=== PATIENT | female | born 1975 | race Caucasian/White ===

== ENCOUNTER 2022-01-20 11:05 | Emergency (ER) | payer BC ==
[2022-01-20] MEDS ORDERED: ONDANSETRON 4 MG (ODT) TAB ONE (11:48)
--- NOTE | 2022-01-20 12:30 | RAD REPORT ---
EXAM DESCRIPTION: CT - Head Brain Wo Cont - 01/20/2022 12:01 pm CLINICAL HISTORY: Headache, chronic, new features or increased frequency, MULTIPLE DRILL OPERATOR shunt placement approxi mately 1 year earlier COMPARISON: None TECHNIQUE: Axial 5 mm thick images of the head were obtained without IV contrast. All CT scans are performed using dose optimization technique as appropriate and may include automated exposure control or mA/KV adjustment according to patient size. FINDINGS: No intracranial hemorrhage, mass, edema or shift of mid-line structures. No acute infarcti on changes seen. No cortical edema or sulcal effacement seen. Ventricles are normal size. MULTIPLE DRILL OPERATOR shunt is in place. Tubing enters through a right frontal bone access site. Tip of the shunt tube is in the mi dline frontal horn of the lateral ventricles. Mastoid air cells and visualized portions of the paranasal sinuses are clear. No acute bony findings. IMPRESSION: Negative non-contrast CT head examination for acute finding. MULTIPLE DRILL OPERATOR shunt appears well positioned with the ventricles normal in size. No comparison is available.
--- NOTE | 2022-01-20 12:33 | RAD REPORT ---
EXAM DESCRIPTION: RAD - Shuntogram - 01/20/2022 12:19 pm CLINICAL HISTORY: Headache, history of APRICOT WASHER shunt placement 1 year earlier COMPARISON: No comparisons FINDINGS: Shunt tube is in place entering 3 right frontal bone access site. Tip of the shunt tube is in the midline, well-positioned. No abnormal bend, kink or disruption of the shunt tube seen. Distal tip is in the left-side pelvis. IUD is in place. Abdominal and pelvic bowel gas pattern is unremarkable. No acute chest finding. Cerv ical spine degenerative changes are present. C5-7 fusion changes are present. IMPRESSION: Negative shunt series
[2022-01-20] MEDS ORDERED: HYDROCODONE/APAP 5/325 MG TAB ONE (12:42)
--- NOTE | 2022-01-20 13:47 | ER ---
Nurse's Notes [facility] Name: Shelby Arias Age: 46 yrs Sex: Female : 1975 Arrival Date: 01/20/2022 Time: 11:08 Bed 9 Private MD: Diagnosis: Headache;Other visual disturbances Presentation: 01/20 11:17 Chief complaint: Patient states: "I had brain surgery last year in February for jd3 hydrocephalies and other stuff and had a shunt placed. well I am now starting to have migraines, and dizziness, nausea, visile disturbances. my doctor in [place] told me to come in and get my shunt adjusted.". Coronavirus screen: At this time, the client does not indicate any symptoms associated with coronavirus-19. Ebola Screen: No symptoms or risks identified at this time. Initial Sepsis Screen: Does the patient meet any 2 criteria? No. Patient's initial sepsis screen is negative. Does the patient have a suspected source of infection? No. Patient's initial sepsis screen is negative. Risk Assessment: Do you want to hurt yourself or someone else? Patient reports no desire to harm self or others. Onset of symptoms was January 20, 2022. 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 - Social history:: Smoking status: Reported history of juuling and/or vaping. Vital Signs: 11:23 BP 142 / 80; Pulse 53; Resp 16 S; Temp 98.1(TE); Pulse Ox 100% on R/A; Weight 77.11 kg jd3 (R); Height 5 ft. 3 in. (160.02 cm) (R); Pain 7/10; 11:23 Body Mass Index 30.11 (77.11 kg, 160.02 cm) jd3 ED Course: 11:08 Patient arrived in ED. as 11:20 Triage completed. jd3 11:24 Arm band placed on. jd3 11:34 Dashawn Medina MD is Attending Physician. kdr 12:02 CT Head Brain wo Cont In Process Unspecified. EDMS 12:21 Shuntogram XRAY In Process Unspecified. EDMS 12:55 Angela Maki, RN is Primary Nurse. iw 13:23 called the [employer] answering service at [phone] to page out local rep to call eb Dr. Medina regarding patient's RN [facility] Shunt. 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 Medina. eb Administered Medications: 11:44 Drug: Ondansetron 4 mg Route: PO; iw 12:38 Follow up: Response: No adverse reaction jd3 12:38 Drug: HYDROcodone-acetaminophen 5 mg-325 mg 1 tabs Route: PO; jd3 13:00 Follow up: Response: No adverse reaction iw 14:16 Drug: Diamox Sequels (acetaZOLAMIDE) Extended Release Capsule 500 mg Route: PO; iw 14:30 Follow up: Response: No adverse reaction iw Outcome: 13:47 Discharge ordered by . kdr 14:17 Patient left the ED. iw Signatures: Dispatcher [employer] Dashawn Kaminski MD MD kdr Martinez, Amelia as Williams, Irene, RN MAJOR iw Riley Smith RN RN jd3 Botello, Elizabeth eb
--- NOTE | 2022-01-20 13:48 | EDPHYS ---
Physician Documentation [facility] Name: Shelby Arias Age: 46 yrs Sex: Female : 1975 Arrival Date: 01/20/2022 Time: 11:08 Bed 9 Private MD: ED Physician Dashawn Medina HPI: 01/20 16:12 This 46 yrs old Female presents to ER via Ambulatory with complaints of shunt problems. kdr 16:12 Patient presents with generalized headache that has been ongoing and progressively kdr worsening over period of about a month. Patient had a RENTAL COORDINATOR shunt placed February of last year. It was a [employer] programmable RENTAL COORDINATOR shunt. The procedure was performed in [place]. She has no localized neurological care. Patient does not appear toxic or acutely ill in any way at this time. She does relate that she has had intermittent transient visual changes and a Aden of rushing sound in her ears when she has changes in her vision. She otherwise has been in her usual health and has been without evidence of upper respiratory tract infection or other acute illness.. Onset: The symptoms/episode began/occurred gradually, 1 month(s) ago. Severity of symptoms: At their worst the symptoms were very mild in the emergency department the symptoms are unchanged. The patient has experienced similar episodes in the past, Patient had multiple episodes of these presentations prior to her [employer] RENTAL COORDINATOR shunt placement.. The patient has not recently seen a physician. 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 - Social history:: Smoking status: Reported history of juuling and/or vaping. ROS: 16:12 Constitutional: Negative for fever, chills, and weight loss, Eyes: Negative for injury, kdr pain, redness, and discharge, ENT: Negative for injury, pain, and discharge, Neck: Negative for injury, pain, and swelling, Cardiovascular: Negative for chest pain, palpitations, and edema, Respiratory: Negative for shortness of breath, cough, wheezing, and pleuritic chest pain, Abdomen/GI: Negative for abdominal pain, nausea, vomiting, diarrhea, and constipation, Back: Negative for injury and pain, : Negative for injury, bleeding, discharge, and swelling, MS/Extremity: Negative for injury and deformity, Skin: Negative for injury, rash, and discoloration, Neuro: Negative for headache, weakness, numbness, tingling, and seizure activity. Psych: Negative for depression, anxiety, suicide ideation, homicidal ideation, and hallucinations, Allergy/Immunology: Negative for hives, rash, and allergies, Endocrine: Negative for neck swelling, polydipsia, polyuria, polyphagia, and marked weight changes. Exam: 16:12 Constitutional: This is a well developed, well nourished patient who is awake, alert, kdr and in no acute distress. Head/Face: Normocephalic, atraumatic. Eyes: Pupils equal round and reactive to light, extra-ocular motions intact. Lids and lashes normal. Conjunctiva and sclera are non-icteric and not injected. Cornea within normal limits. Periorbital areas with no swelling, redness, or edema. ENT: Nares patent. No nasal discharge, no septal abnormalities noted. Tympanic membranes are normal and external auditory canals are clear. Oropharynx with no redness, swelling, or masses, exudates, or evidence of obstruction, uvula midline. Mucous membranes moist. Neck: Trachea midline, no thyromegaly or masses palpated, and no cervical lymphadenopathy. Supple, full range of motion without nuchal rigidity, or vertebral point tenderness. No Meningismus. Chest/axilla: Normal chest wall appearance and motion. Nontender with no deformity. No lesions are appreciated. Cardiovascular: Regular rate and rhythm with a normal S1 and S2. No gallops, murmurs, or rubs. Normal PMI, no JVD. No pulse deficits. Respiratory: Lungs have equal breath sounds bilaterally, clear to auscultation and percussion. No rales, rhonchi or wheezes noted. No increased work of breathing, no retractions or nasal flaring. Abdomen/GI: Soft, non-tender, with normal bowel sounds. No distension or tympany. No guarding or rebound. No evidence of tenderness throughout. Back: No spinal tenderness. No costovertebral tenderness. Full range of motion. Skin: Warm, dry with normal turgor. Normal color with no rashes, no lesions, and no evidence of cellulitis. MS/ Extremity: Pulses equal, no cyanosis. Neurovascular intact. Full, normal range of motion. Psych: Awake, alert, with orientation to person, place and time. Behavior, mood, and affect are within normal limits. 16:12 Neuro: Orientation: is normal, Mentation: is normal, Memory: appropriate for stated age, Cranial nerves: grossly normal, no acute changes, Motor: Sensation: Vital Signs: 11:23 BP 142 / 80; Pulse 53; Resp 16 S; Temp 98.1(TE); Pulse Ox 100% on R/A; Weight 77.11 kg jd3 (R); Height 5 ft. 3 in. (160.02 cm) (R); Pain 7/10; 11:23 Body Mass Index 30.11 (77.11 kg, 160.02 cm) jd3 MDM: 13:47 Patient medically screened. kdr 16:12 Data reviewed: vital signs, nurses notes, lab test result(s), radiologic studies. kdr Counseling: I had a detailed discussion with the patient and/or guardian regarding: the historical points, exam findings, and any diagnostic results supporting the discharge/admit diagnosis, lab results, radiology results, the need for outpatient follow up. 01/20 11:36 Order name: CT Head Brain wo Cont; Complete Time: 13:01 kdr 01/20 11:36 Order name: Shuntogram XRAY; Complete Time: 13:01 kdr Administered Medications: 11:44 Drug: Ondansetron 4 mg Route: PO; iw 12:38 Follow up: Response: No adverse reaction jd3 12:38 Drug: HYDROcodone-acetaminophen 5 mg-325 mg 1 tabs Route: PO; jd3 13:00 Follow up: Response: No adverse reaction iw 14:16 Drug: Diamox Sequels (acetaZOLAMIDE) Extended Release Capsule 500 mg Route: PO; iw 14:30 Follow up: Response: No adverse reaction iw Disposition Summary: 01/20/22 13:47 Discharge Ordered Location: Home kdr Problem: an ongoing problem kdr Symptoms: have improved kdr Condition: Stable kdr Diagnosis - Headache kdr - Other visual disturbances kdr Followup: kdr - With: Private Physician - When: 2 - 3 days - Reason: If symptoms return, Further diagnostic work-up, Recheck today's complaints, Continuance of care, Re-evaluation by your physician Discharge Instructions: - Discharge Summary Sheet kdr - General Headache Without Cause kdr - Visual Disturbances kdr - Brain Shunt Home Guide kdr - Peritoneovenous Shunt Placement, Care After kdr Forms: - Medication Reconciliation Form kdr - Thank You Letter kdr Prescriptions: - acetazolamide 500 mg Oral capsule, extended release - take 1 capsule by ORAL route 2 times per day; 20 capsule; Refills: 0, Product kdr Selection Permitted - Zofran 4 mg Oral Tablet - take 1 tablet by ORAL route every 12 hours As needed; 6 tablet; Refills: 0, kdr Product Selection Permitted - Tramadol 50 mg Oral Tablet - take 1 tablet by ORAL route every 8 hours as needed; 12 tablet; Refills: 0, kdr Product Selection Permitted Signatures: Dispatcher [employer] Dashawn Kaminski MD MD kdr Angela Maki RN RN Riley James RN RN jd3
[2022-01-20] MEDS ORDERED: acetaZOLAMIDE 250 MG TAB ONE (14:15)
[2022-01-20 14:21] VITALS: BP 142/80; TEMP 98.1; O2SAT 100
[2022-01-20] MEDS ORDERED: acetaZOLAMIDE 250 MG TAB PO ONE ×2 (15:00)
== END 2022-01-20 14:17 | disposition home or self-care (01) ==
LOC: ER 11:05
DX: R51.9 Headache, unspecified (principal); H53.8 Other visual disturbances; Z98.2 Presence of cerebrospinal fluid drainage device; E11.9 Type 2 diabetes mellitus without complications; Z88.8 Allergy status to other drugs, medicaments and biological substances; Z91.013 Allergy to seafood
CPT/HCPCS: 49427; 70450; 75809; 99283

== ENCOUNTER 2024-06-16 07:53 | Emergency (ER) | payer BC, SELFPAY ==
--- OUTSIDE RECORDS SUMMARY | 2024-06-16 07:57 | XMS REPORT | Continuity of Care Document ---
Author Name Unknown Address [address] [facility] [address] [place] [address] [facility] Address [address] [facility] 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 Name Role Phone ASCENCION VICENTE Primary Care Physician FELI Norris Attending Clinician UnavailFELI Solitario Attending Clinician UnavailFeli Solitario DO Attending Clinician [phone] TAINA SHORT Attending Clinician UnavailTAINA Carvajal Attending Clinician Feli Carrasquillo DO Attending Clinician [phone] YVETTE BORJA.HReggie Attending Clinician UnavailROBI Spangler Attending Clinician Unavail ROBI Dubon Attending Clinician Unavail benjamín Borja MD, Sendmoriah K.HReggie Attending Clinician [phone] Doctor Unassigned, Kendrick Attending Clinician U Robi Ambrosio MD Attending Clinician [phone] Therapist, Adc Respiratory Attending Clinician U Vicente Obregon Attending Clinician [phone] Fortunato Fischer MD Attending Clinician [phone] Yu Longoria RN Attending Clinician [phone] Aryan Fay MD Attending Clinician [phone] FORTUNATO FISCHER Attending Clinician Unavailable YVETTE BORJA K.HReggie Admitting Clinician Fortunato Houser MD Admitting Clinician FORTUNATO FISCHER Admitting Clinician Unavailable Payers Payer Name Policy Type Policy Number Effective Date Expirati on Date Source [employer] [place] - OUT [employer] [id number] 2018 00:00:00 2023 00:00:00 Problems Condition Name Condition Details Condition Category Status Onset Date Resolution Date Last Treatment Date Treating Clinician Comments Source Bacterial vaginosis Bacterial Vaginosis Problem Active 2023-08 0 00:00: 00 [facility] Type 2 diabetes mellitus Type 2 Diabetes Mellitus Problem Active 2023-08 0 00:00: 00 [facility] Bipolar disorder Bipolar Disorder Problem Active 2023-08 0 00:00: 00 [facility] Alcohol dependence Alcohol Dependence Problem Active 2023-08 0 00:00: 00 [facility] Nicotine dependence Nicotine Dependence Problem Active 2023-08 0 00:00: 00 [facility] Abnormal heart beat Abnormal Heart Beat Problem Active 2023-08 0 00:00: 00 [facility] Chronic obstructiv e pulmonary disease Chronic Obstructiv e Pulmonary Disease Problem Active 2023-08 0 00:00: 00 [facility] Gastroesop hageal reflux disease Gastroesop hageal Reflux Disease Problem Active 2023-08 0 00:00: 00 [facility] Gastropare sis syndrome Gastropare sis Syndrome Problem Active 2023-08 0 00:00: 00 [facility] Acute vaginitis Acute Vaginitis Problem Active 2023-08 0-24 00:00: 00 [facility] Postcoital bleeding Postcoital Bleeding Problem Active 2023-08 024 00:00: 00 [facility] Abnormal uterine bleeding Abnormal Uterine Bleeding Problem Active 2023-08 0-24 00:00: 00 [facility] Menopausal symptom Menopausal Symptom Problem Active 2023-08 0-24 00:00: 00 [facility] Fibromyalg ia Fibromyalg ia Problem Active 2023-08 0-24 00:00: 00 [facility] Fatigue Fatigue Problem Active 2023-08 0-24 00:00: 00 [facility] Heartburn Heartburn Problem Active 2023-08 0-24 00:00: 00 [facility] Atypical squamous cells of undetermin ed significan ce on cervical Papanicola ou smear Atypical Squamous Cells of Undetermin ed Significan ce on Cervical Papanicola ou Smear Problem Active 2023-08 0-24 00:00: 00 [facility] Pelvic and perineal pain Pelvic and Perineal Pain Problem Active 2023-08 0-24 00:00: 00 [facility] Candidal intertrigo Candidal Intertrigo Problem Active 2023-08 0- 00:00: [address] 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 Disease Active 01-27 00:00: 00 [facility] Allergies, Adverse Reactions, Alerts Allergy Name Allergy Type Status Severity Reaction(s) Onset Date Inactive Date Treating Clinician Comments Source Cefazoli n Propensi ty to adverse reaction s Active Anaphylaxis 01-27 00:00: 00 [facility] Venlafax ine Propensi ty to adverse reaction s Active Other - See comments 01-27 00:00: 00 Panic attack [facility] Shrimp Propensi ty to adverse reaction s Active Anaphylaxis 01-27 00:00: 00 [facility] Hydroxyz ine Hcl Propensi ty to adverse reaction s Active Other - See comments 01-27 00:00: 00 migraine [facility] CEFAZOLI N DRUG INGREDI Active Anaphylaxis 01-27 00:00: 00 [facility] VENLAFAX INE DRUG INGREDI Active Other-Cmnt 01-27 00:00: 00 [facility] SHRIMP DRUG INGREDI Active Anaphylaxis 01-27 00:00: 00 [facility] HYDROXYZ INE HCL DRUG INGREDI Active Other-Cmnt 01-27 00:00: 00 [facility] NO KNOWN ALLERGIE S Drug Class Active [facility] ANCEF Allergy to substanc e Active [facility] EFFEXOR Allergy to substanc e Active [facility] Vistaril Allergy to substanc e Active [facility] Social History Social Habit Start Date Stop Date Quantity Comments Source Gender identity [facility] History of tobacco use Passive smoker [facility] Tobacco use and exposure 2023-03-25 00:00:00 2023-03-25 00:00:00 Smokeless tobacco non-user [facility] History of Social function 2023-03-25 00:00:00 2023-03-25 00:00:00 [facility] Exposure to SARS-CoV-2 (event) 2022-01-17 00:00:00 2022-01-27 09:37:00 Not sure [facility] Sex assigned at 1975 00:00:00 1975 00:00:00 [facility] Smoking Status Start Date Stop Date Source Tobacco smoking consumption unknown [facility] Current Every Day Smoker [facility] Ex-smoker 2023-03-25 00:00:00 2023-03-25 00:00:00 [facility] Medications Ordered Medication Name Filled Medication Name Start Date Stop Date Current Medication? Ordering Clinician Indication Dosage Frequency Signature (SIG) Comments Components Source nitroglycer in (NITROSTAT) sublingual tablet 0.8 mg 10-09 19:15: 00 10-09 19:05 :00 No [id number] .8mg 0.8 mg, Sublingual , ONCE, 1 dose, On Sat10/09/23 at 1315, Routine [facility] metoprolol tartrate (LOPRESSOR) tablet 50 mg 10-09 19:15: 00 10-09 18:46 :00 No [id number] 50mg 50 mg, Oral, ONCE, 1 dose, On Sat10/09/23 at 1315, Routine [facility] metoprolol tartrate (LOPRESSOR) tablet 100 mg 10-09 19:15: 00 10-09 18:24 :00 No [id number] 100mg 100 mg, Oral, ONCE, 1 dose, On Sat10/09/23 at 1315, Routine [facility] iopamidol (ISOVUE 370-500 mL) injection 70 mL 10-09 18:30: 00 10-09 18:20 :00 No [id number] 70mL 70 mL, Intravenou s, ONCE, 1 dose, On Sat10/09/23 at 1230, Routine [facility] propranoloL 10 mg tablet 2022-08 13:33: 56 Yes 10mg Take 1 tablet by mouth in the morning and 1 tablet in the evening. [facility] rosuvastati n 10 mg tablet 2022-08 13:33: 47 Yes 10mg Take 1 tablet by mouth at bedtime. [facility] QUEtiapine 100 mg tablet 2022-08 13:14: 41 Yes 200mg Take 2 tablets by mouth at bedtime. [facility] TRULICITY 1.5 mg/0.5 mL PnIj 2022-08 00:00: 00 Yes 1{appli cation} inject 1 Applicatio n under the skin. [facility] traMADoL 50 mg tablet 04-18 14:05: 24 04-18 00:00 :00 No 50mg Take 1 tablet by mouth every 6 (six) hours as needed. [facility] QUEtiapine 100 mg tablet 04-18 14:05: 15 Yes 200mg Take 2 tablets by mouth at bedtime. [facility] Omeprazole 20 mg tablet 04-18 14:04: 58 Yes 40mg Take 2 tablets by mouth at bedtime. [facility] lamoTRIgine 200 mg tablet 04-18 14:04: 56 Yes 200mg Take 1 tablet by mouth in the morning and 1 tablet in the evening. [facility] Cetirizine 10 mg capsule 04-18 14:04: 54 Yes 10mg Take 1 capsule by mouth in the morning. [facility] metFORMIN 500 mg tablet 04-18 13:48: 01 Yes 500mg Take 1 tablet by mouth in the morning and 1 tablet in the evening. Take with meals. [facility] insulin degludec (TRESIBA U-100 INSULIN SC) 04-18 13:48: 01 Yes 20U inject 20 Units under the skin at bedtime. [facility] propranoloL 10 mg tablet 04-18 13:48: 01 Yes 10mg Take 1 tablet by mouth in the morning and 1 tablet in the evening. [facility] rosuvastati n 10 mg tablet 04-18 13:48: 01 Yes 10mg Take 1 tablet by mouth at bedtime. [facility] propranoloL 10 mg tablet 03-25 11:33: 19 Yes 10mg Take 1 tablet by mouth in the morning and 1 tablet in the evening. [facility] metFORMIN 500 mg tablet 03-25 11:33: 19 Yes 500mg Take 1 tablet by mouth in the morning and 1 tablet in the evening. Take with meals. [facility] insulin degludec (TRESIBA U-100 INSULIN SC) 03-25 11:33: 19 Yes 20U inject 20 Units under the skin at bedtime. [facility] rosuvastati n 10 mg tablet 03-25 11:33: 19 Yes 10mg Take 1 tablet by mouth at bedtime. [facility] vilazodone (VIIBRYD) 40 mg tablet 03-25 11:30: 59 03-25 00:00 :00 No 40mg Take 40 mg by mouth daily. [facility] traMADoL 50 mg tablet 03-25 11:30: 58 Yes 50mg Take 1 tablet by mouth every 6 (six) hours as needed. [facility] QUEtiapine 100 mg tablet 03-25 11:30: 58 Yes 200mg Take 2 tablets by mouth at bedtime. [facility] Omeprazole 20 mg tablet 03-25 11:30: 58 Yes 40mg Take 2 tablets by mouth at bedtime. [facility] lamoTRIgine 200 mg tablet 03-25 11:30: 58 Yes 200mg Take 1 tablet by mouth in the morning and 1 tablet in the evening. [facility] Cetirizine 10 mg capsule 03-25 11:30: 58 Yes 10mg Take 1 capsule by mouth in the morning. [facility] gabapentin 400 mg capsule 03-25 11:30: 34 03-25 00:00 :00 No 800mg Take 800 mg by mouth at bedtime. [facility] atenoloL 50 mg tablet 03-25 11:30: 28 03-25 00:00 :00 No 50mg Take 50 mg by mouth at bedtime. [facility] ALPRAZolam 0.5 mg tablet 03-25 11:30: 21 03-25 00:00 :00 No .5mg Take 0.5 mg by mouth 3 (three) times daily as needed. [facility] acetaZOLAMI DE 250 mg tablet 03-25 11:30: 12 03-25 00:00 :00 No 500mg Take 500 mg by mouth 2 (two) times daily. [facility] acetaZOLAMI DE 250 mg tablet 02-01 19:29: 26 Yes 500mg Take 500 mg by mouth 2 (two) times daily. [facility] QUEtiapine 100 mg tablet 02-01 19:29: 26 Yes 200mg Take 200 mg by mouth at bedtime. [facility] atenoloL 50 mg tablet 02-01 19:29: 26 Yes 50mg Take 50 mg by mouth at bedtime. [facility] Omeprazole 20 mg tablet 02-01 19:29: 26 Yes 40mg Take 40 mg by mouth at bedtime. [facility] gabapentin 400 mg capsule 02-01 19:29: 26 Yes 800mg Take 800 mg by mouth at bedtime. [facility] vilazodone (VIIBRYD) 40 mg tablet 02-01 19:29: 26 Yes 40mg Take 40 mg by mouth daily. [facility] ALPRAZolam 0.5 mg tablet 02-01 19:29: 26 Yes .5mg Take 0.5 mg by mouth 3 (three) times daily as needed. [facility] lamoTRIgine 200 mg tablet 02-01 19:29: 26 Yes 200mg Take 200 mg by mouth 2 (two) times daily. [facility] Cetirizine 10 mg capsule 02-01 19:29: 26 Yes 10mg Take 10 mg by mouth daily. [facility] traMADoL 50 mg tablet 02-01 19:29: 26 Yes 50mg Take 50 mg by mouth every 6 (six) hours as needed. [facility] dicyclomine (BENTYL) 10 mg/5 mL oral solution 5 mg 02-01 13:00: 00 Yes 5mg 5 mg, Oral, TID, First dose on Sat02/01/22 at 0800, Until Discontinu ed, Routine [facility] dicyclomine 10 mg/5 mL oral solution 02-01 00:00: 00 03-04 04:59 :00 No [id number] 5mg Take 2.5 mL by mouth 3 (three) times daily for 30 days. [facility] HYDROcodone -acetaminop hen (NORCO) 5-325 mg tablet 02-01 00:00: 00 02-09 04:59 :00 No [id number] 1{tbl} Take 1 tablet by mouth every 6 (six) hours as needed for Pain (scale 7-10) for up to 7 days. Indication s: acute pain [facility] traMADoL 50 mg tablet 01-30 15:24: 49 Yes 50mg Take 50 mg by mouth every 6 (six) hours as needed. [facility] acetaZOLAMI DE 250 mg tablet 01-30 15:24: 49 Yes 500mg Take 500 mg by mouth 2 (two) times daily. [facility] QUEtiapine 100 mg tablet 01-30 15:24: 49 Yes 200mg Take 200 mg by mouth at bedtime. [facility] atenoloL 50 mg tablet 01-30 15:24: 49 Yes 50mg Take 50 mg by mouth at bedtime. [facility] Omeprazole 20 mg tablet 01-30 15:24: 49 Yes 40mg Take 40 mg by mouth at bedtime. [facility] gabapentin 400 mg capsule 01-30 15:24: 49 Yes 800mg Take 800 mg by mouth at bedtime. [facility] vilazodone (VIIBRYD) 40 mg tablet 01-30 15:24: 49 Yes 40mg Take 40 mg by mouth daily. [facility] ALPRAZolam 0.5 mg tablet 01-30 15:24: 49 Yes .5mg Take 0.5 mg by mouth 3 (three) times daily as needed. [facility] lamoTRIgine 200 mg tablet 01-30 15:24: 49 Yes 200mg Take 200 mg by mouth 2 (two) times daily. [facility] Cetirizine 10 mg capsule 01-30 15:24: 49 Yes 10mg Take 10 mg by mouth daily. [facility] enoxaparin (LOVENOX) injection 40 mg 01-30 13:00: 00 Yes 40mg 40 mg, Subcutaneo us, Q24H, First dose (after last reorder) on Sat01/30/22 at 0800, Until Discontinu ed, Routine [facility] morpHINE (2 mg/mL) injection 2 mg 01-28 22:47: 49 02-01 17:47 :43 No 2mg 2 mg, Slow IV Push, Q4HPRN, Starting on 01/28/22 at 1747, Until [place] 02/01/22 at 1247, Routine, Pain (scale 7-10) [facility] enoxaparin (LOVENOX) injection 40 mg 01-28 22:45: 00 01-28 23:01 :00 No 40mg 40 mg, Subcutaneo us, ONCE, 1 dose, On 01/28/22 at 1745, Routine [facility] methocarbam oL (ROBAXIN) tablet 500 mg 01-28 17:29: 53 Yes 500mg 500 mg, Oral, Q6HPRN, Starting on 01/28/22 at 1229, Until Discontinu ed, Routine, back pain [facility] iopamidol (ISOVUE 370-500 mL) injection 70 mL 01-28 05:45: 00 01-28 05:45 :00 No [id number] 70mL 70 mL, Intravenou s, ONCE, 1 dose, On [place] 01/28/22 at 0100, [facility] Sliding Scale Insulin-Reg ular + Fsbg Testing 01-28 02:00: 00 Yes Subcutaneo us, AC+HS, First dose on 01/27/22 at 2100, Until Discontinu ed, [facility] QUEtiapine (SEROQUEL) tablet 200 mg 01-28 02:00: 00 Yes 200mg 200 mg, Oral, QHS, First dose on 01/27/22 at 2100, Until Discontinu ed, Routine [facility] gabapentin (NEURONTIN) capsule 800 mg 01-28 02:00: 00 Yes 800mg 800 mg, Oral, QHS, First dose on 01/27/22 at 2100, Until Discontinu ed, Routine [facility] atenoloL (TENORMIN) tablet 50 mg 01-28 02:00: 00 Yes 50mg 50 mg, Oral, QHS, First dose on 01/27/22 at 2100, Until Discontinu ed, Routine [facility] famotidine (PEPCID AC) tablet 20 mg 01-28 01:00: 00 Yes 20mg 20 mg, Oral, BID, First dose on 01/27/22 at 1999, Until Discontinu ed, Routine [facility] docusate (COLACE) capsule 100 mg 01-28 01:00: 00 Yes 100mg 100 mg, Oral, BID, First dose on 01/27/22 at 1999, Until Discontinu ed, Routine [facility] lamoTRIgine (LAMICTAL) tablet 200 mg 01-28 01:00: 00 Yes 200mg 200 mg, Oral, BID, First dose on 01/27/22 at 1999, Until Discontinu ed, Routine [facility] acetaZOLAMI DE (DIAMOX) tablet 500 mg 01-28 01:00: 00 Yes 500mg 500 mg, Oral, BID, First dose on 01/27/22 at 1999, Until Discontinu ed, Routine [facility] morpHINE (4 mg/mL) injection 4 mg 01-27 23:15: 00 01-27 22:11 :00 No 4mg 4 mg, Slow IV Push, ONCE, 1 dose, On 01/27/22 at 1815, Routine [facility] lidocaine 1% (XYLOCAINE) 10 mg/mL (1 %) injection 20 mL 01-27 22:45: 00 01-27 22:45 :00 No 20mL 20 mL, Infiltrati on, ONCE, 1 dose, On 01/27/22 at 1745, Routine [facility] ondansetron (ZOFRAN (PF)) injection 4 mg 01-27 21:42: 36 Yes 4mg 4 mg, Slow IV Push, Q6HPRN, Nausea and Vomiting (N/V), Starting on 01/27/22 at 1642
Do ses of ondansetro n 16 mg and above need to be administer ed via IV piggyback. For Dose >=24mg ECG monitoring is advisable.
[facility] glucagon (GLUCAGEN DIAGNOSTIC KIT) injection 1 mg 01-27 21:41: 46 Yes 1mg 1 mg, Intramuscu lar, PRN, Starting on 01/27/22 at 1641, Until Discontinu ed, BIANCA, Blood Glucose < or = 70 mg/dL and patient is unable to swallow or has mental changes. [facility] dextrose 10% (D10W) bolus infusion 250 mL 01-27 21:41: 46 Yes 250mL 250 mL, IV Infusion, PRN - SEE INSTRUCTIO NS, Administer over 60 Minutes, hypoglycem ia glucose < 40, Starting on 01/27/22 at 1641
De xtrose 10% 250 mL bag contains:& nbsp;10 gm = 100 mL 20 gm = 200 mL 25 gm = 250 mL (whole bag) The maximum rate at which dextrose can be infused without producing glycosuria is 0.5 g/kg/hour. &nbs p;BUD: If wrapper is open bag is good for 30 days at room temperatur e. <b r> [facility] HYDROcodone -acetaminop hen (NORCO 5) 5-325 mg tablet 1 tablet 01-27 21:41: 31 Yes 1{tbl} 1 tablet, Oral, Q6HPRN, Starting on 01/27/22 at 1641, Until Discontinu ed, Routine, Pain (scale 7-10) [facility] acetaminoph en (TYLENOL) tablet 325 mg 01-27 21:41: 29 Yes 325mg 325 mg, Oral, Q4HPRN, Starting on 01/27/22 at 1641, Until Discontinu ed, Routine, Pain (scale 4-6) [facility] acetaminoph en (TYLENOL) tablet 325 mg 01-27 21:41: 28 Yes 325mg 325 mg, Oral, Q6HPRN, Starting on 01/27/22 at 1641, Until Discontinu ed, Routine, Pain (scale 1-3) [facility] bisacodyL (DULCOLAX) suppository 10 mg 01-27 21:40: 20 Yes 10mg 10 mg, Rectal, QHSPRN, Starting on 01/27/22 at 1640, Until Discontinu ed, Routine, Constipati on [facility] NaCl 0.9% (NS) injection 5 mL 01-27 21:40: 20 Yes 5mL 5 mL, Slow IV Push, PRN - SEE INSTRUCTIO NS, Starting on 01/27/22 at 1640, Until Discontinu ed, 10 mL [facility] traMADoL (ULTRAM) tablet 50 mg 01-27 21:40: 04 Yes 50mg 50 mg, Oral, Q6HPRN, Starting on 01/27/22 at 1640, Until Discontinu ed, Routine, Pain (scale 4-6) [facility] ALPRAZolam (XANAX) tablet 0.5 mg 01-27 21:39: 34 Yes .5mg 0.5 mg, Oral, TIDPRN, Starting on 01/27/22 at 1639, Until Discontinu ed, Routine, anxiety [facility] morpHINE (4 mg/mL) injection 4 mg 01-27 20:00: 00 01-27 19:03 :00 No 4mg 4 mg, Slow IV Push, ONCE, 1 dose, On 01/27/22 at 1500, STAT [facility] methocarbam oL (ROBAXIN) tablet 1,000 mg 01-27 16:45: 00 01-27 17:00 :00 No 1000mg 1,000 mg, Oral, ONCE, 1 dose, On 01/27/22 at 1145, BIANCA [facility] NaCl 0.9% (NS) bolus infusion 500 mL 01-27 16:45: 00 01-27 17:57 :00 No 500mL at 999 mL/hr, 500 mL, IV Infusion, ONCE, 1 dose, On 01/27/22 at 1145, STAT [facility] ondansetron (ZOFRAN (PF)) injection 4 mg 01-27 16:45: 00 01-27 16:59 :00 No 4mg 4 mg, Slow IV Push, ONCE, 1 dose, On 01/27/22 at 1145, BIANCA [facility] ketorolac (TORADOL) injection 15 mg 01-27 16:45: 00 01-27 17:00 :00 No 15mg 15 mg, Slow IV Push, ONCE, 1 dose, On 01/27/22 at 1145, BIANCA [facility] albuterol sulfate HFA 90 mcg/actuati on aerosol inhaler albuterol sulfate HFA 90 mcg/actuati on aerosol inhaler No albuterol sulfate HFA 90 mcg/actuat ion aerosol inhaler [facility] BD Ultra-Fine Micro Pen Needle 32 gauge x 1/4" USE DIRECTED WITH TRESIBA PEN AT BEDTIME BD Ultra-Fine Micro Pen Needle 32 gauge x 1/4" USE DIRECTED WITH TRESIBA PEN AT BEDTIME No BD Ultra-Fine Micro Pen Needle 32 gauge x 1/4" USE DIRECTED WITH TRESIBA PEN AT BEDTIME [facility] clonazepam 1 mg tablet clonazepam 1 mg tablet No clonazepam 1 mg tablet [facility] doxycycline hyclate 100 mg capsule Take 1 capsule twice a day by oral route for 14 days. doxycycline hyclate 100 mg capsule Take 1 capsule twice a day by oral route for 14 days. No 1capsul e(s) BID doxycyclin e hyclate 100 mg capsule Take 1 capsule twice a day by oral route for [address] [facility] duloxetine 30 mg capsule,del ayed release duloxetine 30 mg capsule,del ayed release No duloxetine 30 mg capsule,de layed release [facility] duloxetine 60 mg capsule,del ayed release TAKE 1 CAPSULE BY MOUTH EVERY DAY duloxetine 60 mg capsule,del ayed release TAKE 1 CAPSULE BY MOUTH EVERY DAY No duloxetine 60 mg capsule,de layed release TAKE 1 CAPSULE BY MOUTH EVERY DAY [facility] ergocalcife rol (vitamin D2) 1,250 mcg (50,000 unit) capsule TAKE 1 CAPSULE BY MOUTH 1 TIME EVERY WEEK ergocalcife rol (vitamin D2) 1,250 mcg (50,000 unit) capsule TAKE 1 CAPSULE BY MOUTH 1 TIME EVERY WEEK No ergocalcif anastasia (vitamin D2) 1,250 mcg (50,000 unit) capsule TAKE 1 CAPSULE BY MOUTH 1 TIME EVERY WEEK [facility] eszopiclone 3 mg tablet eszopiclone 3 mg tablet No eszopiclon e 3 mg tablet [facility] ezetimibe 10 mg tablet ezetimibe 10 mg tablet No ezetimibe 10 mg tablet [facility] fenofibrate nanocrystal lized 48 mg tablet fenofibrate nanocrystal lized 48 mg tablet No fenofibrat e nanocrysta llized 48 mg tablet [facility] fluticasone 250 mcg-salmete rol 50 mcg/dose blistr powdr for inhalation fluticasone 250 mcg-salmete rol 50 mcg/dose blistr powdr for inhalation No fluticason e 250 mcg-salmet anastasia 50 mcg/dose blistr powdr for inhalation [facility] ibuprofen 600 mg tablet TAKE 1 TABLET BY MOUTH EVERY 6 HOURS NEEDED FOR PAIN ibuprofen 600 mg tablet TAKE 1 TABLET BY MOUTH EVERY 6 HOURS NEEDED FOR PAIN No ibuprofen 600 mg tablet TAKE 1 TABLET BY MOUTH EVERY 6 HOURS NEEDED FOR PAIN [facility] lamotrigine ER 100 mg tablet,exte nded release 24 hr TAKE 1 TABLET BY MOUTH DAILY lamotrigine ER 100 mg tablet,exte nded release 24 hr TAKE 1 TABLET BY MOUTH DAILY No lamotrigin e ER 100 mg tablet,ext ended release 24 hr TAKE 1 TABLET BY MOUTH DAILY [facility] lamotrigine ER 300 mg tablet,exte nded release 24 hr TAKE 1 TABLET BY MOUTH DAILY lamotrigine ER 300 mg tablet,exte nded release 24 hr TAKE 1 TABLET BY MOUTH DAILY No lamotrigin e ER 300 mg tablet,ext ended release 24 hr TAKE 1 TABLET BY MOUTH DAILY [facility] Latuda Latuda No Latuda [facility] lurasidone 40 mg tablet TAKE ONE-HALF BY MOUTH NIGHTLY WITH MEALS FOR 7 DAYS THEN INCREASE TO 1 TABLET DAILY lurasidone 40 mg tablet TAKE ONE-HALF BY MOUTH NIGHTLY WITH MEALS FOR 7 DAYS THEN INCREASE TO 1 TABLET DAILY No lurasidone 40 mg tablet TAKE ONE-HALF BY MOUTH NIGHTLY WITH MEALS FOR 7 DAYS THEN INCREASE TO 1 TABLET DAILY [facility] metformin 1,000 mg tablet metformin 1,000 mg tablet No metformin 1,000 mg tablet [facility] methylpredn isolone 4 mg tablets in a dose pack FOLLOW PACKAGE DIRECTIONS methylpredn isolone 4 mg tablets in a dose pack FOLLOW PACKAGE DIRECTIONS No methylpred nisolone 4 mg tablets in a dose pack FOLLOW PACKAGE DIRECTIONS [facility] metronidazo le 500 mg tablet Take 1 tablet every 12 hours by oral route for 7 days. metronidazo le 500 mg tablet Take 1 tablet every 12 hours by oral route for 7 days. No 1 Q12H metronidaz ole 500 mg tablet Take 1 tablet every 12 hours by oral route for [address] [facility] Mirena 21 mcg/24 hr (up to 8 years) 52 mg intrauterin e device Take by intrauterin e route. Mirena 21 mcg/24 hr (up to 8 years) 52 mg intrauterin e device Take by intrauterin e route. No Mirena 21 mcg/24 hr (up to 8 years) 52 mg intrauteri ne device Take by intrauteri ne route. [facility] mirtazapine 15 mg tablet TAKE 1 TABLET BY MOUTH DAILY AT BEDTIME mirtazapine 15 mg tablet TAKE 1 TABLET BY MOUTH DAILY AT BEDTIME No mirtazapin e 15 mg tablet TAKE 1 TABLET BY MOUTH DAILY AT BEDTIME [facility] nystatin 100,000 unit/gram topical powder APPLY TO THE AFFECTED AREA(S) BY TOPICAL ROUTE 2 TIMES PER DAY nystatin 100,000 unit/gram topical powder APPLY TO THE AFFECTED AREA(S) BY TOPICAL ROUTE 2 TIMES PER DAY No nystatin 100,000 unit/gram topical powder APPLY TO THE AFFECTED AREA(S) BY TOPICAL ROUTE 2 TIMES PER DAY [facility] olanzapine 2.5 mg tablet olanzapine 2.5 mg tablet No olanzapine 2.5 mg tablet [facility] olanzapine 5 mg tablet olanzapine 5 mg tablet No olanzapine 5 mg tablet [facility] omeprazole 20 mg capsule,del ayed release TAKE 1 CAPSULE BY MOUTH EVERY DAY omeprazole 20 mg capsule,del ayed release TAKE 1 CAPSULE BY MOUTH EVERY DAY No omeprazole 20 mg capsule,de layed release TAKE 1 CAPSULE BY MOUTH EVERY DAY [facility] omeprazole 40 mg capsule,del ayed release TAKE 1 CAPSULE BY MOUTH DAILY omeprazole 40 mg capsule,del ayed release TAKE 1 CAPSULE BY MOUTH DAILY No omeprazole 40 mg capsule,de layed release TAKE 1 CAPSULE BY MOUTH DAILY [facility] ondansetron HCl 8 mg tablet TAKE 1 TABLET BY MOUTH DAILY NEEDED FOR NAUSEA ondansetron HCl 8 mg tablet TAKE 1 TABLET BY MOUTH DAILY NEEDED FOR NAUSEA No ondansetro n HCl 8 mg tablet TAKE 1 TABLET BY MOUTH DAILY NEEDED FOR NAUSEA [facility] Ozempic 0.25 mg or 0.5 mg (2 mg/3 mL) subcutaneou s pen injector INJECT 0.25 MG SUBCUTANEOU S ONCE EVERY WEEK Ozempic 0.25 mg or 0.5 mg (2 mg/3 mL) subcutaneou s pen injector INJECT 0.25 MG SUBCUTANEOU S ONCE EVERY WEEK No Ozempic 0.25 mg or 0.5 mg (2 mg/3 mL) subcutaneo us pen injector INJECT 0.25 MG SUBCUTANEO US ONCE EVERY WEEK [facility] phenazopyri dine 200 mg tablet phenazopyri dine 200 mg tablet No phenazopyr idine 200 mg tablet [facility] propranolol 20 mg tablet propranolol 20 mg tablet No propranolo l 20 mg tablet [facility] Tresiba FlexTouch U-200 insulin 200 unit/mL (3 mL) subcutaneou s pen ADMINISTER 20 UNITS UNDER THE SKIN EVERY NIGHT Tresiba FlexTouch U-200 insulin 200 unit/mL (3 mL) subcutaneou s pen ADMINISTER 20 UNITS UNDER THE SKIN EVERY NIGHT No Tresiba FlexTouch U-200 insulin 200 unit/mL (3 mL) subcutaneo us pen ADMINISTER 20 UNITS UNDER THE SKIN EVERY NIGHT [facility] Immunizations Ordered Immunization Name Filled Immunization Name Date Status Comments Source Influenza Virus Vaccine Quad IM, Preserv and ABX Free 6 MO-64 YRS (FLUCELVAX) 2023-08-13 00:00:00 Completed [facility] Influenza Virus Vaccine Quad IM, Preserv and ABX Free 6 MO-64 YRS (FLUCELVAX) Unknown Completed [facility] Influenza Virus Vaccine Quad IM, Preserv and ABX Free 6 MO-64 YRS (FLUCELVAX) Unknown Completed [facility] Influenza Virus Vaccine Quad IM, Preserv and ABX Free 6 MO-64 YRS (FLUCELVAX) Unknown Completed [facility] Influenza Virus Vaccine Quad IM, Preserv and ABX Free 6 MO-64 YRS (FLUCELVAX) Unknown Completed [facility] Vital Signs Vital Name Observation Time Observation Value Comments S ource Height 2024-06-04 00:00:00 63 [in_i] [facility] BP Diastolic 2024-06-04 00:00:00 62 mm[Hg] [facility] BMI (Body Mass Index) 2024-06-04 00:00:00 14.7 kg/m2 [facility] BP Systolic 2024-06-04 00:00:00 130 mm[Hg] [facility] Body Weight 2024-06-04 00:00:00 83 [lb_av] [facility] Systolic blood pressure 2023-08-13 15:03:00 160 mm[Hg] [facility] Diastolic blood pressure 2023-08-13 15:03:00 90 mm[Hg] [facility] Heart rate 2023-08-13 15:03:00 75 /min Un[facility] Respiratory rate 2023-08-13 15:03:00 18 /min [facility] Oxygen saturation in Arterial blood by Pulse oximetry 2023-08-13 15:03:00 98 /min [facility] Body temperature 2023-08-13 15:01:00 36.5 Melisa [facility] Body height 2023-08-13 15:01:00 160 cm Univ [facility] Body weight 2023-08-13 15:01:00 83.235 kg [facility] BMI 2023-08-13 15:01:00 32.51 kg/m2 Univ [facility] Systolic blood pressure 2023-08-01 19:21:00 143 mm[Hg] [facility] Diastolic blood pressure 2023-08-01 19:21:00 91 mm[Hg] [facility] Heart rate 2023-08-01 19:21:00 92 /min Unive [facility] Body height 2023-08-01 19:21:[address] [facility] 2023-08-01 19:21:00 80.74 kg Univ [facility] BMI 2023-08-01 19:21:00 31.53 kg/m2 [facility] Oxygen saturation in Arterial blood by Pulse oximetry 2023-08-01 19:21:00 98 /min [facility] Systolic blood pressure 2023-05-28 17:03:00 136 mm[Hg] [facility] Diastolic blood pressure 2023-05-28 17:03:00 84 mm[Hg] [facility] Heart rate 2023-05-28 16:59:00 91 /min Unive [facility] Respiratory rate 2023-05-28 16:59:00 18 /min [facility] Body height 2023-05-28 16:59:00 160 cm [facility] Body weight 2023-05-28 16:59:00 81.647 kg Univ [facility] BMI 2023-05-28 16:59:00 31.89 kg/m2 [facility] Oxygen saturation in Arterial blood by Pulse oximetry 2023-05-28 16:59:00 98 /min [facility] Systolic blood pressure 2023-04-18 18:42:00 138 mm[Hg] [facility] Diastolic blood pressure 2023-04-18 18:42:00 78 mm[Hg] [facility] Heart rate 2023-04-18 18:42:00 84 /min Un[facility] Body height 2023-04-18 18:42:00 160 cm Univ [facility] Body weight 2023-04-18 18:42:00 80.06 kg Univ [facility] BMI 2023-04-18 18:42:00 31.27 kg/m2 Univ [facility] Oxygen saturation in Arterial blood by Pulse oximetry 2023-04-18 18:42:00 98 /min [facility] Systolic blood pressure 2023-03-25 16:03:00 138 mm[Hg] [facility] Diastolic blood pressure 2023-03-25 16:03:00 89 mm[Hg] [facility] Heart rate 2023-03-25 16:03:00 66 /min [facility] Respiratory rate 2023-03-25 16:03:00 22 /min [facility] Body height 2023-03-25 16:03:00 160 cm Univ [facility] Body weight 2023-03-25 16:03:00 77.792 kg [facility] BMI 2023-03-25 16:03:00 30.38 kg/m2 [facility] Oxygen saturation in Arterial blood by Pulse oximetry 2023-03-25 16:03:00 96 /min [facility] Systolic blood pressure 2022-02-01 21:21:00 138 mm[Hg] [facility] Diastolic blood pressure 2022-02-01 21:21:00 88 mm[Hg] [facility] Heart rate 2022-02-01 21:21:00 66 /min Un[facility] Body temperature 2022-02-01 21:21:00 37.61 Melisa [facility] Respiratory rate 2022-02-01 21:21:00 18 /min [facility] Oxygen saturation in Arterial blood by Pulse oximetry 2022-02-01 21:21:00 99 /min [facility] Body height 2022-01-27 14:45:00 160 cm [facility] Body weight 2022-01-27 14:45:00 79.379 kg [facility] BMI 2022-01-27 14:45:00 31.00 kg/m2 [facility] Systolic blood pressure 2022-01-31 16:27:00 129 mm[Hg] [facility] Diastolic blood pressure 2022-01-31 16:27:00 78 mm[Hg] [facility] Heart rate 2022-01-31 16:27:00 77 /min [facility] Body temperature 2022-01-31 16:27:00 36.61 Melisa [facility] Oxygen saturation in Arterial blood by Pulse oximetry 2022-01-31 16:27:00 100 /min [facility] Respiratory rate 2022-01-31 07:59:00 16 /min [facility] Body height 2022-01-27 14:45:00 160 cm [facility] Body weight 2022-01-27 14:45:00 79.379 kg [facility] BMI 2022-01-27 14:45:00 31.00 kg/m2 [facility] Procedures Procedure Date / Time Performed Performing Clinician Source US TRANSVAGINAL 2024-06-04 00:00:00 [facility] FLU VACC ([id number]), 6 MO-64 YRS, .5ML, IM, QUAD (FLUCELVAX) 2023-08-13 15:05:59 Caitlin Hinojosa [facility] REFERRAL- REQUEST/RESPONSE 2023-07-31 06:01:00 Doctor Unassigned, Kendrick [facility] MEDICAL RELEASE/CLEARANCE FORMS 2023-07-24 06:01:00 Doctor Unassigned, Kendrick [facility] CT HEAD WO CONTRAST 2023-07-12 19:20:11 Casey Santoro [facility] CT LOW DOSE LUNG NODULE 2023-07-12 19:19:56 Deanna Chang [facility] PULMONARY FUNCTION TEST (RESULTS) 2023-07-10 14:02:02 Feli Chang [facility] MEDICAL RELEASE/CLEARANCE FORMS 2023-06-10 05:01:00 Doctor Unassigned, Kendrick [facility] TRANSTHORACIC ECHO (TTE) COMPLETE 2023-05-27 20:39:00 Yvette Borja [facility] REFERRAL- REQUEST/RESPONSE 2023-05-24 05:01:00 Doctor Unassigned, Kendrick [facility] HB ECG ROUTINE & RHYTHM STRIP 2023-04-18 18:44:42 Yvette Borja [facility] AUTHORIZATION TO RELEASE PHI TO [facility] 2023-04-18 05:01:00 Doctor Unassigned, Kendrick [facility] CONSENT/REFUSAL FOR DIAGNOSIS AND TREATMENT 2023-03-25 15:27:16 Doctor Unassigned, Kendrick [facility] AUTHORIZATION FOR RELEASE OF PHI 2023-03-21 05:01:00 Doctor Unassigned, Kendrick [facility] EXTERNAL PROVIDER - ADC REFERRAL 2023-03-19 05:01:00 Doctor Unassigned, Kendrick [facility] REFERRAL- REQUEST/RESPONSE 2023-01-21 05:01:00 Doctor Unassigned, Kendrick [facility] AUTHORIZATION FOR RELEASE OF PHI 2022-03-13 05:01:00 Doctor Unassigned, Kendrick [facility] POCT GLUCOSE (AUTOMATED) 2022-02-01 21:23:00 Fotrunato Fischer [facility] POCT GLUCOSE (AUTOMATED) 2022-02-01 16:36:00 Fortunato Fischer [facility] POCT GLUCOSE (AUTOMATED) 2022-02-01 12:38:00 [facility] 2022-02-01 11:33:00 Donato Desir [facility] IRON PANEL 2022-02-01 11:33:00 Donato Desir [facility] POCT GLUCOSE (AUTOMATED) 2022-02-01 02:55:00 [facility]) 2022-02-01 01:54:00 [facility] ([facility]OMATED) 2022-01-31 22:20:00 [facility] POCT GLUCOSE (AUTOMATED) 2022-01-31 17:41:00 [facility] POCT GLUCOSE (AUTOMATED) 2022-01-31 13:02:00 [facility] POCT GLUCOSE (AUTOMATED) 2022-01-31 13:02:00 [facility] POCT GLUCOSE (AUTOMATED) 2022-01-31 01:50:00 [facility] POCT GLUCOSE (AUTOMATED) 2022-01-31 01:50:00 [facility] POCT GLUCOSE (AUTOMATED) 2022-01-30 22:49:00 [facility] POCT GLUCOSE (AUTOMATED) 2022-01-30 22:49:00 [facility] POCT GLUCOSE (AUTOMATED) 2022-01-30 18:02:00 [facility] POCT GLUCOSE (AUTOMATED) 2022-01-30 18:02:00 [facility] POCT GLUCOSE (AUTOMATED) 2022-01-30 13:16:00 [facility] POCT GLUCOSE (AUTOMATED) 2022-01-30 13:16:00 [facility] POCT GLUCOSE (AUTOMATED) 2022-01-30 02:17:00 [facility] POCT GLUCOSE (AUTOMATED) 2022-01-30 02:17:00 Fortunato Fischer [facility] POCT GLUCOSE (AUTOMATED) 2022-01-29 21:10:00 [facility] 2022-01-29 21:10:00 [facility] SPINAL LUMBAR PUNCTURE DIAGNOSTIC 2022-01-29 20:13:10 Jose L [facility] IR SPINAL LUMBAR PUNCTURE DIAGNOSTIC 2022-01-29 20:13:10 Jose L [facility] POCT GLUCOSE (AUTOMATED) 2022-01-29 17:11:00 [facility]OMATED) 2022-01-29 17:11:00 [facility] ([facility]OMATED) 2022-01-29 12:27:00 [facility]OMATED) 2022-01-29 12:27:00 [facility] WITH DIFF 2022-01-29 11:05:00 Criss Ibarra [facility] CBC WITH DIFF 2022-01-29 11:05:00 Criss Ibarra Ericka [facility] BASIC METABOLIC PANEL (NA, K, CL, CO2, GLUCOSE, BUN, CREATININE, CA) 2022-01-29 11:04:00 Nafisa Ibarra [facility] PROTHROMBIN TIME / INR 2022-01-29 11:04:00 Teresowo rth, [facility] ACTIVATED PARTIAL THRMPLAS PITER 2022-01-29 11:04:00 Nafisa Ibarra [facility] BASIC METABOLIC PANEL (NA, K, CL, CO2, GLUCOSE, BUN, CREATININE, CA) 2022-01-29 11:04:00 Nafisa Ibarra [facility] PROTHROMBIN TIME / INR 2022-01-29 11:04:00 Teresowo rth, Nafisa [facility] ACTIVATED PARTIAL THRMPLAS PITER 2022-01-29 11:04:00 Nafisa Ibarra Ericka [facility] POCT GLUCOSE (AUTOMATED) 2022-01-29 02:37:00 Fortunato Fischer [facility] POCT GLUCOSE (AUTOMATED) 2022-01-29 02:37:00 [facility]) 2022-01-28 21:16:00 [facility] ([facility]OMATED) 2022-01-28 21:16:00 [facility] POCT GLUCOSE (AUTOMATED) 2022-01-28 17:41:00 [facility] POCT GLUCOSE (AUTOMATED) 2022-01-28 17:41:00 Jorge [facility] CT ABDOMEN PELVIS W CONTRAST 2022-01-28 05:47:13 Karlee [facility] CT ABDOMEN PELVIS W CONTRAST 2022-01-28 05:47:13 Karlee [facility] POCT GLUCOSE (AUTOMATED) 2022-01-28 01:56:00 [facility] POCT GLUCOSE (AUTOMATED) 2022-01-28 01:56:00 [facility] LIPASE 2022-01-27 16:47:00 Aryan Fay [facility] COMP. METABOLIC PANEL (76060) 2022-01-27 16:47:00 Aryan Fay [facility] CBC WITH DIFF 2022-01-27 16:47:00 Aryan Fay [facility] CBC WITH DIFF 2022-01-27 16:47:00 Aryan Fay [facility] COMP. METABOLIC PANEL ([id number]) 2022-01-27 16:47:00 Aryan Fay [facility] LIPASE 2022-01-27 16:47:00 Aryan Fay [facility] CT HEAD WO CONTRAST 2022-01-27 16:23:00 Aryan Fay [facility] CT HEAD WO CONTRAST 2022-01-27 16:23:00 Aryan Fay [facility] XR SHUNT SERIES 2022-01-27 16:22:00 Aryan Fay [facility] XR SHUNT SERIES 2022-01-27 16:22:00 Aryan Fay [facility] POCT TEST 2022-01-27 16:05:00 Aryan Fay [facility] POCT TEST 2022-01-27 16:05:00 Aryan Fay [facility] URINALYSIS 2022-01-27 16:02:00 Aryan Fay [facility] URINALYSIS 2022-01-27 16:02:00 Aryan Fay [facility] COVID-19 (ID NOW RAPID TESTING) 2022-01-27 16:01:00 Aryan Fay [facility] LAB ONLY COVID INTERPRETATION 2022-01-27 16:01:00 Aryan Fay [facility] COVID-19 (ID NOW RAPID TESTING) 2022-01-27 16:01:00 Aryan Fay [facility] LAB ONLY COVID INTERPRETATION 2022-01-27 16:01:00 Ayran Fay [facility] NOTICE OF PRIVACY PRACTICES 2022-01-27 14:33:26 Doctor Unassigned, Kendrick [facility] NOTICE OF PRIVACY PRACTICES 2022-01-27 14:33:26 Doctor Unassigned, Kendrick [facility] CONSENT/REFUSAL FOR DIAGNOSIS AND TREATMENT 2022-01-27 14:30:23 Doctor Unassigned, Kendrick [facility] CONSENT/REFUSAL FOR DIAGNOSIS AND TREATMENT 2022-01-27 14:30:23 Doctor Unassigned, Kendrick [facility] HOSPITAL ADMISSION 2022-01-27 05:01:00 Doctor Un assigned, Kendrick [facility] HOSPITAL ADMISSION 2022-01-27 05:01:00 Doctor Un assigned, Kendrick [facility] Laparoscopic Sleeve Gastrectomy [facility] Encounters Start Date/Time End Date/Time Encounter Type Admission Type Attending [facility] Care Facility Care Department Encounter ID Source 2024-06-04 00:00:00 2024-06-04 00:00:00 ZARIA Bae: Wilma Daily, [address], [place] [address] , Ph. Critical access hospital - [id number] lew Fish* [id number] [facility] 2024-06-01 00:00:00 2024-06-01 13:46:33 Telephone Feli Chang [facility] [id number] 350.1.13.10 4.2.7.2.686 [id number] [facility] 2024-01-24 09:00:00 2024-01-24 09:00:00 [facility] [id number] [facility] 2024-01-16 00:00:00 2024-01-20 09:27:58 [facility] [id number] 350.1.13.10 4.2.7.2.686 [id number] [facility] 2023-12-26 15:00:00 2023-12-26 15:00:00 Outpatient TAINA RIVERA STRACTWillie [facility] [id number] [facility] 2023-11-27 14:00:00 2023-11-27 14:00:00 Outpatient TAINA RIVERA STRACTWillie [facility] [id number] [facility] 2023-10-21 13:40:00 2023-10-21 13:40:00 Outpatient ROBI CABEZAS HOWARD [facility] [id number] [facility] 2023-10-14 13:30:00 2023-10-14 13:30:00 Outpatient YVETTE ISBELL [facility] [id number] [facility] 2023-10-14 00:00:00 2023-10-14 00:00:00 Telephone Yvette Borja [facility] [id number] 350.1.13.10 4.2.7.2.686 [id number] [facility] 2023-10-09 11:20:41 2023-10-09 23:59:00 Outpatient R YVETTE BORJA [facility] [id number] [facility] 2023-10-09 11:20:41 2023-10-09 23:59:00 Hospital Encounter Yvette BorjaReggie [facility] [id number] 350.1.13.10 4.2.7.2.686 [id number] [facility] 2023-10-08 13:00:00 2023-10-08 13:00:00 Outpatient ROBI CABEZAS HOWARD [facility] [id number] [facility] 2023-10-02 13:30:00 2023-10-02 13:30:00 Outpatient R YVETTE BORJA [facility] [id number] [facility] 2023-10-01 10:00:00 2023-10-01 10:00:00 Outpatient R TAINA SHORT STRAHIL [facility] [id number] [facility] 2023-08-28 00:00:00 2023-08-28 00:00:00 Outpatient YVETTE ISBELL [facility] [id number] [facility] 2023-08-14 15:00:00 2023-08-14 15:00:00 Outpatient R TAINA SHORT STRAHIL [facility] [id number] [facility] 2023-08-13 09:00:00 2023-08-13 09:36:32 Outpatient FELI VALENCIA SHIWAN [facility] [id number] [facility] 2023-08-13 09:00:00 2023-08-13 09:36:32 Office Visit Feli Chang [facility] [id number] 350.1.13.10 4.2.7.2.686 [id number] [facility] 2023-08-01 13:30:00 2023-08-01 13:53:06 Outpatient R [facility] [id number] [facility] 2023-08-01 13:30:00 2023-08-01 13:53:06 Office Visit Yvette Borja [facility] 1.2840.114 350.1.13.10 4.2.7.2.686 [id number] [facility] 2023-07-31 00:00:00 2023-07-31 00:00:00 Orders Only Doctor Unassigned, Kendrick [facility] 1.2840.114 350.1.13.10 4.2.7.2.686 [id number] [facility] 2023-07-29 15:30:00 2023-07-29 15:30:00 Outpatient R YVETTE BORJA [facility] [id number] [facility] 2023-07-24 00:00:00 2023-07-24 00:00:00 Orders Only Doctor Unassigned, Kendrick [facility] 1.2840.114 350.1.13.10 4.2.7.2.686 [id number] [facility] 2023-07-19 00:00:00 2023-07-19 00:00:00 Telephone Yvette Borja [facility] [id number] 350.1.13.10 4.2.7.2.686 [id number] [facility] 2023-07-12 12:56:49 2023-07-12 23:59:00 Hospital Encounter Robi Santoro [facility] 1.2840.114 350.1.13.10 4.2.7.2.686 [id number] [facility] 2023-07-12 12:56:10 2023-07-12 23:59:00 Outpatient R FELI CHANG SHINDAaron [facility] [id number] [facility] 2023-07-12 12:56:10 2023-07-12 23:59:00 Hospital Encounter Feli Chang [facility] 1.2840.114 350.1.13.10 4.2.7.2.686 [id number] [facility] 2023-07-10 08:00:00 2023-07-10 09:33:33 Outpatient R FELI CHANG SHINDAaron [facility] [id number] [facility] 2023-07-10 08:00:00 2023-07-10 09:33:33 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, 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 Respiratory Feli Chang [facility] 1.840.114 350.1.13.10 4.2.7.2.686 [id number] [facility] 2023-07-10 00:00:00 2023-07-10 00:00:00 Orders Only Feli Chang [facility] 1.2840.114 350.1.13.10 4.2.7.2.686 [id number] [facility] 2023-06-10 14:00:00 2023-06-10 14:00:00 Outpatient R YVETTE BORJA [facility] [id number] [facility] 2023-06-10 00:00:00 2023-06-10 00:00:00 Orders Only Doctor Unassigned, Kendrick [facility] 1.2840.114 350.1.13.10 4.2.7.2.686 [id number] [facility] 2023-06-05 00:00:00 2023-06-05 00:00:00 Telephone Yvette Borja [facility] [id number] 350.1.13.10 4.2.7.2.686 [id number] [facility] 2023-05-28 12:20:00 2023-05-28 12:59:05 Outpatient R ROBI SANTORO HOWARD [facility] [id number] [facility] 2023-05-28 12:20:00 2023-05-28 12:59:05 Office Visit Robi Santoro [facility] [id number] 350.1.13.10 4.2.7.2.686 [id number] [facility] 2023-05-28 00:00:00 2023-05-28 00:00:00 Telephone Yvette Borja [facility] [id number] 350.1.13.10 4.2.7.2.686 [id number] [facility] 2023-05-27 15:36:48 2023-05-27 23:59:00 Hospital Encounter Yvette Borja [facility] 1.2.840.114 350.1.13.10 4.2.7.2.686 [id number] [facility] 2023-05-27 14:44:45 2023-05-27 15:35:00 Outpatient R YVETTE BORJA [facility] [id number] [facility] 2023-05-27 14:44:45 2023-05-27 15:35:00 Hospital Encounter Yvette Borja [facility] 1.2.840.114 350.1.13.10 4.2.7.2.686 [id number] [facility] 2023-05-24 00:00:00 2023-05-24 00:00:00 Orders Only Doctor Unassigned, Kendrick [facility] 1.2.840.114 350.1.13.10 4.2.7.2.686 [id number] [id number] [facility] 2023-05-24 00:00:00 2023-05-24 00:00:00 Telephone Robi Santoro [facility] 1..840.114 350.1.13.10 4.2.7.2.686 [id number] [facility] 2023-05-20 09:30:00 2023-05-20 09:30:00 Outpatient R [facility] [id number] [facility] 2023-05-13 00:00:00 2023-05-13 00:00:00 Telephone Yvette Borja [facility] 1..840.114 350.1.13.10 4.2.7.2.686 [id number] [facility] 2023-05-09 15:30:00 2023-05-09 15:30:00 Outpatient R YVETTE BORJA [facility] [id number] [facility] 2023-04-19 00:00:00 2023-04-19 00:00:00 Telephone Yvette Borja [facility] 1..840.114 350.1.13.10 4.2.7.2.686 [id number] [facility] 2023-04-18 13:30:00 2023-04-18 15:53:05 Outpatient R YVETTE BORJA [facility] [id number] [facility] 2023-04-18 13:30:00 2023-04-18 15:53:05 Office Visit Yvette Borja [facility] 1.2840.114 350.1.13.10 4.2.7.2.686 [id number] [facility] 2023-04-18 00:00:00 2023-04-18 00:00:00 Orders Only Doctor Unassigned, Kendrick [facility] 1.0.114 350.1.13.10 4.2.7.2.686 [id number] [facility] 2023-04-09 00:00:00 2023-04-09 00:00:00 Outpatient FELI VALENCIA SHINDAaron [facility] [id number] [facility] 2023-04-08 00:00:00 2023-04-08 00:00:00 Letter (Out) Ascencion Andreahomero [facility] 1.0.114 350.1.13.10 4.2.7.2.686 [id number] [facility] 2023-03-25 10:30:00 2023-03-25 11:18:14 Outpatient R FELI CHANG SHIWAN [facility] [id number] [facility] 2023-03-25 10:30:00 2023-03-25 11:18:14 Office Visit Feli Chang [facility] 1.840.114 350.1.13.10 4.2.7.2.686 [id number] [facility] 2023-03-25 00:00:00 2023-03-25 00:00:00 Orders Only Doctor Unassigned, Kendrick [facility] 1.2840.114 350.1.13.10 4.2.7.2.686 [id number] [facility] 2023-03-21 00:00:00 2023-03-21 00:00:00 Orders Only Doctor Unassigned, Kendrick [facility] 1.2.840.114 350.1.13.10 4.2.7.2.686 [id number] [id number] [facility] 2023-03-19 00:00:00 2023-03-19 00:00:00 Orders Only Doctor Unassigned, Kendrick [facility] 1.2.840.114 350.1.13.10 4.2.7.2.686 [id number] [facility] 2023-01-21 00:00:00 2023-01-21 00:00:00 Orders Only Doctor Unassigned, Kendrick [facility] 1.2.840.114 350.1.13.10 4.2.7.2.686 [id number] [facility] 2022-04-26 00:00:00 2022-04-26 00:00:00 Telephone Fortunato Fischer [facility] 1.2.840.114 350.1.13.10 4.2.7.2.686 [id number] [facility] 2022-03-13 00:00:00 2022-03-13 00:00:00 Orders Only Doctor Unassigned, Kendrick [facility] 1.2.840.114 350.1.13.10 4.2.7.2.686 [id number] [facility] 2022-02-02 00:00:00 2022-02-02 00:00:00 Transition of Care Yu Longoria 1.2.840.114 350.1.13.10 4.2.7.2.686 [id number] [facility] 2022-01-27 09:47:00 2022-02-01 19:29:00 Hospital Encounter Aryan Fay Joel [facility] 1.2.840.114 350.1.13.10 4.2.7.2.686 [id number] [facility] 2022-01-27 09:47:00 2022-02-01 19:29:00 Inpatient X [facility] [id number] [facility] 2022-01-27 00:00:00 2022-01-27 00:00:00 Travel 1.2.840.1 70473.1.1 3.104.2.7 [id number] .8 1.2.840.114 350.1.13.10 4.2.7.3.698 [id number] [facility] Results Test Description Test Time Test Comments Results Result Co mments Source [facility] MedicalPULMONARY FUNCTION TEST (RESULTS)2023-07-10 14:02:02* Test Item Value Reference Range Interpretation Comme nts FVC Actual (test code = 3994) 3.47 L FEV1 Actual (test code = 3993) 2.63 L FEV1/FVC Actual (test code = 3995) 76 % [facility] 01:18:38* Test Item Value Reference Range Interpretation Comme nts Height (test code = 0233976083) 63 in Weight (test code = 2729169880) 176 lbs Systolic BP (test code = 1697733390) 132 mmHg Diastolic BP (test code = 2694292674) 68 mmHg Heart Rate (test code = 3308781564) 79 bpm MR max PG (test code = 7905919670) 102.70 mm[Hg] MR max lalo (test code = 2016144031) 506.60 cm/s Ao root diam (test code = 9770789014) 3.20 cm Mr max lalo (test code = 9530289174) 506.6 m/s Aortic root (test code = 7551272547) 3.2 cm Ao root annulus (test code = 1041168192) 3.2 cm BSA (test code = 4891445753) 1.83 m2 LVOT diameter (test code = 5567434608) 1.90 cm LVOT area (test code = 5744791015) 2.80 cm2 LA size (test code = 1313096597) 3.5 cm ACS (test code = 6969778019) 1.87 cm PV PEAK VELOCITY (test code = 2481799973) 108.5 cm/s PV peak gradient (test code = 3865353745) 4.7 mmHg LVIDD (test code = 1545603015) 4.40 cm Left Ventricular End Diastolic Volume by Teichholz Method (test code = 1643810) 87.8 mL IVS (test code = 2877774872) 1.12 cm Interventricular Septum Diastolic Thickness by 2D (test code = 4826123) 1.12 cm LVPWD (test code = 9589348816) 1.11 cm PW (test code = 9168996889) 1.11 cm 0.6-1.1 EF(Teich) (test code = 6963327854) 55.80 % LVIDS (test code = 4470907339) 3.10 cm Left Ventricular End Systolic Volume by Teichholz Method (test code = 7939774) 38.8 mL FS (test code = 8666518374) 29 % EF - 2D (test code = 31739368) 55.80 % LAV(MOD-sp4) (test code = 8456241288) 36.80 mL MV E-F slope (test code = 0204318871) 36.90 cm/s MV Peak E Lalo (test code = 3607683956) 110.0 cm/s MV valve area p 1/2 method (test code = 8227357286) 2.41 cm2 MV dec slope (test code = 5521438270) 348.60 cm/s2 MV P1/2t max lalo (test code = 5553164924) 108.50 cm/s MV Peak A Lalo (test code = 2367008196) 96.9 cm/s E/A ratio (test code = 4327227106) 1.14 ratio LVOT stroke volume (test code = 0529623618) 98.50 cm3 LVOT peak laol (test code = 1832908034) 160.4 cm/s LVOT mn grad (test code = 4661237939) 4.9 mmHg AV LVOT peak gradient (test code = 7610872766) 10.3 mmHg LVOT peak VTI (test code = 6413428192) 34.7 cm LV V1 mean (test code = 8257562752) 101.80 cm/s Aortic valve mean velocity (test code = 8205226828) 122.0 cm/s Ao peak lalo (test code = 4386999025) 200.5 cm/s Ao VTI (test code = 0443867538) 40.9 cm AV area by cont VTI (test code = 2204623184) 2.4 cm2 AV area peak lalo (test code = 8150681533) 2.3 cm2 Ao max PG (test code = 4066032734) 16.10 mm[Hg] AV peak gradient (test code = 8237139926) 16.1 mmHg AV valve area (test code = 3762648794) 2.41 cm2 AV mean gradient (test code = 0617337839) 7.0 mmHg TR Peak Lalo (test code = 5670771952) 227.8 cm/s Triscuspid Valve Regurgitation Peak Gradient (test code = 8713504109) 20.8 mmHg LA Volume Index (BP) (test code = 2386967933) 23.2 mL/m2 LA volume (BP) (test code = 3897565329) 42.4 mL LAV(MOD-sp2) (test code = 1623912128) 42.40 mL Radiology Study observation (narrative) (test code = 33168-7) KEE (test code = KEE) ?Left?Ventricle: Left ventricle size is normal. Normal wall thickness. Normal wall motion. Normal systolic function with a visually estimated EF of 60 - 65%. ?Tricuspid?Valve: Trace transvalvular regurgitation. Insufficient tricuspid regurgitation jet to estimate RVSP . ?RA pressure is 0-5 mmHg. Left VentricleLeft ventricle size is normal. Normal wall thickness. Normal wall motion. Normal systolic function with a visually estimated EF of 60 - 65%.Right VentricleRight ventricle size is normal. Normal systolic function.Left AtriumLeft atrium size is normal.Right AtriumRight atrium size is normal.IVC/SVCRA pressure is 0-5 mmHg.Mitral ValveMildly thickened leaflets. Trace transvalvular regurgitation.Tricusp id ValveTricuspid valve structure is normal. Trace transvalvular regurgitation. Insufficient tricuspid regurgitation jet to estimate RVSP . RA pressure is 0-5 mmHg.Aortic ValveAortic valve opens well.Pulmonic ValvePulmonic valve is grossly normal in structure and function. Trace transvalvular regurgitation.Ascendi ng AortaNormal sized aortic root.PericardiumNo pericardial effusion.Study DetailsStudy quality experienced technical difficulty. A complete echocardiogram was performed using 2D, color flow Doppler and spectral Doppler. [facility] GLUCOSE (AUTOMATED)2022-02-01 21:24:06* Test Item Value Reference Range Interpretation Comme nts POCT GLU (test code = 5362958809) 172 mg/dL 70-110 H Lab Interpretation (test cod e = 27518-0) Abnormal [facility] GLUCOSE (AUTOMATED)2022-02-01 16:37:31* Test Item Value Reference Range Interpretation Comme nts POCT GLU (test code = 9727847116) 289 mg/dL 70-110 H Lab Interpretation (test cod e = 99977-0) [facility] [id number] 14:09:40* Test Item Value Reference Range Interpretation Comme nts FERRITIN (test code = 5017584798) 11.3 ng/mL 6.0-137.0 KEE (test code = KEE) Biotin has been reported to cause a negative bias, interpret results relative to patient's use of biotin. Lab Interpretation (test code = 13184-8) Normal [facility] [id number] 13:42:20* Test Item Value Reference Range Interpretation Comme nts IRON (test code = 7183546970) 39 ug/dL 50-160 L TIBC (test code = 9992352925) 515 ug/dL 250-410 H % FE SAT (test code = 5325048128) 8 % 20-50 L Lab Interpretation (test cod e = 87925-7) Abnormal [facility] GLUCOSE (AUTOMATED)2022-02-01 12:38:56* Test Item Value Reference Range Interpretation Comme nts POCT GLU (test code = 7350229737) 187 mg/dL 70-110 H Lab Interpretation (test cod e = 98149-5) Abnormal [facility] GLUCOSE (AUTOMATED)2022-02-01 02:56:29* Test Item Value Reference Range Interpretation Comme nts POCT GLU (test code = 4775885711) 230 mg/dL 70-110 H Lab Interpretation (test cod e = 19264-0) [facility] 02:11:37* Test Item Value Reference Range Interpretation Comme nts POCT GLU (test code = 0584133518) 235 mg/dL 70-110 H Lab Interpretation (test cod e = 32395-8) [facility]22-01-31 22:22:00* Test Item Value Reference Range Interpretation Comme nts POCT GLU (test code = 6328528557) 159 mg/dL 70-110 H Notified Provide r Lab Interpretation (test code = 57723-1) [facility] 17:42:16* Test Item Value Reference Range Interpretation Comme nts POCT GLU (test code = 3475141019) 249 mg/dL 70-110 H Notified Provide r Lab Interpretation (test code = 37034-2) Abnormal [facility] GLUCOSE (AUTOMATED)2022-01-31 13:03:21* Test Item Value Reference Range Interpretation Comme nts POCT GLU (test code = 2794687377) 142 mg/dL 70-110 H Notified Provide r Lab Interpretation (test code = 54237-0) [facility]2022-[facility]-31 13:03:21* Test Item Value Reference Range Interpretation Comme nts POCT GLU (test code = 3552279328) 142 mg/dL 70-110 H Notified Provide r Lab Interpretation (test code = 95451-3) [facility]2022-[facility]-31 01:51:49* Test Item Value Reference Range Interpretation Comme nts POCT GLU (test code = 0399239697) 183 mg/dL 70-110 H Lab Interpretation (test cod e = 64402-0) [facility]2022-01-30 22:53:01* Test Item Value Reference Range Interpretation Comme nts POCT GLU (test code = 9565044891) 251 mg/dL 70-110 H Lab Interpretation (test cod e = 40809-1) [facility]22-[facility]-30 18:02:53* Test Item Value Reference Range Interpretation Comme nts POCT GLU (test code = 0222483054) 269 mg/dL 70-110 H Lab Interpretation (test cod e = 72457-6) Abnormal [facility] GLUCOSE (AUTOMATED)2022-01-30 13:17:23* Test Item Value Reference Range Interpretation Comme nts POCT GLU (test code = 2416418442) 267 mg/dL 70-110 H Lab Interpretation (test cod e = 54866-8) Abnormal [facility] GLUCOSE (AUTOMATED)2022-01-30 02:19:06* Test Item Value Reference Range Interpretation Comme nts POCT GLU (test code = 1203588956) 176 mg/dL 70-110 H Lab Interpretation (test cod e = 79385-6) Abnormal [facility] GLUCOSE (AUTOMATED)2022-01-29 21:11:48* Test Item Value Reference Range Interpretation Comme nts POCT GLU (test code = 4491333518) 140 mg/dL 70-110 H Lab Interpretation (test cod e = 34611-6) Abnormal [facility] GLUCOSE (AUTOMATED)2022-01-29 17:12:44* Test Item Value Reference Range Interpretation Comme nts POCT GLU (test code = 0493300247) 146 mg/dL 70-110 H Lab Interpretation (test cod e = 40391-2) Abnormal [facility] GLUCOSE (AUTOMATED)2022-01-29 12:29:40* Test Item Value Reference Range Interpretation Comme nts POCT GLU (test code = 8187437780) 209 mg/dL 70-110 H Lab Interpretation (test cod e = 97941-0) [facility]normal [facility] / [id number] 11:48:25* Test Item Value Reference Range Interpretation Comme nts PROTIME PATIENT (test code = 5964-2) See_Comment H [Automated messa ge] The system which generated this result transmitted reference range: 10.1 - 12.6 Seconds. The reference range was not used to interpret this result as normal/abnormal. INR (test code = 6301-6) Normal INR <1.1; Warfarin Therapeutic range 2.0 to 3.0 or 2.5 to 3.5, depending upon the indications. Lab Interpretation (test code = 14770-1) [facility]normal [facility] [id number] 11:48:25* Test Item Value Reference Range Interpretation Comme nts APTT Patient (test code = 3173-2) See_Comment [Automated messa ge] The system which generated this result transmitted reference range: 26 - 36 Seconds. The reference range was not used to interpret this result as normal/abnormal. Lab Interpretation (test code = 50439-8) Normal [facility] / [id number] 11:48:25* Test Item Value Reference Range Interpretation Comme [facility] PROTIME PATIENT (test code = 5964-2) See_Comment H [Automated messa ge] The system which generated this result transmitted reference range: 10.1 - 12.6 Seconds. The reference range was not used to interpret this result as normal/abnormal. INR (test code = 6301-6) Normal INR <1.1; Warfarin Therapeutic range 2.0 to 3.0 or 2.5 to 3.5, depending upon the indications. Lab Interpretation (test code = 28349-7) [facility]normal [facility] [id number] 11:48:25* Test Item Value Reference Range Interpretation Comme [facility] APTT Patient (test code = 3173-2) See_Comment [Automated messa ge] The system which generated this result transmitted reference range: 26 - 36 Seconds. The reference range was not used to interpret this result as normal/abnormal. Lab Interpretation (test code = 41689-1) Normal [facility] PAN[facility] (NA, K, CL, CO2, GLUCOSE, BUN, CREATININE, CA)2022-01-29 11:34:06* Test Item Value Reference Range Interpretation Comme nts NA (test code = 7420108987) 139 mmol/L 135-145 K (test code = 7747210882) 3.8 mmol/L 3.5-5.0 CL (test code = 3890165656) 113 mmol/L 98-108 H CO2 TOTAL (test code = 2365451459) 20 mmol/L 23-31 L AGAP (test code = 7349125405) 2-16 BUN (test code = 0448191591) 10 mg/dL 7-23 GLUCOSE (test code = 3586750235) 159 mg/dL 70-110 H CREATININE (test code = 9792279806) 0.84 mg/dL 0.50-1.04 CALCIUM (test code = 8681193772) 8.7 mg/dL 8.6-10.6 eGFR (test code = 2190229639) mL/min/1.73m2 KEE (test code = KEE) Association of Glomerular Filtration Rate (GFR) and Staging of Kidney Disease* + --+ --+ ------+| GFR (mL/min/1.73 m2) ?| With Kidney Damage ?| ?Without Kidney Damage+ --------+ --------+ +| ?>90 ?| ?Stage one ?| ? Normal ?+ ---+ ---+ -------+| ?60-89 ?| ?Stage two ?| ? Decreased GFR ? + --+ --+ ------+| ?30-59 ?| ?Stage three ?| ? Stage three ? + --+ --+ ------+| ?15-29 ?| ?Stage four ? | ? Stage four ?+ ---+ ---+ -------+| ?<15 (or dialysis) ? ?| ?Stage five ? | ? Stage five ?+ ---+ ---+ -------+ *Each stage assumes the associated GFR level has been in effect for at least three months. ?Stages 1 to 5, with or without kidney disease, indicate chronic kidney disease. Notes: Determination of stages one and two (with eGFR >59mL/min/1.73 m2) requires estimation of kidney damage for at least three months as defined by structural or functional abnormalities of the kidney, manifested by either:Pathological abnormalities or Markers of kidney damage (including abnormalities in the composition of the blood or urine or abnormalities in imaging tests). Lab Interpretation (test code = 72803-4) Abnormal [facility] METABOLIC PANEL (NA, K, CL, CO2, GLUCOSE, BUN, CREATININE, CA)2022-01-29 11:34:06* Test Item Value Reference Range Interpretation Comme nts NA (test code = 7688132676) 139 mmol/L 135-145 K (test code = 5212448415) 3.8 mmol/L 3.5-5.0 CL (test code = 2643370817) 113 mmol/L 98-108 H CO2 TOTAL (test code = 8105851074) 20 mmol/L 23-31 L AGAP (test code = 3067332219) 2-16 BUN (test code = 8078535351) 10 mg/dL 7-23 GLUCOSE (test code = 2733594683) 159 mg/dL 70-110 H CREATININE (test code = 6132802372) 0.84 mg/dL 0.50-1.04 CALCIUM (test code = 8886603211) 8.7 mg/dL 8.6-10.6 eGFR (test code = 4378539385) mL/min/1.73m2 KEE (test code = KEE) Association of Glomerular Filtration Rate (GFR) and Staging of Kidney Disease* + --+ --+ ------+| GFR (mL/min/1.73 m2) ?| With Kidney Damage ?| ?Without Kidney Damage+ --------+ --------+ +| ?>90 ?| ?Stage one ?| ? Normal ?+ ---+ ---+ -------+| ?60-89 ?| ?Stage two ?| ? Decreased GFR ? + --+ --+ ------+| ?30-59 ?| ?Stage three ?| ? Stage three ? + --+ --+ ------+| ?15-29 ?| ?Stage four ? | ? Stage four ?+ ---+ ---+ -------+| ?<15 (or dialysis) ? ?| ?Stage five ? | ? Stage five ?+ ---+ ---+ -------+ *Each stage assumes the associated GFR level has been in effect for at least three months. ?Stages 1 to 5, with or without kidney disease, indicate chronic kidney disease. Notes: Determination of stages one and two (with eGFR >59mL/min/1.73 m2) requires estimation of kidney damage for at least three months as defined by structural or functional abnormalities of the kidney, manifested by either:Pathological abnormalities or Markers of kidney damage (including abnormalities in the composition of the blood or urine or abnormalities in imaging tests). Lab Interpretation (test code = 03825-5) Abnormal [facility] WITH [id number] 11:27:43* Test Item Value Reference Range Interpretation Comme nts WBC (test code = 6690-2) See_Comment [Automated messa ge] The system which generated this result transmitted reference range: 4.30 - 11.10 10*3/?L. The reference range was not used to interpret this result as normal/abnormal. RBC (test code = 789-8) See_Comment [Automated messa ge] The system which generated this result transmitted reference range: 3.93 - 5.25 10*6/?L. The reference range was not used to interpret this result as normal/abnormal. HGB (test code = 718-7) 10.8 g/dL 11.6-15.0 L HCT (test code = 4544-3) 33.7 % 35.7-45.2 L MCV (test code = 787-2) 79.3 fL 80.6-95.5 L MCH (test code = 785-6) 25.4 pg 25.9-32.8 L MCHC (test code = 786-4) 32.0 g/dL 31.6-35.1 RDW-SD (test code = 21007-8) 39.8 fL 39.0-49.9 RDW-CV (test code = 788-0) 14.0 % 12.0-15.5 PLT (test code = 777-3) See_Comment [Automated AudioBoo[employer] ge] The system which generated this result transmitted reference range: 166 - 358 10*3/?L. The reference range was not used to interpret this result as normal/abnormal. MPV (test code = 06315-9) 9.6 fL 9.5-12.9 NRBC/100 WBC (test code = 9013994044) See_Comment [Automated [employer] ssage] The system which generated this result transmitted reference range: 0.0 - 10.0 /100 WBCs. The reference range was not used to interpret this result as normal/abnormal. NRBC x10^3 (test code = 7430708811) <0.01 See_Comment [Automated AudioBooa ge] The system which generated this result transmitted reference range: 10*3/?L. The reference range was not used to interpret this result as normal/abnormal. GRAN MAT (NEUT) % (test code = 770-8) 43.9 % IMM GRAN % (test code = 1241027583) 0.30 % LYMPH % (test code = 736-9) 43.5 % MONO % (test code = 5905-5) 7.3 % EOS % (test code = 713-8) 4.3 % BASO % (test code = 706-2) 0.7 % GRAN MAT x10^3(ANC) (test code = 6942194676) 2.65 10*3/uL 1.88-7.09 IMM GRAN x10^3 (test code = 0075070019) <0.03 0.00-0.06 LYMPH x10^3 (test code = 731-0) 2.63 10*3/uL 1.32-3.29 MONO x10^3 (test code = 742-7) 0.44 10*3/uL 0.33-0.92 EOS x10^3 (test code = 711-2) 0.26 10*3/uL 0.03-0.39 BASO x10^3 (test code = 704-7) 0.04 10*3/uL 0.01-0.07 Lab Interpretation (test code = 73073-7) Abnormal [facility] WITH [id number] 11:27:43* Test Item Value Reference Range Interpretation Comme nts WBC (test code = 6690-2) See_Comment [Automated [employer]™] The system which generated this result transmitted reference range: 4.30 - 11.10 10*3/?L. The reference range was not used to interpret this result as normal/abnormal. RBC (test code = 789-8) See_Comment [Automated [employer]] The system which generated this result transmitted reference range: 3.93 - 5.25 10*6/?L. The reference range was not used to interpret this result as normal/abnormal. HGB (test code = 718-7) 10.8 g/dL 11.6-15.0 L HCT (test code = 4544-3) 33.7 % 35.7-45.2 L MCV (test code = 787-2) 79.3 fL 80.6-95.5 L MCH (test code = 785-6) 25.4 pg 25.9-32.8 L MCHC (test code = 786-4) 32.0 g/dL 31.6-35.1 RDW-SD (test code = 33371-6) 39.8 fL 39.0-49.9 RDW-CV (test code = 788-0) 14.0 % 12.0-15.5 PLT (test code = 777-3) See_Comment [Automated messa ge] The system which generated this result transmitted reference range: 166 - 358 10*3/?L. The reference range was not used to interpret this result as normal/abnormal. MPV (test code = 84287-3) 9.6 fL 9.5-12.9 NRBC/100 WBC (test code = 7528385463) See_Comment [Automated [employer] ssage] The system which generated this result transmitted reference range: 0.0 - 10.0 /100 WBCs. The reference range was not used to interpret this result as normal/abnormal. NRBC x10^3 (test code = 6353021860) <0.01 See_Comment [Automated messa ge] The system which generated this result transmitted reference range: 10*3/?L. The reference range was not used to interpret this result as normal/abnormal. GRAN MAT (NEUT) % (test code = 770-8) 43.9 % IMM GRAN % (test code = 9557558447) 0.30 % LYMPH % (test code = 736-9) 43.5 % MONO % (test code = 5905-5) 7.3 % EOS % (test code = 713-8) 4.3 % BASO % (test code = 706-2) 0.7 % GRAN MAT x10^3(ANC) (test code = 5705725323) 2.65 10*3/uL 1.88-7.09 IMM GRAN x10^3 (test code = 0291538356) <0.03 0.00-0.06 LYMPH x10^3 (test code = 731-0) 2.63 10*3/uL 1.32-3.29 MONO x10^3 (test code = 742-7) 0.44 10*3/uL 0.33-0.92 EOS x10^3 (test code = 711-2) 0.26 10*3/uL 0.03-0.39 BASO x10^3 (test code = 704-7) 0.04 10*3/uL 0.01-0.07 Lab Interpretation (test code = 36687-9) Abnormal [facility] GLUCOSE (AUTOMATED)2022-01-29 02:38:57* Test Item Value Reference Range Interpretation Comme nts POCT GLU (test code = 7516780192) 148 mg/dL 70-110 H Lab Interpretation (test cod e = 26400-3) Abnormal [facility] GLUCOSE (AUTOMATED)2022-01-28 21:17:35* Test Item Value Reference Range Interpretation Comme nts POCT GLU (test code = 4880157149) 220 mg/dL 70-110 H Lab Interpretation (test cod e = 99864-3) Abnormal [facility] GLUCOSE (AUTOMATED)2022-01-28 17:43:14* Test Item Value Reference Range Interpretation Comme nts POCT GLU (test code = 4055088306) 274 mg/dL 70-110 H Lab Interpretation (test cod e = 75615-2) Abnormal [facility] GLUCOSE (AUTOMATED)2022-01-28 01:58:00* Test Item Value Reference Range Interpretation Comme nts POCT GLU (test code = 2710744615) 300 mg/dL 70-110 H Lab Interpretation (test cod e = 71834-3) Abnormal [facility]. METABOLIC PANEL (25360)2022-01-27 17:25:59* Test Item Value Reference Range Interpretation Comme nts NA (test code = 0534910329) 139 mmol/L 135-145 K (test code = 0004794265) 4.4 mmol/L 3.5-5.0 CL (test code = 7607392099) 109 mmol/L 98-108 H CO2 TOTAL (test code = 6789872952) 17 mmol/L 23-31 L AGAP (test code = 1699542954) 2-16 BUN (test code = 5650718543) 11 mg/dL 7-23 GLUCOSE (test code = 9384706246) 189 mg/dL 70-110 H CREATININE (test code = 2630962293) 0.68 mg/dL 0.50-1.04 TOTAL BILI (test code = 0342484385) 0.6 mg/dL 0.1-1.1 CALCIUM (test code = 6127951291) 8.9 mg/dL 8.6-10.6 T PROTEIN (test code = 2848939485) 7.1 g/dL 6.3-8.2 ALBUMIN (test code = 9744107031) 4.3 g/dL 3.5-5.0 ALK PHOS (test code = 3888785463) 75 U/L 34-122 ALTv (test code = 1742-6) 19 U/L 5-35 AST(SGOT) (test code = 6633787710) 19 U/L 13-40 eGFR (test code = 0970890086) mL/min/1.73m2 KEE (test code = KEE) Association of Glomerular Filtration Rate (GFR) and Staging of Kidney Disease* + --+ --+ ------+| GFR (mL/min/1.73 m2) ?| With Kidney Damage ?| ?Without Kidney Damage+ --------+ --------+ +| ?>90 ?| ?Stage one ?| ? Normal ?+ ---+ ---+ -------+| ?60-89 ?| ?Stage two ?| ? Decreased GFR ? + --+ --+ ------+| ?30-59 ?| ?Stage three ?| ? Stage three ? + --+ --+ ------+| ?15-29 ?| ?Stage four ? | ? Stage four ?+ ---+ ---+ -------+| ?<15 (or dialysis) ? ?| ?Stage five ? | ? Stage five ?+ ---+ ---+ -------+ *Each stage assumes the associated GFR level has been in effect for at least three months. ?Stages 1 to 5, with or without kidney disease, indicate chronic kidney disease. Notes: Determination of stages one and two (with eGFR >59mL/min/1.73 m2) requires estimation of kidney damage for at least three months as defined by structural or functional abnormalities of the kidney, manifested by either:Pathological abnormalities or Markers of kidney damage (including abnormalities in the composition of the blood or urine or abnormalities in imaging tests). Lab Interpretation (test code = 41751-0) Abnormal [facility]. METABOLIC PANEL (56175)2022-01-27 17:25:59* Test Item Value Reference Range Interpretation Comme nts NA (test code = 7935420921) 139 mmol/L 135-145 K (test code = 8161032298) 4.4 mmol/L 3.5-5.0 CL (test code = 2943590866) 109 mmol/L 98-108 H CO2 TOTAL (test code = 6190568990) 17 mmol/L 23-31 L AGAP (test code = 7439098088) 2-16 BUN (test code = 0505219519) 11 mg/dL 7-23 GLUCOSE (test code = 3103663956) 189 mg/dL 70-110 H CREATININE (test code = 1003260364) 0.68 mg/dL 0.50-1.04 TOTAL BILI (test code = 0542895050) 0.6 mg/dL 0.1-1.1 CALCIUM (test code = 4823084527) 8.9 mg/dL 8.6-10.6 T PROTEIN (test code = 1450369032) 7.1 g/dL 6.3-8.2 ALBUMIN (test code = 2096830546) 4.3 g/dL 3.5-5.0 ALK PHOS (test code = 2281919830) 75 U/L 34-122 ALTv (test code = 1742-6) 19 U/L 5-35 AST(SGOT) (test code = 8920334899) 19 U/L 13-40 eGFR (test code = 8347121785) mL/min/1.73m2 KEE (test code = KEE) Association of Glomerular Filtration Rate (GFR) and Staging of Kidney Disease* + --+ --+ ------+| GFR (mL/min/1.73 m2) ?| With Kidney Damage ?| ?Without Kidney Damage+ --------+ --------+ +| ?>90 ?| ?Stage one ?| ? Normal ?+ ---+ ---+ -------+| ?60-89 ?| ?Stage two ?| ? Decreased GFR ? + --+ --+ ------+| ?30-59 ?| ?Stage three ?| ? Stage three ? + --+ --+ ------+| ?15-29 ?| ?Stage four ? | ? Stage four ?+ ---+ ---+ -------+| ?<15 (or dialysis) ? ?| ?Stage five ? | ? Stage five ?+ ---+ ---+ -------+ *Each stage assumes the associated GFR level has been in effect for at least three months. ?Stages 1 to 5, with or without kidney disease, indicate chronic kidney disease. Notes: Determination of stages one and two (with eGFR >59mL/min/1.73 m2) requires estimation of kidney damage for at least three months as defined by structural or functional abnormalities of the kidney, manifested by either:Pathological abnormalities or Markers of kidney damage (including abnormalities in the composition of the blood or urine or abnormalities in imaging tests). Lab Interpretation (test code = 39589-7) [facility] Test Item Value Reference Range Interpretation Comme nts LIPASE (test code = 8569738678) 233 U/L 0-220 H Lab Interpretation (test cod e = 95836-0) [facility] 17[facility]25:44* Test Item Value Reference Range Interpretation Comme nts LIPASE (test code = 1424651610) 233 U/L 0-220 H Lab Interpretation (test cod e = 04588-7) [facility] [id number] 17:07:00* Test Item Value Reference Range Interpretation Comme nts WBC (test code = 6690-2) See_Comment [Automated [employer]] The system which generated this result transmitted reference range: 4.30 - 11.10 10*3/?L. The reference range was not used to interpret this result as normal/abnormal. RBC (test code = 789-8) See_Comment [Automated [employer]] The system which generated this result transmitted reference range: 3.93 - 5.25 10*6/?L. The reference range was not used to interpret this result as normal/abnormal. HGB (test code = 718-7) 12.6 g/dL 11.6-15.0 HCT (test code = 4544-3) 38.8 % 35.7-45.2 MCV (test code = 787-2) 79.5 fL 80.6-95.5 L MCH (test code = 785-6) 25.8 pg 25.9-32.8 L MCHC (test code = 786-4) 32.5 g/dL 31.6-35.1 RDW-SD (test code = 80107-9) 39.9 fL 39.0-49.9 RDW-CV (test code = 788-0) 13.8 % 12.0-15.5 PLT (test code = 777-3) See_Comment [Automated messa ge] The system which generated this result transmitted reference range: 166 - 358 10*3/?L. The reference range was not used to interpret this result as normal/abnormal. MPV (test code = 32536-6) 9.7 fL 9.5-12.9 NRBC/100 WBC (test code = 5333121981) See_Comment [Automated [employer] ssage] The system which generated this result transmitted reference range: 0.0 - 10.0 /100 WBCs. The reference range was not used to interpret this result as normal/abnormal. NRBC x10^3 (test code = 3457583237) <0.01 See_Comment [Automated messa ge] The system which generated this result transmitted reference range: 10*3/?L. The reference range was not used to interpret this result as normal/abnormal. GRAN MAT (NEUT) % (test code = 770-8) 58.1 % IMM GRAN % (test code = 8031922613) 0.40 % LYMPH % (test code = 736-9) 32.3 % MONO % (test code = 5905-5) 6.4 % EOS % (test code = 713-8) 1.9 % BASO % (test code = 706-2) 0.9 % GRAN MAT x10^3(ANC) (test code = 3879725730) 4.62 10*3/uL 1.88-7.09 IMM GRAN x10^3 (test code = 9662989219) 0.03 10*3/uL 0.00-0.06 LYMPH x10^3 (test code = 731-0) 2.57 10*3/uL 1.32-3.29 MONO x10^3 (test code = 742-7) 0.51 10*3/uL 0.33-0.92 EOS x10^3 (test code = 711-2) 0.15 10*3/uL 0.03-0.39 BASO x10^3 (test code = 704-7) 0.07 10*3/uL 0.01-0.07 Lab Interpretation (test code = 86368-4) [id number] 16:05:00* Test Item Value Reference Range Interpretation Comme nts POCT PREG (test code = 1605) negative On board controls acceptable with C Line (test code = 3574) present POCT PREG LOT # (test code = 3575) [id number] POCT PREG TEST DATE ( test code = 3576) 05/11/2023 Lab Interpretation (test cod e = 44893-4) Normal [facility] [id number] 16:05:00* Test Item Value Reference Range Interpretation Comme nts POCT PREG (test code = 1605) negative On board controls acceptable with C Line (test code = 3574) present POCT PREG LOT # (test code = 3575) [id number] POCT PREG TEST DATE ( test code = 3576) 05/11/2023 Lab Interpretation (test cod e = 40083-5) Normal [facility] Notes Date/Time Note Provider Source 2024-06-01 13:46:13 Patient notified. She will schedule prior to f/u with Dr. Chang [facility] 2024-06-01 13:00:[address] Order for CT scan placed. Thanks. [facility] 2024-06-01 10:36:03 Patient calling because she wanted to see if Dr. Chang would place orders for the repeat CT scan to f/u on lung nodule prior to her appointment. She last saw Dr. Chang in Aug 2023, planning to f/u in July 2024. She states that she prefers to have the scan completed prior to the office visit so that she can go over results in person at the appointment. She also reports that she still has dyspnea with exertion. She states even taking a shower and getting dressed can make her feel out of breath. The shortness of breath is associated with chest tightness but denies pain or wheezing. She has been off of Advair/albuterol due to not having any refills. Will send to pharmacy and advised patient to restart, previously the inhalers had been helping to control her symptoms. Patient also reports that recently she had an episode of chest pain for which she had to call 911. She reports that work up in the ER did not reveal any concerning findings. She also reports that previous cardiac work up was negative. Patient was offered sooner appointment but prefers to keep in July due to financial reasons. ER precautions discussed. Patient verbalized understanding. [facility] 2024-01-20 09:27:[address] Chang's recommendations. She verbalized understanding. [facility] Arina Shook RN [facility] 2024-01-17 13:59:07 I apologize there may have been some miscommunication on my part, she had a CT scan on 07/12/2023, everything looked okay, very tiny lung nodule, would recommend consider a repeat CT scan in one year (07/2024). We can discuss further at clinic. Thanks [facility] 2024-01-16 12:43:19 Copied from [facility] #[id number]. Topic: Appointment - Appointment Request >> Jan 16, 2024 12:42 PM Patient Cover Operator wrote: Shelby Arias is a 48 year old female Pt is saying Dr Chang wanted her to get another ct done before her upcoming appt with him on 01/23. Do not see any orders for ct. Please advise Melina Osorio [facility] 2023-10-17 08:59:18 Attempted to contact patient with results/recommendations. She has already viewed her normal results on My Chart. LVM for patient to return call to [phone] if she has any questions. Cardiac CTA shows calcium score 0.2 Left main normal LAD normal Ramus branch no significant disease noted Circumflex shows no atherosclerotic disease RCA shows no atherosclerotic disease. Cardiac CTA within normal limits. Recommend to discuss with PCP for noncardiac evaluation for chest pain. 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 Patient had viewed the results on [facility] called to see if she had further questions LVM with office number and will also try back at a later time Yvette Borja MD P Cardiology Nurse Cardiac CTA shows calcium score 0.2 Left main normal LAD normal Ramus branch no significant disease noted Circumflex shows no atherosclerotic disease RCA shows no atherosclerotic disease. Cardiac CTA within normal limits. Recommend to discuss with PCP for noncardiac evaluation for chest pain. Y INTERVENTION SCHOOL PSYCHOLOGIST Nafisa Márquez MA [facility] 2023-10-09 13:00:00 Nursing Documentation for Cardiac Coronary CT A Patient Shelby Arias is here on 10/09/[address] Diagnosis is chest pain. Patient states no caffeine in 24 hours Initial VS taken at 1218 B/P 142/85, HR 71, Respirations 22, Sats 99. A 20 gauge IV was placed in right forearm. Per outpatient cardiac coronary CT protocol, Metoprolol 100 mg po was given at 1220, HR 72. At 1250, B/P is 138/72, HR 77. Metoprolol 50 mg po given. At 1300, patient was taken to CT and placed on applications programmer showing cardiac rhythm SR. HR is At 1304, B/P is 136/72, and Nitroglycerin 0.8 mg SL was given. After CT, patient was monitored, and at discharge VS were: Time 1315 B/P 116/87, HR 63, Resp 20 Sats 99. IV was D/C'd and a clean, dry, dressing was placed. Pt denies dizziness, chest pain, or shortness of breath and was discharged in stable condition [facility] 2023-08-01 13:30:00 Addended by: YVETTE BORJA on: 08/01/2023 02:03 PM Modules accepted: Orders [facility] 2023-04-19 08:54:09 Formatting of this n ote might be different from the original. Incoming medical records from [facility]. Placed in provider's box. Ananya Stafford [facility] 2023-03-25 10:30:00 Addended by: BRAYAN BECKER on: 03/25/2023 11:33 AM Modules accepted: Orders [facility]
[2024-06-16] MEDS ORDERED: NA CHLORIDE 0.9% 1,000 ML ONE (09:01)
[2024-06-16] MEDS ORDERED: MORPHINE 4 MG/ML SYR ONE ×2 (09:01→12:05)
[2024-06-16] MEDS ORDERED: FAMOTIDINE 20 MG/2 ML VIAL IV ONE (09:01)
[2024-06-16] MEDS ORDERED: ONDANSETRON 4 MG/2 ML VIAL ONE (09:01)
[2024-06-16 09:40] LABS: Absolute Basophils 0.1 K/uL (0-0.5); Absolute Eosinophils 0.3 K/uL (0-0.5); Absolute Lymphocytes (CBC) 2.6 K/uL (0.7-4.9); Absolute Monocytes 0.5 K/uL (0.1-1.3); Absolute Neutrophil 4.9 K/uL (1.8-8.0); Basophils % 0.6 % (0-1.3); Hematocrit 40.1 % (36.0-45.0); Hemoglobin 13.3 g/dL (12.0-15.0); Lymphocytes % 31.3 % (15.3-44.8); MCH 26.8 pg (27.0-35.0); MCHC 33.1 g/dL (32.0-36.0); MPV 7.3 fL (7.6-11.3); Monocytes % 5.8 % (3.3-12.3); Neutrophils % 58.3 % (41.7-73.7); Nucleated Red Blood Cells % 0.2 % (0-0); Platelets 328 thou/uL (152-406); RBC Red Blood Cell Count 4.95 M/uL (3.86-4.86); Red Cell Distribution Width 15.6 % (12.1-15.2)
[2024-06-16 10:33] LABS: Albumin 3.3 g/dL (3.4-5.0); Albumin/Globulin Ratio 1.2 (1.1-1.8); Anion Gap 9.3 mEq/L (5.0-15.0); Bilirubin Total 0.3 mg/dL (0.2-1.0); Globulin 2.8 g/dL (2.3-3.5); Potassium 4.3 mEq/L (3.5-5.1); Protein, Total 6.1 g/dL (6.4-8.2)
--- NOTE | 2024-06-16 10:38 | RAD REPORT ---
EXAM: CT brain without contrast HISTORY: Headache COMPARISON: 2021 TECHNIQUE: Multiple contiguous axial images were obtained and a CT of the brain without contrast.. Sagittal and coronal reconstruction performed. Automated exposure control, adjustment of the mA and/or kV according to patient size, and/or iterative reconstruction. Unless otherwise specified, incidental f indings do not require dedicated imaging follow-up FINDINGS: Ventricular shunt courses into the right lateral ventricle. Ventricles are normal caliber. An intracranial bleed is not seen No extra-axial fluid collection noted No significant hypodensity within the brain No fluid within the visualized sinuses or mastoids noted. IMPRESSION: No acute intracranial abnormality noted. If the patient's symptoms persist MRI of the brain would be recommended.
--- NOTE | 2024-06-16 10:43 | RAD REPORT ---
EXAMINATION: CT ABDOMEN AND PELVIS WITH CONTRAST CLINICAL INDICATION: Abdominal pain TECHNIQUE: CT abdomen and pelvis was performed, after the administration of 100 cc Isovue-300.. Sagit milena and coronal reconstructions were obtained. One or more of the following dose reduction techniques were used: Automated exposure control, adjustment of the mA and kV according to patient si ze, and iterative reconstruction. Unless otherwise specified, incidental findings do not require dedicated imaging follow-up. [id number]. Oral contrast was not given which limits evaluation of bowel and appendix. COMPARISON: none FINDINGS: Mild fatty liver. Spleen, pancreas, adrenals and kidneys unremarkable. Post surgical changes involving the stomach. FIREWORKS INSPECTOR shunt with its tip in the left lower pelvis. Trace amount of ascites. No adnexal mass. 1.8 cm left ovarian follicle. : IMPRESSION: No acute abnormality displayed
--- NOTE | 2024-06-16 12:16 | EDPHYS ---
Physician Documentation [facility] Name: Shelby Arias Age: 48 yrs Sex: Female : 1975 Arrival Date: 06/16/2024 Time: 07:53 Bed 13 Private MD: ED Physician Karsten Biggs HPI: 06/16 16:30 This 48 yrs old Female presents to ER via Wheelchair with complaints of Pain All Over. rt 16:30 Patient with history of fibromyalgia presents to the ED with about 2 weeks of worsening rt pain to the bilateral hips as well as nausea and vomiting. Denies injury, acute complaints, symptoms are moderate in severity, no other aggravating or alleviating factors.. 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 - Infectious Disease History:: Denies. - Social history:: Smoking status: Reported history of juuling and/or vaping. - Family history:: not pertinent. ROS: 16:30 Constitutional: Negative for fever, chills, and weight loss, Cardiovascular: Negative rt for chest pain, palpitations, and edema, Respiratory: Negative for shortness of breath, cough, wheezing, and pleuritic chest pain, Neuro: Negative for headache, weakness, numbness, tingling, and seizure, 16:30 Abdomen/GI: Positive for abdominal pain, nausea and vomiting, 16:30 MS/extremity: Positive for pain, Negative for injury or acute deformity, Exam: 16:30 Constitutional: This is a well developed, well nourished patient who is awake, alert, rt and in no acute distress. Head/Face: Normocephalic, atraumatic. Chest/axilla: Normal chest wall appearance and motion. Nontender with no deformity. No lesions are appreciated. Cardiovascular: Regular rate and rhythm with a normal S1 and S2. No gallops, murmurs, or rubs. Normal PMI, no JVD. No pulse deficits. Respiratory: Lungs have equal breath sounds bilaterally, clear to auscultation and percussion. No rales, rhonchi or wheezes noted. No increased work of breathing, no retractions or nasal flaring. Skin: Warm, dry with normal turgor. Normal color with no rashes, no lesions, and no evidence of cellulitis. MS/ Extremity: Pulses equal, no cyanosis. Neurovascular intact. Full, normal range of motion. Neuro: Awake and alert, GCS 15, oriented to person, place, time, and situation. Cranial nerves II-XII grossly intact. Motor strength 5/5 in all extremities. Sensory grossly intact. Cerebellar exam normal. Normal gait. 16:30 Abdomen/GI: Mild tenderness diffusely without rebound, guarding, distention, Vital Signs: 08:17 BP 145 / 90; Pulse 81; Resp 14; Temp 97.7(O); Pulse Ox 100% on R/A; Weight 80.74 kg; ss Height 5 ft. 3 in. ; Pain 10/10; 10:19 BP 141 / 80; Pulse 73; Resp 16; Pulse Ox 99% ; bp 11:48 BP 137 / 86; Pulse 67; Resp 16; Pulse Ox 99% ; bp 12:37 BP 148 / 72; Pulse 68; Resp 16; Pulse Ox 99% ; bp 08:17 Body Mass Index 31.53 (80.74 kg, 160.02 cm) ss 08:17 Pain Scale: Adult ss MDM: 08:45 Medical Screening Exam initiated rt 16:30 Differential Diagnosis Fibromyalgia, electrolyte disturbance, bowel obstruction. Data rt reviewed: vital signs, nurses notes, lab test result(s), radiologic studies. I considered the following discharge prescriptions or medication management in the emergency department Medications were administered in the Emergency Department. See MAR. Independent interpretation of the following test(s) in the Emergency Department CT Scan: My interpretation is No bowel obstruction seen on interpretation of CT scan images. Care significantly affected by the following chronic conditions: Fibromyalgia. Counseling: I had a detailed discussion with the patient and/or guardian regarding the historical points, exam findings, and any diagnostic results supporting the discharge/admit diagnosis, lab results, radiology results, the need for outpatient follow up. Response to treatment: the patient's symptoms have markedly improved after treatment. 06/16 09:35 Order name: Comprehensive Metabolic Panel; Complete Time: 11:35 EDMS 06/16 09:35 Order name: Lipase; Complete Time: 11:35 EDMS 06/16 09:35 Order name: CBC with Automated Diff; Complete Time: 11:35 EDMS 06/16 08:57 Order name: CT Abd/Pelvis - IV Contrast Only rt 06/16 08:57 Order name: CT Head Brain wo Cont rt 06/16 09:41 Order name: Head Brain Wo Cont; Complete Time: 11:35 EDMS 06/16 09:41 Order name: Abdomen ; Complete Time: 11:35 EDMS 06/16 08:57 Order name: IV Saline Lock; Complete Time: 09:20 rt 06/16 08:57 Order name: Labs collected and sent; Complete Time: 09:20 rt 06/16 09:44 Order name: Labs - recollect needed: green; Complete Time: 10:14 bc6 Administered Medications: 09:20 Drug: Ondansetron IVP 4 mg IVP once; over 2 minutes Route: IVP; Site: left forearm; bp 09:47 Follow up: Response: No adverse reaction bp 09:20 Drug: morphine IVP or IV 4 mg IVP once over 4 mins Route: IVP; Infused Over: 4 mins; bp Site: left forearm; 09:47 Follow up: Response: No adverse reaction bp 09:20 Drug: NS 0.9% IV 1000 ml IV at 1 bolus Per protocol; to be given as a bolus over 60 bp minutes Route: IV; Rate: 1 bolus; Site: left forearm; 12:38 Follow up: IV Status: Completed infusion bp 09:20 Drug: Famotidine IVP 20 mg IVP once; dilute with 10 mL 0.9% NaCl; give over 2 minutes bp Route: IVP; Site: left forearm; 09:47 Follow up: Response: No adverse reaction bp 12:07 Drug: morphine IVP or IV 4 mg IVP once over 4 mins Route: IVP; Infused Over: 4 mins; bp Site: left forearm; 12:38 Follow up: Response: No adverse reaction bp Disposition Summary: 06/16/24 12:14 Discharge Ordered Notes: Location: Home rt Problem: new rt Symptoms: have improved rt Condition: Stable rt Diagnosis - Fibromyalgia rt Followup: rt - With: Private Physician - When: 2 - 3 days - Reason: Discharge Instructions: - Discharge Summary Sheet rt - Myofascial Pain Syndrome and Fibromyalgia rt Forms: - Medication Reconciliation Form rt - Antibiotic Education rt - Prescription Opioid Use rt - Patient Portal Instructions rt - Leadership Thank You Letter rt Prescriptions: - gabapentin 300 mg Oral capsule - take 1 capsule ORAL route 3 times per day; 21 capsule; Refills: 0, Product rt Selection Permitted - ondansetron 4 mg Oral Tablet,disintegrating - take 1 tablet ORAL route every 6 hours for 5 days as needed for nausea; 15 rt tablet; Refills: 0, Product Selection Permitted - Tramadol 50 mg Oral Tablet - take 1 tablet ORAL route every 8 hours as needed; 12 tablet; Refills: 0, rt Product Selection Permitted Signatures: Dispatcher [employer] EDVianey Ward RN RN ss Peltier, Brian, RN RN bp Tur[place]ton, Ryan, MD MD rt Nataly Elliott bc6 Corrections: (The following items were deleted from the chart) 08:21 08:20 Allergies: shrimp; ss ss 12:10 10:52 CBC+H.LAB.BRZ ordered. EDMS EDMS 12:10 10:52 COMPREHENSIVE METABOLIC PANEL+C.LAB.BRZ ordered. EDMS EDMS 12:10 10:52 LIPASE+C.LAB.BRZ ordered. EDMS EDMS
--- NOTE | 2024-06-16 12:16 | ER ---
Nurse's Notes [facility] Name: Shelby Arias Age: 48 yrs Sex: Female : 1975 Arrival Date: 06/16/2024 Time: 07:53 Bed 13 Private MD: Diagnosis: Fibromyalgia Presentation: 06/16 08:17 Chief complaint: Patient states: N/V x 2 week, worse the past 3 days. Pt reports a hx ss of fibromyalgia and c/o pain all over, especially in joints x 1 week, but has gotten worse in the past 3 days. Coronavirus screen: Client denies travel out of the [place] in the last 14 days. Ebola Screen: Patient denies exposure to infectious person. Patient denies travel to an Ebola-affected area in the 21 days before illness onset. Initial Sepsis Screen: Does the patient meet any 2 criteria? No. Patient's initial sepsis screen is negative. Does the patient have a suspected source of infection? No. Patient's initial sepsis screen is negative. Risk Assessment: Do you want to hurt yourself or someone else? Patient reports no desire to harm self or others. Onset of symptoms was June 02, 2024. 08:17 Method Of Arrival: Wheelchair ss 08:17 Acuity: YOVANY 3 ss Triage Assessment: 08:56 General: Appears in no apparent distress. Behavior is calm, cooperative, appropriate bp for age. Pain: Complains of pain in GENERALIZED. EENT: No deficits noted. Neuro: No deficits noted. Cardiovascular: No deficits noted. Respiratory: No deficits noted. GI: Reports nausea, vomiting. : No signs and/or symptoms were reported regarding the genitourinary system. Derm: No deficits noted. Musculoskeletal: No deficits noted. [employer]: 08:20 LMP N/A - Irregular menses, Not ss Historical: - Allergies: 08:20 Ancef; ss 08:20 Effexor; ss 08:20 Vistaril; ss - PMHx: 08:20 COPD; diabetes mellitus; GERD; IIH; SVT; Fibromyalgia; ss - PSHx: 08:20 Brain Shunt; carpal tunnel; neck; Left ankle; gastric sleeve; ss - Immunization history:: Client reports receiving the 2nd dose of the Covid vaccine. - Infectious Disease History:: Denies. - Social history:: Smoking status: Reported history of juuling and/or vaping. - Family history:: not pertinent. Screenin:21 [facility] ED Fall Risk Assessment (Adult) History of falling in the last 3 months, bp including since admission No falls in past 3 months (0 pts) Confusion or Disorientation No (0 pts) Intoxicated or Sedated No (0 pts) Impaired Gait No (0 pts) Mobility Assist Device Used No (0 pt) Altered Elimination No (0 pt) Score/Fall Risk Level 0 - 2 = Low Risk. Abuse screen: Denies threats or abuse. Denies injuries from another. Nutritional screening: No deficits noted. Tuberculosis screening: No symptoms or risk factors identified. Assessment: 09:21 General: Appears uncomfortable, Behavior is cooperative, appropriate for age, anxious. bp Pain: Complains of pain in abdomen. 10:19 Reassessment: Patient appears in no apparent distress at this time. Patient is alert, bp oriented x 3, equal unlabored respirations, skin warm/dry/pink. 11:49 Reassessment: Patient appears in no apparent distress at this time. Patient is alert, bp oriented x 3, equal unlabored respirations, skin warm/dry/pink. Vital Signs: 08:17 BP 145 / 90; Pulse 81; Resp 14; Temp 97.7(O); Pulse Ox 100% on R/A; Weight 80.74 kg; ss Height 5 ft. 3 in. ; Pain 10/10; 10:19 BP 141 / 80; Pulse 73; Resp 16; Pulse Ox 99% ; bp 11:48 BP 137 / 86; Pulse 67; Resp 16; Pulse Ox 99% ; bp 12:37 BP 148 / 72; Pulse 68; Resp 16; Pulse Ox 99% ; bp 08:17 Body Mass Index 31.53 (80.74 kg, 160.02 cm) ss 08:17 Pain Scale: Adult ss ED Course: 07:55 Patient arrived in ED. mg5 08:04 Karsten Biggs MD is Attending Physician. rt 08:20 Triage completed. ss 08:20 Arm band placed on right wrist. ss 08:53 Benjamin Perez, MAJOR is Primary Nurse. bp 09:20 Inserted saline lock: 22 gauge in left forearm, using aseptic technique. Blood bp collected. Flushed with 10 mL NS. 09:21 Patient has correct armband on for positive identification. bp 12:37 No provider procedures requiring assistance completed. IV discontinued, intact, bp bleeding controlled, No redness/swelling at site. Pressure dressing applied. Administered Medications: 09:20 Drug: Ondansetron IVP 4 mg IVP once; over 2 minutes Route: IVP; Site: left forearm; bp 09:47 Follow up: Response: No adverse reaction bp 09:20 Drug: morphine IVP or IV 4 mg IVP once over 4 mins Route: IVP; Infused Over: 4 mins; bp Site: left forearm; 09:47 Follow up: Response: No adverse reaction bp 09:20 Drug: NS 0.9% IV 1000 ml IV at 1 bolus Per protocol; to be given as a bolus over 60 bp minutes Route: IV; Rate: 1 bolus; Site: left forearm; 12:38 Follow up: IV Status: Completed infusion bp 09:20 Drug: Famotidine IVP 20 mg IVP once; dilute with 10 mL 0.9% NaCl; give over 2 minutes bp Route: IVP; Site: left forearm; 09:47 Follow up: Response: No adverse reaction bp 12:07 Drug: morphine IVP or IV 4 mg IVP once over 4 mins Route: IVP; Infused Over: 4 mins; bp Site: left forearm; 12:38 Follow up: Response: No adverse reaction bp Medication: 12:37 VIS not applicable for this client. bp Outcome: 12:14 Discharge ordered by . rt 12:37 Discharged to home ambulatory, with family, bp 12:37 Condition: stable 12:37 Discharge instructions given to patient, Instructed on discharge instructions, follow up and referral plans. medication usage, Demonstrated understanding of instructions, follow-up care, medications, Prescriptions given X 3, 12:38 Patient left the ED. bp Signatures: Vianey Dawson RN RN ss Benjamin Perez RN RN bp Karsten Biggs MD MD rt Leann Pulido mg5 Corrections: (The following items were deleted from the chart) 08:21 08:20 Allergies: shrimp; ss ss
[2024-06-16 13:08] VITALS: TEMP 97.7
[2024-06-16 13:09] VITALS: O2SAT 99
[2024-06-16 13:11] VITALS: BP 148/72
== END 2024-06-16 12:38 | disposition home or self-care (01) ==
LOC: ER 07:53
DX: M79.7 Fibromyalgia (principal)
CPT/HCPCS: 36415; 70450; 74177; 80053; 83690; 85025; 96361; 96374; 96375; 99284; J2405; J7030; Q9967

== ENCOUNTER 2024-10-05 08:29 | Day surgery (SDC) | payer OTHER ==
[2024-10-02 16:20] LABS: Absolute Basophils 0.1 K/uL (0-0.5); Absolute Eosinophils 0.4 K/uL (0-0.5); Absolute Lymphocytes (CBC) 2.9 K/uL (0.7-4.9); Absolute Monocytes 0.4 K/uL (0.1-1.3); Absolute Neutrophil 4.6 K/uL (1.8-8.0); Basophils % 0.7 % (0-1.3); Eosinophils % 5.1 % (0-4.4); Hematocrit 35.2 % (36.0-45.0); Hemoglobin 11.5 g/dL (12.0-15.0); Lymphocytes % 34.8 % (15.3-44.8); MCH 24.7 pg (27.0-35.0); MCHC 32.7 g/dL (32.0-36.0); MCV 75.6 fL (80-100); MPV 7.6 fL (7.6-11.3); Neutrophils % 54.4 % (41.7-73.7); Platelets 379 thou/uL (152-406); RBC Red Blood Cell Count 4.66 M/uL (3.86-4.86); Red Cell Distribution Width 14.1 % (12.1-15.2)
[2024-10-02 16:42] LABS: ALT/SGPT 40 U/L (13-56); AST/SGOT 31 U/L (15-37); Albumin/Globulin Ratio 1.1 (1.1-1.8); Alkaline Phosphatase 61 U/L (45-117); Anion Gap 19.6 mEq/L (5.0-15.0); BUN Blood Urea Nitrogen 7 mg/dL (7-18); Bicarbonate 19 mEq/L (21-32); Bilirubin Total 0.3 mg/dL (0.2-1.0); Globulin 3.7 g/dL (2.3-3.5); Glomerular Filtration Rate 97 ml/min (=/>90); Glucose Level 180 mg/dL (74-106); Lipase 119 U/L (13-75); Potassium 3.6 mEq/L (3.5-5.1); Protein, Total 7.7 g/dL (6.4-8.2); Sodium Level 137 mEq/L (136-145)
[2024-10-02 16:43] LABS: Bilirubin Direct < 0.2 mg/dL (0-0.2); Bilirubin Indirect, Calculated 0.1 mg/dL (0.2-0.8)
[2024-10-05] MEDS ORDERED: CEFOXITIN SODIUM 1 GM/VIAL ONE (08:56)
[2024-10-05] MEDS: NA CHLORIDE 0.9% 1,000 ML ONE (09:10)
[2024-10-05] MEDS ORDERED: ONDANSETRON 4 MG/2 ML VIAL ONE ×2 (10:39→13:11)
[2024-10-05] MEDS ORDERED: ROCURONIUM 50 MG/5 ML VIAL IV ONE (10:40)
[2024-10-05] MEDS ORDERED: FENTANYL CITR 100 MCG/2 ML ONE (10:40)
[2024-10-05] MEDS ORDERED: propofoL 200 MG/20 ML VIAL IV ONE (10:40)
[2024-10-05] MEDS ORDERED: LIDOCAINE 2% MPF 5 ML VIAL ONE (10:40)
[2024-10-05] MEDS ORDERED: MIDAZOLAM HCL 2 MG/2 ML INJ ONE (10:40)
[2024-10-05] MEDS: CIPROFLOXACIN 400mg IV 400 MG/200 ML BAG IV ONE (11:00)
[2024-10-05] MEDS ORDERED: EPHEDRINE SULF 50 MG/ML VIAL ONE (11:29)
[2024-10-05] MEDS ORDERED: dexAMETHasone 10 MG/ML VIAL ONE (11:29)
[2024-10-05] MEDS ORDERED: GLYCOPYRROLATE 0.2 MG/ML SYR ONE ×3 (11:30→12:06)
[2024-10-05] MEDS ORDERED: Mastisol Adhesive Liq ONE (11:57)
[2024-10-05] MEDS ORDERED: NEOSTIGMINE 1 MG/ML -10 ML VIAL ONE (12:07)
--- NOTE | 2024-10-05 12:22 | P.BOP ---
Preoperative diagnosis: acute cholecystitis, symptomatic cholelithasis, RUQ abd pain Postoperative diagnosis: same Primary procedure: Laparoscopic cholecystectomy Estimated blood loss: <10cc Specimen: gb Findings: as above Anesthesia: General Complications: None Transferred to: Recovery Room Condition: Good
[2024-10-05] MEDS: HYDROMORPHONE HCL 1 MG/ML INJ ONE (13:02)
[2024-10-05] MEDS: CODEINE 30MG/APAP 300MG TAB ONE (13:40)
[2024-10-05 14:53] VITALS: BP 140/76; TEMP 97.2; O2SAT 96
--- NOTE | 2024-10-05 23:19 | OP ---
Date of Procedure: 10/05/2024 Surgeon: Wang Arevalo MD Preoperative Diagnoses: Acute cholecystitis, symptomatic cholelithiasis, right upper quadrant abdomi nal pain. Postoperative Diagnoses: Acute cholecystitis, symptomatic cholelithiasis, right upper quadrant abdom inal pain. Procedure: Laparoscopic cholecystectomy. Estimated Blood Loss: Less than 10 cc. Specimen: Gallbladder. Findings: The patient has a distended and inflamed gallbladder, possibly will also have a stomach di stention even with the NG tube placed by the anesthesiologist. We will encourage this patient to be seen electively with a gardener to rule out the condition of gastroparesis. Complications: None. Indications: This is a case of a 49-year-old patient, comes to us with above diagnoses. Fully expla ined the benefits, alternatives, and risks of laparoscopic possible open cholecystectomy, which inclu de, but not limited to infection, bleeding, damage to adjacent structures, anesthesia complication, c holedocholithiasis, bile leak, pancreatitis, SD, and even . She also understands this may not r elieve any symptoms. She might need more than one surgical intervention. She has history of gastric stapling. Also have a history of APPRENTICE ELECTRICIAN shunt. She understands the possibility of that mesh. She has signed a consent. Description Of Procedure: The patient was brought to the operating room, placed in supine position. Anesthesia was induced without complication. Abdominal area was prepped and draped in usual sterile fashion. Marcaine 0.5% was injected for local anesthetic followed by sharp incision of the skin in the supraumbilical region. Incision was carried down to fascia, which was opened under direct vision . Peritoneum was encountered and opened under direct vision. Vicryl #1 placed inside the fascia. H asson trocar was carefully introduced. No bleeding was obtained. Immediately when we took that area , we were trying to localize it medially to the APPRENTICE ELECTRICIAN shunt. We made sure that the APPRENTICE ELECTRICIAN shunt was on the side and not in light of work and so it does not get injured. I put a grasper in the fundus of the g allbladder, another grasper in infundibulum retracting the gallbladder in the inferolateral fashion e xposing the triangle of Calot and obtaining critical view. Unfortunately, the stomach did not decomp ress, they tried different times. Anesthesia replaced the NG tube, so what I did, I put another 5 mm trocar that helped me keep the stomach to the side, so we can continue with surgery. Once the trian gle of Calot was identified, cystic duct and cystic artery were clearly isolated and freed circumfere ntially and a connection between those and the gallbladder were clearly visualized circumferentially. I proceeded to ligate this by at least using 3 clips proximal, 1 clip distal, ligation in middle. Cystic artery was also ligated in a similar form. No bile leak. No bleeding. The gallbladder was r emoved from liver using Bovie cauterizer and removed from abdominal cavity using EndoCatch through th e umbilical incision. The area was inspected once again. No bile leak. No bleeding. The stomach w as still distended. I wonder if this patient may have some gastroparesis. I removed the trocars und er direct vision. The APPRENTICE ELECTRICIAN shunt seemed to be in place, away from our working area, then irrigated sub cutaneous tissue, closed that with 3-0 chromic. I closed the fascia first with #1 Vicryl and then ir rigated subcutaneous tissue, closed that with 3-0 chromic, and the incisions were closed with armando . Sponge count and instrument counts correct. The patient tolerated the procedure well. The patien t was sent to recovery in stable condition. SABRINA/NAIMA Voice ID: [id number] Report ID: [id number]
--- NOTE | 2024-10-05 23:19 | DS ---
Date of Discharge: 10/05/2024 Diagnoses: Acute cholecystitis, symptomatic cholelithiasis, right upper quadrant abdominal pain. Procedure: Laparoscopic cholecystectomy. Condition: Stable. Disposition: Home. Activity: As tolerated. No heavy lifting. Discharge Instructions: Follow up in my office in 1 week. Call for appointment at [phone]. Keep a stephan dry for 48 hours, then may shower, then may put some Neosporin over the armando and Band-Aid. SABRINA/NAIMA Voice ID: [id number] Report ID: [id number]
== END 2024-10-05 14:04 | disposition home or self-care (01) ==
LOC: OR 08:29
PROVIDERS: ATTEND Surgery
PROC: 0FT44ZZ Resection of Gallbladder, Percutaneous Endoscopic Approach (ICD-10-PCS; principal; 2024-10-05 11:15)
DX: K81.1 Chronic cholecystitis (principal); R10.11 Right upper quadrant pain
CPT/HCPCS: 85025; 80048; 36415; 82947 ×2; 80076; 83690; 47562; J2704; J2710; J2003; J2250; J3010; J1100; J1171; J2405 ×2; J0744; J7030; J0694

== ENCOUNTER 2024-11-22 11:30 | Emergency (ER) | payer OTHER ==
--- OUTSIDE RECORDS SUMMARY | 2024-11-22 11:39 | XMS REPORT | Continuity of Care Document ---
Author Name Unknown Address [address] [facility] [address] Miguel. [address] [place] [address] [facility] [address] [facility] [address] [place] [address] Care Team Providers Care Workers Compensation Specialist Name Role Phone MIS VEGAS Primary Care Physician UnavailSTEFANY Gray Attending Clinician Unav STEFANY Ríos Attending Clinician UnaROSY Javier K.HReggie Attending Clinician Unavailjoanne Borja MD, Rosy K.HReggie Attending Clinician [phone] FELI CHANG Attending Clinician UnavailFELI Solitario Attending Clinician UnavailFeli Solitario DO Attending Clinician [phone] TAINA SHORT Attending Clinician UnavailTAINA Carvajal Attending Clinician UnavailFeli Rivers DO Attending Clinician [phone] ROBI SANTORO Attending Clinician Unavail ROBI Dubon Attending Clinician Unavail benjamín Borja MD, Sendmoriah K.HReggie Attending Clinician + [phone] Doctor Unassigned, Micro Attending Clinician U manasa Santoro MD, Robi Finch Attending Clinician [phone] Therapist, Adc Respiratory Attending Clinician U Mis Obregon Attending Clinician [phone] Fortunato Fischer MD Attending Clinician [phone] Yu Longoria RN Attending Clinician [phone] Aryan Fay MD Attending Clinician FORTUNATO FISCHER Attending Clinician Unavailable ROSY BORJA Admitting Clinician Fortunato Houser MD Admitting Clinician FORTUNATO FISCHER Admitting Clinician Unavailable Payers Payer Name Policy Type Policy Number Effective Date Expirati on Date Source ALEKSANDR KENNEDY PLS [facility] [id number] 2023 00:00:00 [employer] [place] [employer] [id number] 2018 00:00:00 2023 00:00:00 Problems Condition Name Condition Details Condition Category Status Onset Date Resolution Date Last Treatment Date Treating Clinician Comments Source Bipolar affective disorder, current episode mixed Bipolar Affective Disorder, Current Episode Mixed Problem Active 4-10 00:00: 00 [facility] Deep pain on intercours e Deep Pain on Intercours e Problem Active 4-10 00:00: 00 [facility] Hypertensi ve disorder Hypertensi ve Disorder Problem Active 4-10 00:00: 00 [facility] Nausea and vomiting Nausea and Vomiting Problem Active 1-21 00:00: 00 [facility] Pain in pelvis Pain in Pelvis Problem Active 1-10 00:00: 00 [facility] Excessive menstruati on with irregular cycle Excessive Menstruati on with Irregular Cycle Problem Active 1-08 00:00: 00 [facility] Bacterial vaginosis Bacterial Vaginosis Problem Active 2023-08 0-26 00:00: 00 [facility] Type 2 diabetes mellitus Type 2 Diabetes Mellitus Problem Active 2023-08 0-24 00:00: 00 [facility] Bipolar disorder Bipolar Disorder Problem Active 2023-08 0-24 00:00: 00 [facility] Alcohol dependence Alcohol Dependence Problem Active 2023-08 0-24 00:00: 00 [facility] Nicotine dependence Nicotine Dependence Problem Active 2023-08 0-24 00:00: 00 [facility] Abnormal heart beat Abnormal Heart Beat Problem Active 2023-08 0-24 00:00: 00 [facility] Chronic obstructiv e pulmonary disease Chronic Obstructiv e Pulmonary Disease Problem Active 2023-08 0-24 00:00: 00 [facility] Gastroesop hageal reflux disease Gastroesop hageal Reflux Disease Problem Active 2023-08 0-24 00:00: 00 [facility] Gastropare sis syndrome Gastropare sis Syndrome Problem Active 2023-08 0-24 00:00: 00 [facility] Acute vaginitis Acute Vaginitis Problem Active 2023-08 0-24 00:00: 00 [facility] Postcoital bleeding Postcoital Bleeding Problem Active 2023-08 0-24 00:00: 00 [facility] Abnormal uterine bleeding Abnormal Uterine Bleeding Problem Active 2023-08 0-24 00:00: 00 [facility] Menopausal symptom Menopausal Symptom Problem Active 2023-08 0-24 00:00: 00 [facility] Fibromyalg ia Fibromyalg ia Problem Active 2023-08 024 00:00: 00 [facility] Fatigue Fatigue Problem Active 2023-08 0-24 00:00: 00 [facility] Heartburn Heartburn Problem Active 2023-08 024 00:00: 00 [facility] Atypical squamous cells of undetermin ed significan ce on cervical Papanicola ou smear Atypical Squamous Cells of Undetermin ed Significan ce on Cervical Papanicola ou Smear Problem Active 2023-08 024 00:00: 00 [facility] Pelvic and perineal pain Pelvic and Perineal Pain Problem Active 2023-08 024 00:00: 00 [facility] Candidal intertrigo Candidal Intertrigo Problem Active 2023-08 0-24 00:00: 00 [facility] Diabetes mellitus Diabetes Mellitus Problem Active 2023-08 024 00:00: 00 [facility] Obesity (BMI 30-39.9) Obesity (BMI 30-39.9) Disease Active 01-28 00:00: 00 [facility] 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 01-28 00:00: 00 [facility] [employer] (ventricul operitonea l) shunt status [employer] DEF[employer]OLLER (ventricul operitonea l) shunt status Disease Active 01-27 00:00: 00 [facility] [employer] DEF[employer]ER (ventricul operitonea l) shunt status [employer] DEF[employer]ER (ventricul operitonea l) shunt status Disease Active 01-27 00:00: 00 [facility] Allergies, Adverse Reactions, Alerts Allergy Name Allergy Type Status Severity Reaction(s) Onset Date Inactive Date Treating Clinician Comments Source Cefazoli n Propensi ty to adverse reaction s Active Anaphylaxis 01-27 00:00: 00 [facility] Venlafax ine Propensi ty to adverse reaction s Active Other - See comments 01-27 00:00: 00 Panic attack [facility] Shrimp Propensi ty to adverse reaction s Active Anaphylaxis 01-27 00:00: 00 [facility] Hydroxyz ine Hcl Propensi ty to adverse reaction s Active Other - See comments 01-27 00:00: 00 migraine [facility] CEFAZOLI N DRUG INGREDI Active Anaphylaxis 01-27 00:00: 00 [facility] VENLAFAX INE DRUG INGREDI Active Other-Cmnt 01-27 00:00: 00 [facility] SHRIMP DRUG INGREDI Active Anaphylaxis 01-27 00:00: 00 [facility] HYDROXYZ INE HCL DRUG INGREDI Active Other-Cmnt 01-27 00:00: 00 [facility] ANCEF Allergy to substanc e Active Itching [facility] EFFEXOR Allergy to substanc e Active Itching [facility] Vistaril Allergy to substanc e Active Itching [facility] NO KNOWN ALLERGIE S Drug Class Active [facility] Codeine Allergy to substanc e Active Itching [facility] Social History Social Habit Start Date Stop Date Quantity Comments Source Gender identity [facility] of tobacco use Passive smoker [facility] Tobacco use and exposure 2023-03-25 00:00:00 2023-03-25 00:00:00 Smokeless tobacco non-user [facility] History of Social function 2023-03-25 00:00:00 2023-03-25 00:00:00 [facility] Exposure to SARS-CoV-2 (event) 2022-01-17 00:00:00 2022-01-27 09:37:00 Not sure [facility] Sex assigned at 1975 00:00:00 1975 00:00:00 [facility] Smoking Status Start Date Stop Date Source Former Smoker [facility] Tobacco smoking consumption unknown [facility] Medications Ordered Medication Name Filled Medication Name Start Date Stop Date Current Medication? Ordering Clinician Indication Dosage Frequency Signature (SIG) Comments Components Source cariprazine (VRAYLAR) 1.5 mg capsule 09-30 13:17: 48 Yes [id number] 1.5mg Take 1 capsule by mouth in the morning. [facility] propranoloL 10 mg tablet 09-30 00:00: 00 Yes [id number] 10mg Take 1 tablet by mouth in the morning and 1 tablet in the evening. [facility] ezetimibe 10 mg tablet 08-26 00:00: 00 Yes [id number] 10mg Take 1 tablet by mouth in the morning. [facility] fluticasone propion-emperatriz meteroL (ADVAIR DISKUS) 250-50 mcg/dose inhalation disk 2023-08 0 00:00: 00 Yes [id number] 1{puff} Inhale 1 Puff every 12 (twelve) hours. [facility] nitroglycer in (NITROSTAT) sublingual tablet 0.8 mg 10-09 19:15: 00 10-09 19:05 :00 No [id number] .8mg 0.8 mg, Sublingual , ONCE, 1 dose, On Sat10/09/23 at 1315, Routine [facility] metoprolol tartrate (LOPRESSOR) tablet 50 mg 10-09 19:15: 00 10-09 18:46 :00 No [id number] 50mg 50 mg, Oral, ONCE, 1 dose, On Sat10/09/23 at 1315, Routine [facility] metoprolol tartrate (LOPRESSOR) tablet 100 mg 10-09 19:15: 00 10-09 18:24 :00 No [id number] 100mg 100 mg, Oral, ONCE, 1 dose, On Sat10/09/23 at 1315, Routine [facility] iopamidol (ISOVUE 370-500 mL) injection 70 mL 10-09 18:30: 00 10-09 18:20 :00 No [id number] 70mL 70 mL, Intravenou s, ONCE, 1 dose, On Sat10/09/23 at 1230, Routine [facility] propranoloL 10 mg tablet 2022-08 13:33: 56 09-30 00:00 :00 No 10mg Take 1 tablet by mouth in the morning and 1 tablet in the evening. [facility] fenofibrate 48 mg tablet 2022-08 13:33: 51 Yes 48mg Take 1 tablet by mouth in the morning. [facility] rosuvastati n 10 mg tablet 2022-08 13:33: 47 09-30 00:00 :00 No 10mg Take 1 tablet by mouth at bedtime. [facility] eszopiclone 3 mg tablet 2022-08 13:16: 32 Yes 3mg Take 1 tablet by mouth at bedtime. [facility] clonazePAM 1 mg tablet 2022-08 13:16: 32 Yes 1mg Take 1 tablet by mouth in the morning and 1 tablet at noon and 1 tablet in the evening. [facility] QUEtiapine 100 mg tablet 2022-08 13:14: 41 Yes 200mg Take 2 tablets by mouth at bedtime. [facility] TRULICITY 1.5 mg/0.5 mL PnIj 2022-08 00:00: 00 Yes 1{appli cation} inject 1 Applicatio n under the skin. [facility] traMADoL 50 mg tablet 04-18 14:05: 24 04-18 00:00 :00 No 50mg Take 1 tablet by mouth every 6 (six) hours as needed. [facility] QUEtiapine 100 mg tablet 04-18 14:05: 15 Yes 200mg Take 2 tablets by mouth at bedtime. [facility] Omeprazole 20 mg tablet 04-18 14:04: 58 Yes 40mg Take 2 tablets by mouth at bedtime. [facility] lamoTRIgine 200 mg tablet 04-18 14:04: 56 Yes 200mg Take 1 tablet by mouth in the morning and 1 tablet in the evening. [facility] Cetirizine 10 mg capsule 04-18 14:04: 54 Yes 10mg Take 1 capsule by mouth in the morning. [facility] metFORMIN 500 mg tablet 04-18 13:48: 01 Yes 500mg Take 1 tablet by mouth in the morning and 1 tablet in the evening. Take with meals. [facility] insulin degludec (TRESIBA U-100 INSULIN SC) 04-18 13:48: 01 Yes 20U inject 20 Units under the skin at bedtime. [facility] propranoloL 10 mg tablet 04-18 13:48: 01 Yes 10mg Take 1 tablet by mouth in the morning and 1 tablet in the evening. [facility] rosuvastati n 10 mg tablet 04-18 13:48: 01 Yes 10mg Take 1 tablet by mouth at bedtime. [facility] fenofibrate 48 mg tablet 04-18 13:48: 01 Yes 48mg Take 1 tablet by mouth in the morning. [facility] DULoxetine 60 mg capsule 04-18 13:48: 01 09-30 00:00 :00 No 90mg Take 90 mg by mouth in the morning. [facility] DULoxetine 60 mg capsule 03-25 11:33: 19 Yes 60mg Take 1 capsule by mouth in the morning. [facility] propranoloL 10 mg tablet 03-25 11:33: 19 Yes 10mg Take 1 tablet by mouth in the morning and 1 tablet in the evening. [facility] metFORMIN 500 mg tablet 03-25 11:33: 19 Yes 500mg Take 1 tablet by mouth in the morning and 1 tablet in the evening. Take with meals. [facility] insulin degludec (TRESIBA U-100 INSULIN SC) 03-25 11:33: 19 Yes 20U inject 20 Units under the skin at bedtime. [facility] rosuvastati n 10 mg tablet 03-25 11:33: 19 Yes 10mg Take 1 tablet by mouth at bedtime. [facility] fenofibrate 48 mg tablet 03-25 11:33: 19 Yes 48mg Take 1 tablet by mouth in the morning. [facility] vilazodone (VIIBRYD) 40 mg tablet 03-25 11:30: 59 03-25 00:00 :00 No 40mg Take 40 mg by mouth daily. [facility] traMADoL 50 mg tablet 03-25 11:30: 58 Yes 50mg Take 1 tablet by mouth every 6 (six) hours as needed. [facility] QUEtiapine 100 mg tablet 03-25 11:30: 58 Yes 200mg Take 2 tablets by mouth at bedtime. [facility] Omeprazole 20 mg tablet 03-25 11:30: 58 Yes 40mg Take 2 tablets by mouth at bedtime. [facility] lamoTRIgine 200 mg tablet 03-25 11:30: 58 Yes 200mg Take 1 tablet by mouth in the morning and 1 tablet in the evening. [facility] Cetirizine 10 mg capsule 03-25 11:30: 58 Yes 10mg Take 1 capsule by mouth in the morning. [facility] gabapentin 400 mg capsule 03-25 11:30: 34 03-25 00:00 :00 No 800mg Take 800 mg by mouth at bedtime. [facility] atenoloL 50 mg tablet 03-25 11:30: 28 03-25 00:00 :00 No 50mg Take 50 mg by mouth at bedtime. [facility] ALPRAZolam 0.5 mg tablet 03-25 11:30: 21 03-25 00:00 :00 No .5mg Take 0.5 mg by mouth 3 (three) times daily as needed. [facility] acetaZOLAMI DE 250 mg tablet 03-25 11:30: 12 03-25 00:00 :00 No 500mg Take 500 mg by mouth 2 (two) times daily. [facility] fluticasone propion-emperatriz meteroL (ADVAIR DISKUS) 250-50 mcg/dose inhalation disk 03-25 00:00: 00 06-01 00:00 :00 No [id number] 1{puff} Inhale 1 Puff every 12 (twelve) hours. [facility] acetaZOLAMI DE 250 mg tablet 02-01 19:29: 26 Yes 500mg Take 500 mg by mouth 2 (two) times daily. [facility] QUEtiapine 100 mg tablet 02-01 19:29: 26 Yes 200mg Take 200 mg by mouth at bedtime. [facility] atenoloL 50 mg tablet 02-01 19:29: 26 Yes 50mg Take 50 mg by mouth at bedtime. [facility] Omeprazole 20 mg tablet 02-01 19:29: 26 Yes 40mg Take 40 mg by mouth at bedtime. [facility] gabapentin 400 mg capsule 02-01 19:29: 26 Yes 800mg Take 800 mg by mouth at bedtime. [facility] vilazodone (VIIBRYD) 40 mg tablet 02-01 19:29: 26 Yes 40mg Take 40 mg by mouth daily. [facility] ALPRAZolam 0.5 mg tablet 02-01 19:29: 26 Yes .5mg Take 0.5 mg by mouth 3 (three) times daily as needed. [facility] lamoTRIgine 200 mg tablet 02-01 19:29: 26 Yes 200mg Take 200 mg by mouth 2 (two) times daily. [facility] Cetirizine 10 mg capsule 02-01 19:29: 26 Yes 10mg Take 10 mg by mouth daily. [facility] traMADoL 50 mg tablet 02-01 19:29: 26 Yes 50mg Take 50 mg by mouth every 6 (six) hours as needed. [facility] dicyclomine (BENTYL) 10 mg/5 mL oral solution 5 mg 02-01 13:00: 00 Yes 5mg 5 mg, Oral, TID, First dose on Sat02/01/22 at 0800, Until Discontinu ed, [facility]PRILOSEC[facility] capsule 40 mg 02-01 13:00: 00 Yes 40mg 40 mg, Oral, BID, First dose (after last modificati on) on Sat02/01/22 at 0800, Until Discontinu ed, [facility]ine [facility] dicycl[facility]ine 10 mg/5 mL oral solution 02-01 00:00: 00 03-04 04:59 :00 No [id number] 5mg Take 2.5 mL by mouth 3 (three) times daily for 30 days. [facility] HYDROcodone -acetaminop hen (NORCO) 5-325 mg tablet 02-01 00:00: 00 02-09 04:59 :00 No [id number] 1{tbl} Take 1 tablet by mouth every 6 (six) hours as needed for Pain (scale 7-10) for up to 7 days. Indication s: acute pain [facility] omeprazole (PRILOSEC) capsule 20 mg 01-31 22:45: 00 02-01 10:30 :41 No 20mg 20 mg, Oral, DAILY, First dose on Sat01/31/22 at 1745, Until Discontinu ed, Routine [facility] traMADoL 50 mg tablet 01-30 15:24: 49 Yes 50mg Take 50 mg by mouth every 6 (six) hours as needed. [facility] acetaZOLAMI DE 250 mg tablet 01-30 15:24: 49 Yes 500mg Take 500 mg by mouth 2 (two) times daily. [facility] QUEtiapine 100 mg tablet 01-30 15:24: 49 Yes 200mg Take 200 mg by mouth at bedtime. [facility] atenoloL 50 mg tablet 01-30 15:24: 49 Yes 50mg Take 50 mg by mouth at bedtime. [facility] Omeprazole 20 mg tablet 01-30 15:24: 49 Yes 40mg Take 40 mg by mouth at bedtime. [facility] gabapentin 400 mg capsule 01-30 15:24: 49 Yes 800mg Take 800 mg by mouth at bedtime. [facility] vilazodone (VIIBRYD) 40 mg tablet 01-30 15:24: 49 Yes 40mg Take 40 mg by mouth daily. [facility] ALPRAZolam 0.5 mg tablet 01-30 15:24: 49 Yes .5mg Take 0.5 mg by mouth 3 (three) times daily as needed. [facility] lamoTRIgine 200 mg tablet 01-30 15:24: 49 Yes 200mg Take 200 mg by mouth 2 (two) times daily. [facility] Cetirizine 10 mg capsule 01-30 15:24: 49 Yes 10mg Take 10 mg by mouth daily. [facility] enoxaparin (LOVENOX) injection 40 mg 01-30 13:00: 00 Yes 40mg 40 mg, Subcutaneo us, Q24H, First dose (after last reorder) on Sat01/30/22 at 0800, Until Discontinu ed, Routine [facility] morpHINE (2 mg/mL) injection 2 mg 01-28 22:47: 49 02-01 17:47 :43 No 2mg 2 mg, Slow IV Push, Q4HPRN, Starting on Sat01/28/22 at 1747, Until Damaris 02/01/22 at 1247, Routine, Pain (scale 7-10) [facility] enoxaparin (LOVENOX) injection 40 mg 01-28 22:45: 00 01-28 23:01 :00 No 40mg 40 mg, Subcutaneo us, ONCE, 1 dose, On 01/28/22 at 1745, Routine [facility] methocarbam oL (ROBAXIN) tablet 500 mg 01-28 17:29: 53 Yes 500mg 500 mg, Oral, Q6HPRN, Starting on 01/28/22 at 1229, Until Discontinu ed, Routine, back pain [facility] iopamidol (ISOVUE 370-500 mL) injection 70 mL 01-28 05:45: 00 01-28 05:45 :00 No [id number] 70mL 70 mL, Intravenou s, ONCE, 1 dose, On 01/28/22 at 0100, [facility]ine [facility] Sliding Scale Insulin-Reg ular + Fsbg Testing 01-28 02:00: 00 Yes Subcutaneo us, AC+HS, First dose on 01/27/22 at 2100, Until Discontinu ed, Routine [facility] QUEtiapine (SEROQUEL) tablet 200 mg 01-28 02:00: 00 Yes 200mg 200 mg, Oral, QHS, First dose on 01/27/22 at 2100, Until Discontinu ed, Routine [facility] gabapentin (NEURONTIN) capsule 800 mg 01-28 02:00: 00 Yes 800mg 800 mg, Oral, QHS, First dose on 01/27/22 at 2100, Until Discontinu ed, Routine [facility] atenoloL (TENORMIN) tablet 50 mg 01-28 02:00: 00 Yes 50mg 50 mg, Oral, QHS, First dose on 01/27/22 at 2100, Until Discontinu ed, Routine [facility] famotidine (PEPCID AC) tablet 20 mg 01-28 01:00: 00 Yes 20mg 20 mg, Oral, BID, First dose on 01/27/22 at 2000, Until Discontinu ed, Routine [facility] docusate (COLACE) capsule 100 mg 01-28 01:00: 00 Yes 100mg 100 mg, Oral, BID, First dose on 01/27/22 at 1999, Until Discontinu ed, [facility]ine [facility] lamoTRIgine (LAMICTAL) tablet 200 mg 01-28 01:00: 00 Yes 200mg 200 mg, Oral, BID, First dose on 01/27/22 at 1999, Until Discontinu ed, Routine [facility] acetaZOLAMI DE (DIAMOX) tablet 500 mg 01-28 01:00: 00 Yes 500mg 500 mg, Oral, BID, First dose on 01/27/22 at 1999, Until Discontinu ed, Routine [facility] morpHINE (4 mg/mL) injection 4 mg 01-27 23:15: 00 01-27 22:11 :00 No 4mg 4 mg, Slow IV Push, ONCE, 1 dose, On 01/27/22 at 1815, Routine [facility] lidocaine 1% (XYLOCAINE) 10 mg/mL (1 %) injection 20 mL 01-27 22:45: 00 01-27 22:45 :00 No 20mL 20 mL, Infiltrati on, ONCE, 1 dose, On 01/27/22 at 1745, Routine [facility] ondansetron (ZOFRAN (PF)) injection 4 mg 01-27 21:42: 36 Yes 4mg 4 mg, Slow IV Push, Q6HPRN, Nausea and Vomiting (N/V), Starting on 01/27/22 at 1642
Do ses of ondansetro n 16 mg and above need to be administer ed via IV piggyback. For Dose >=24mg ECG monitoring is advisable.
[facility] glucagon (GLUCAGEN DIAGNOSTIC KIT) injection 1 mg 01-27 21:41: 46 Yes 1mg 1 mg, Intramuscu lar, PRN, Starting on 01/27/22 at 1641, Until Discontinu ed, BIANCA, Blood Glucose < or = 70 mg/dL and patient is unable to swallow or has mental changes. [facility] dextrose 10% (D10W) bolus infusion 250 mL [...] days at room temperatur e. <b r> [facility] HYDROcodone -acetaminop hen (NORCO 5) 5-325 mg tablet 1 tablet 01-27 21:41: 31 Yes 1{tbl} 1 tablet, Oral, Q6HPRN, Starting on [facility] 01/27/22 at 1641, Until Discontinu ed, Routine, Pain (scale 7-10) [facility] acetaminoph en (TYLENOL) tablet 325 mg 01-27 21:41: 29 Yes 325mg 325 mg, Oral, Q4HPRN, Starting on [facility] 01/27/22 at 1641, Until Discontinu ed, Routine, Pain (scale 4-6) [facility] acetaminoph en (TYLENOL) tablet 325 mg 01-27 21:41: 28 Yes 325mg 325 mg, Oral, Q6HPRN, Starting on [facility] 01/27/22 at 1641, Until Discontinu ed, Routine, Pain (scale 1-3) [facility] bisacodyL (DULCOLAX) suppository 10 mg 01-27 21:40: 20 Yes 10mg 10 mg, Rectal, QHSPRN, Starting on [facility] 01/27/22 at 1640, Until Discontinu ed, Routine, Constipati on [facility] NaCl 0.9% (NS) injection 5 mL 01-27 21:40: 20 Yes 5mL 5 mL, Slow IV Push, PRN - SEE INSTRUCTIO NS, Starting on [facility] 01/27/22 at 1640, Until Discontinu ed, 10 mL [facility] traMADoL (ULTRAM) tablet 50 mg 01-27 21:40: 04 Yes 50mg 50 mg, Oral, Q6HPRN, Starting on 01/27/22 at 1640, Until Discontinu ed, Routine, Pain (scale 4-6) [facility] ALPRAZolam (XANAX) tablet 0.5 mg 01-27 21:39: 34 Yes .5mg 0.5 mg, Oral, TIDPRN, Starting on 01/27/22 at 1639, Until Discontinu ed, Routine, anxiety [facility] morpHINE (4 mg/mL) injection 4 mg 01-27 20:00: 00 01-27 19:03 :00 No 4mg 4 mg, Slow IV Push, ONCE, 1 dose, On [facility] 01/27/22 at 1500, STAT [facility] methocarbam oL (ROBAXIN) tablet 1,000 mg 01-27 16:45: 00 01-27 17:00 :00 No 1000mg 1,000 mg, Oral, ONCE, 1 dose, On 01/27/22 at 1145, BIANCA [facility] NaCl 0.9% (NS) bolus infusion 500 mL 01-27 16:45: 00 01-27 17:57 :00 No 500mL at 999 mL/hr, 500 mL, IV Infusion, ONCE, 1 dose, On 01/27/22 at 1145, STAT [facility] ondansetron (ZOFRAN (PF)) injection 4 mg 01-27 16:45: 00 01-27 16:59 :00 No 4mg 4 mg, Slow IV Push, ONCE, 1 dose, On 01/27/22 at 1145, BIANCA [facility] ketorolac (TORADOL) injection 15 mg 01-27 16:45: 00 01-27 17:00 :00 No 15mg 15 mg, Slow IV Push, ONCE, 1 dose, On 01/27/22 at 1145, [facility] ibuprofen 600 mg tablet TAKE 1 TABLET BY MOUTH EVERY 6 HOURS NEEDED FOR PAIN ibuprofen 600 mg tablet TAKE 1 TABLET BY MOUTH EVERY 6 HOURS NEEDED FOR PAIN No ibuprofen 600 mg tablet TAKE 1 TABLET BY MOUTH EVERY 6 HOURS NEEDED FOR PAIN [facility] lamotrigine ER 100 mg tablet,exte nded release 24 hr TAKE 1 TABLET BY MOUTH DAILY lamotrigine ER 100 mg tablet,exte nded release 24 hr TAKE 1 TABLET BY MOUTH DAILY No lamotrigin e ER 100 mg tablet,ext ended release 24 hr TAKE 1 TABLET BY MOUTH DAILY [facility] lamotrigine ER 300 mg tablet,exte nded release 24 hr TAKE 1 TABLET BY MOUTH DAILY lamotrigine ER 300 mg tablet,exte nded release 24 hr TAKE 1 TABLET BY MOUTH DAILY No lamotrigin e ER 300 mg tablet,ext ended release 24 hr TAKE 1 TABLET BY MOUTH DAILY [facility] metformin 1,000 mg tablet metformin 1,000 mg tablet No metformin 1,000 mg tablet [facility] mirtazapine 15 mg tablet TAKE 1 TABLET BY MOUTH DAILY AT BEDTIME mirtazapine 15 mg tablet TAKE 1 TABLET BY MOUTH DAILY AT BEDTIME No mirtazapin e 15 mg tablet TAKE 1 TABLET BY MOUTH DAILY AT BEDTIME [facility] Ozempic 0.25 mg or 0.5 mg (2 mg/3 mL) subcutaneou s pen injector INJECT 0.5 MG UNDER THE SKIN EVERY WEEK Ozempic 0.25 mg or 0.5 mg (2 mg/3 mL) subcutaneou s pen injector INJECT 0.5 MG UNDER THE SKIN EVERY WEEK No Ozempic 0.25 mg or 0.5 mg (2 mg/3 mL) subcutaneo us pen injector INJECT 0.5 MG UNDER THE SKIN EVERY WEEK [facility] propranolol 20 mg tablet propranolol 20 mg tablet No propranolo l 20 mg tablet [facility] Tresiba FlexTouch U-200 insulin 200 unit/mL (3 mL) subcutaneou s pen INJECT 22 UNITS UNDER THE SKIN EVERY NIGHT Tresiba FlexTouch U-200 insulin 200 unit/mL (3 mL) subcutaneou s pen INJECT 22 UNITS UNDER THE SKIN EVERY NIGHT No Tresiba FlexTouch U-200 insulin 200 unit/mL (3 mL) subcutaneo us pen INJECT 22 UNITS UNDER THE SKIN EVERY NIGHT [facility] Nystop 100,000 unit/gram topical powder APPLY TOPICALLY TO THE AFFECTED AREA TWICE DAILY Nystop 100,000 unit/gram topical powder APPLY TOPICALLY TO THE AFFECTED AREA TWICE DAILY No Nystop 100,000 unit/gram topical powder APPLY TOPICALLY TO THE AFFECTED AREA TWICE DAILY [facility] TechLITE Pen Needle 32 gauge x 1/4" USE 1 PEN NEEDLE 1 TIME EACH DAY TechLITE Pen Needle 32 gauge x 1/4" USE 1 PEN NEEDLE 1 TIME EACH DAY No TechLITE Pen Needle 32 gauge x 1/4" USE 1 PEN NEEDLE 1 TIME EACH DAY [facility] True Metrix Air Glucose Meter True Metrix Air Glucose Meter No True Metrix Air Glucose Meter [facility] True Metrix Glucose Test Strip True Metrix Glucose Test Strip No True Metrix Glucose Test Strip [facility] TRUEplus Lancets 33 gauge TRUEplus Lancets 33 gauge No TRUEplus Lancets 33 gauge [facility] dexlansopra zole 60 mg capsule,bip hase delayed release TAKE 1 CAPSULE BY MOUTH EVERY DAY dexlansopra zole 60 mg capsule,bip hase delayed release TAKE 1 CAPSULE BY MOUTH EVERY DAY No dexlansopr azole 60 mg capsule,bi phase delayed release TAKE 1 CAPSULE BY MOUTH EVERY DAY [facility] duloxetine 30 mg capsule,del ayed release TAKE 1 CAPSULE BY MOUTH DAILY duloxetine 30 mg capsule,del ayed release TAKE 1 CAPSULE BY MOUTH DAILY No duloxetine 30 mg capsule,de layed release TAKE 1 CAPSULE BY MOUTH DAILY [facility] ondansetron HCl 8 mg tablet TAKE 1 TABLET BY MOUTH DAILY NEEDED FOR NAUSEA ondansetron HCl 8 mg tablet TAKE 1 TABLET BY MOUTH DAILY NEEDED FOR NAUSEA No ondansetro n HCl 8 mg tablet TAKE 1 TABLET BY MOUTH DAILY NEEDED FOR NAUSEA [facility] Vraylar 3 mg capsule TAKE 1 CAPSULE BY MOUTH DAILY Vraylar 3 mg capsule TAKE 1 CAPSULE BY MOUTH DAILY No Vraylar 3 mg capsule TAKE 1 CAPSULE BY MOUTH DAILY [facility] albuterol sulfate HFA 90 mcg/actuati on aerosol inhaler INHALE 2 PUFFS BY MOUTH EVERY 6 HOURS NEEDED FOR WHEEZING/ SHORTNESS OF BREATH albuterol sulfate HFA 90 mcg/actuati on aerosol inhaler INHALE 2 PUFFS BY MOUTH EVERY 6 HOURS NEEDED FOR WHEEZING/ SHORTNESS OF BREATH No albuterol sulfate HFA 90 mcg/actuat ion aerosol inhaler INHALE 2 PUFFS BY MOUTH EVERY 6 HOURS NEEDED FOR WHEEZING/ SHORTNESS OF BREATH [facility] ergocalcife rol (vitamin D2) 1,250 mcg (50,000 unit) capsule TAKE 1 CAPSULE BY MOUTH 1 TIME EVERY WEEK ergocalcife rol (vitamin D2) 1,250 mcg (50,000 unit) capsule TAKE 1 CAPSULE BY MOUTH 1 TIME EVERY WEEK No ergocalcif anastasia (vitamin D2) 1,250 mcg (50,000 unit) capsule TAKE 1 CAPSULE BY MOUTH 1 TIME EVERY WEEK [facility] Immunizations Ordered Immunization Name Filled Immunization Name Date Status Comments Source Influenza Virus Vaccine Quad IM, Preserv and ABX Free 6 MO-64 YRS (FLUCELVAX) 2023-08-13 00:00:00 Completed [facility] Influenza Virus Vaccine Quad IM, Preserv and ABX Free 6 MO-64 YRS (FLUCELVAX) Unknown Completed [facility] Influenza Virus Vaccine Quad IM, Preserv and ABX Free 6 MO-64 YRS (FLUCELVAX) Unknown Completed [facility] Influenza Virus Vaccine Quad IM, Preserv and ABX Free 6 MO-64 YRS (FLUCELVAX) Unknown Completed [facility] Influenza Virus Vaccine Quad IM, Preserv and ABX Free 6 MO-64 YRS (FLUCELVAX) Unknown Completed [facility] Vital Signs Vital Name Observation Time Observation Value Comments S ource BP Diastolic 2024-10-28 00:00:00 89 mm[Hg] [facility] Height 2024-10-28 00:00:00 63 [in_i] [facility] BP Systolic 2024-10-28 00:00:00 155 mm[Hg] [facility] Systolic blood pressure 2024-09-30 19:09:00 151 mm[Hg] [facility] Diastolic blood pressure 2024-09-30 19:09:00 91 mm[Hg] [facility] Heart rate 2024-09-30 19:09:00 94 /min [facility] Respiratory rate 2024-09-30 18:59:00 17 /min [facility] Body height 2024-09-30 18:59:00 157.5 cm [facility] Body weight 2024-09-30 18:59:00 82.237 kg [facility] BMI 2024-09-30 18:59:00 33.16 kg/m2 [facility] Height 2024-08-21 00:00:00 63 [in_i] [facility] BP Systolic 2024-08-21 00:00:00 128 mm[Hg] [facility] Body Weight 2024-08-21 00:00:00 183.4 [lb_av] [facility] BMI (Body Mass Index) 2024-08-21 00:00:00 32.5 kg/m2 [facility] BP Diastolic 2024-08-21 00:00:00 88 mm[Hg] [facility] Height 2024-07-30 00:00:00 63 [in_i] [facility] BP Systolic 2024-07-30 00:00:00 138 mm[Hg] [facility] Body Weight 2024-07-30 00:00:00 183.4 [lb_av] [facility] BMI (Body Mass Index) 2024-07-30 00:00:00 32.5 kg/m2 [facility] BP Diastolic 2024-07-30 00:00:00 85 mm[Hg] [facility] Height 2024-06-04 00:00:00 63 [in_i] [facility] BP Diastolic 2024-06-04 00:00:00 62 mm[Hg] [facility] BMI (Body Mass Index) 2024-06-04 00:00:00 14.7 kg/m2 [facility] BP Systolic 2024-06-04 00:00:00 130 mm[Hg] [facility] Body Weight 2024-06-04 00:00:00 83 [lb_av] [facility] Systolic blood pressure 2023-08-13 15:03:00 160 mm[Hg] [facility] Diastolic blood pressure 2023-08-13 15:03:00 90 mm[Hg] [facility] Heart rate 2023-08-13 15:03:00 75 /min [facility] Respiratory rate 2023-08-13 15:03:00 18 /min [facility] Oxygen saturation in Arterial blood by Pulse oximetry 2023-08-13 15:03:00 98 /min [facility] Body temperature 2023-08-13 15:01:00 36.5 Melisa [facility] Body height 2023-08-13 15:01:00 160 cm [facility] Body weight 2023-08-13 15:01:00 83.235 kg [facility] BMI 2023-08-13 15:01:00 32.51 kg/m2 [facility] Systolic blood pressure 2023-08-01 19:21:00 143 mm[Hg] [facility] Diastolic blood pressure 2023-08-01 19:21:00 91 mm[Hg] [facility] Heart rate 2023-08-01 19:21:00 92 /min [facility] Body height 2023-08-01 19:21:00 160 cm [facility] Body weight 2023-08-01 19:21:00 80.74 kg [facility] BMI 2023-08-01 19:21:00 31.53 kg/m2 [facility] Oxygen saturation in Arterial blood by Pulse oximetry 2023-08-01 19:21:00 98 /min [facility] Systolic blood pressure 2023-05-28 17:03:00 136 mm[Hg] [facility] Diastolic blood pressure 2023-05-28 17:03:00 84 mm[Hg] [facility] Heart rate 2023-05-28 16:59:00 91 /min [facility] Respiratory rate 2023-05-28 16:59:00 18 /min [facility] Body height 2023-05-28 16:59:00 160 cm [facility] Body weight 2023-05-28 16:59:00 81.647 kg [facility] BMI 2023-05-28 16:59:00 31.89 kg/m2 [facility] Oxygen saturation in Arterial blood by Pulse oximetry 2023-05-28 16:59:00 98 /min [facility] Systolic blood pressure 2023-04-18 18:42:00 138 mm[Hg] [facility] Diastolic blood pressure 2023-04-18 18:42:00 78 mm[Hg] [facility] Heart rate 2023-04-18 18:42:00 84 /min [facility] Body height 2023-04-18 18:42:00 160 cm [facility] Body weight 2023-04-18 18:42:00 80.06 kg [facility] BMI 2023-04-18 18:42:00 31.27 kg/m2 [facility] Oxygen saturation in Arterial blood by Pulse oximetry 2023-04-18 18:42:00 98 /min [facility] Systolic blood pressure 2023-03-25 16:03:00 138 mm[Hg] [facility] Diastolic blood pressure 2023-03-25 16:03:00 89 mm[Hg] [facility] Heart rate 2023-03-25 16:03:00 66 /min [facility] Respiratory rate 2023-03-25 16:03:00 22 /min [facility] Body height 2023-03-25 16:03:00 160 cm [facility] Body weight 2023-03-25 16:03:00 77.792 kg [facility] BMI 2023-03-25 16:03:00 30.38 kg/m2 [facility] Oxygen saturation in Arterial blood by Pulse oximetry 2023-03-25 16:03:00 96 /min [facility] Systolic blood pressure 2022-02-01 21:21:00 138 mm[Hg] [facility] Diastolic blood pressure 2022-02-01 21:21:00 88 mm[Hg] [facility] Heart rate 2022-02-01 21:21:00 66 /min [facility] Body temperature 2022-02-01 21:21:00 37.61 Melisa [facility] Respiratory rate 2022-02-01 21:21:00 18 /min [facility] Oxygen saturation in Arterial blood by Pulse oximetry 2022-02-01 21:21:00 99 /min [facility] Body height 2022-01-27 14:45:00 160 cm [facility] Body weight 2022-01-27 14:45:00 79.379 kg [facility] BMI 2022-01-27 14:45:00 31.00 kg/m2 [facility] Systolic blood pressure 2022-01-31 16:27:00 129 mm[Hg] [facility] Diastolic blood pressure 2022-01-31 16:27:00 78 mm[Hg] [facility] Heart rate 2022-01-31 16:27:00 77 /min [facility] Body temperature 2022-01-31 16:27:00 36.61 Melisa [facility] Oxygen saturation in Arterial blood by Pulse oximetry 2022-01-31 16:27:00 100 /min [facility] Respiratory rate 2022-01-31 07:59:00 16 /min [facility] Body height 2022-01-27 14:45:00 160 cm [facility] Body weight 2022-01-27 14:45:00 79.379 kg [facility] BMI 2022-01-27 14:45:00 31.00 kg/m2 [facility] Procedures Procedure Date / Time Performed Performing Clinician Source Cholecystectomy 2024-10-10 00:00:00 [facility] US TRANSVAGINAL 2024-06-04 00:00:00 [facility] FLU VACC ([id number]), 6 MO-64 YRS, .5ML, IM, QUAD (FLUCELVAX) 2023-08-13 15:05:59 Caitlin Hinojosa [facility] REFERRAL- REQUEST/RESPONSE 2023-07-31 06:01:00 Sari alcantar Unassigned, [facility] MEDICAL RELEASE/CLEARANCE FORMS 2023-07-24 06:01:00 Doctor Unassigned, [facility] CT HEAD WO CONTRAST 2023-07-12 19:20:11 Casey Santoro [facility] CT LOW DOSE LUNG NODULE 2023-07-12 19:19:56 Deanna Chang [facility] PULMONARY FUNCTION TEST (RESULTS) 2023-07-10 14:02:02 Feli Chang [facility] MEDICAL RELEASE/CLEARANCE FORMS 2023-06-10 05:01:00 Doctor Unassigned, [facility] TRANSTHORACIC ECHO (TTE) COMPLETE 2023-05-27 20:39:00 Rosy Borja [facility] REFERRAL- REQUEST/RESPONSE 2023-05-24 05:01:00 D octor Unassigned, [facility] HB ECG ROUTINE & RHYTHM STRIP 2023-04-18 18:44:42 Rosy Borja [facility] AUTHORIZATION TO RELEASE PHI TO [facility] 2023-04-18 05:01:00 Doctor Unassigned, [facility] CONSENT/REFUSAL FOR DIAGNOSIS AND TREATMENT 2023-03-25 15:27:16 Doctor Unassigned, [facility] AUTHORIZATION FOR RELEASE OF PHI 2023-03-21 05:01:00 Doctor Unassigned, [facility] EXTERNAL PROVIDER - ADC REFERRAL 2023-03-19 05:01:00 Doctor Unassigned, [facility] REFERRAL- REQUEST/RESPONSE 2023-01-21 05:01:00 D octor Unassigned, [facility] AUTHORIZATION FOR RELEASE OF PHI 2022-03-13 05:01:00 Doctor Unassigned, [facility] POCT GLUCOSE (AUTOMATED) 2022-02-01 21:23:00 Fortunato Fischer [facility] POCT GLUCOSE (AUTOMATED) 2022-02-01 16:36:00 Fortunato Fischer [facility] POCT GLUCOSE (AUTOMATED) 2022-02-01 12:38:00 Fortunato Fischer [facility] FERRITIN SERUM 2022-02-01 11:33:00 Donato Desir [facility] IRON PANEL 2022-02-01 11:33:00 Donato Desir [facility] POCT GLUCOSE (AUTOMATED) 2022-02-01 02:55:00 Fortunato Fischer [facility] POCT GLUCOSE (AUTOMATED) 2022-02-01 01:54:00 [facility] 2022-01-31 22:20:00 Jorge [facility] POCT GLUCOSE (AUTOMATED) 2022-01-31 17:41:00 [facility] (AUTOMATED) 2022-01-31 13:02:00 Jorge [facility] POCT GLUCOSE (AUTOMATED) 2022-01-31 13:02:00 Jorge [facility] POCT GLUCOSE (AUTOMATED) 2022-01-31 01:50:00 Jorge [facility] POCT GLUCOSE (AUTOMATED) 2022-01-31 01:50:00 Jorge [facility] POCT GLUCOSE (AUTOMATED) 2022-01-30 22:49:00 Jorge [facility] POCT GLUCOSE (AUTOMATED) 2022-01-30 22:49:00 Jorge [facility] POCT GLUCOSE (AUTOMATED) 2022-01-30 18:02:00 Jorge [facility] POCT GLUCOSE (AUTOMATED) 2022-01-30 18:02:00 Jorge [facility] POCT GLUCOSE (AUTOMATED) 2022-01-30 13:16:00 Jorge [facility] POCT GLUCOSE (AUTOMATED) 2022-01-30 13:16:00 Jorge [facility] POCT GLUCOSE (AUTOMATED) 2022-01-30 02:17:00 Jorge [facility] POCT GLUCOSE (AUTOMATED) 2022-01-30 02:17:00 Jorge [facility] POCT GLUCOSE (AUTOMATED) 2022-01-29 21:10:00 Jorge [facility] POCT GLUCOSE (AUTOMATED) 2022-01-29 21:10:00 Jorge [facility] IR SPINAL LUMBAR PUNCTURE DIAGNOSTIC 2022-01-29 20:13[facility] 2022-01-29 20:13:10 Vaibhav, [facility] POCT GLUCOSE (AUTOMATED) 2022-01-29 17:11:00 Fortunato Fischer [facility] POCT GLUCOSE (AUTOMATED) 2022-01-29 17:11:00 [facility] (AUTOMATED) 2022-01-29 12:27:00 [facility]SE (AUTOMATED) 2022-01-29 12:27:00 Fortunato Fischer [facility] CBC WITH DIFF 2022-01-29 11:05:00 Criss Ibarra Ericka [facility] CBC WITH DIFF 2022-01-29 11:05:00 Criss Ibarra Ericka [facility] BASIC METABOLIC PANEL (NA, K, CL, CO2, GLUCOSE, BUN, CREATININE, CA) 2022-01-29 11:04:00 Nafisa Ibarra [facility] PROTHROMBIN TIME / INR 2022-01-29 11:04:00 Teresowo rth [facility] ACTIVATED PARTIAL THRMPLAS PITER 2022-01-29 11:04:00 Nafisa Ibarra [facility] BASIC METABOLIC PANEL (NA, K, CL, CO2, GLUCOSE, BUN, CREATININE, CA) 2022-01-29 11:04:00 Nafisa Ibarra [facility] PROTHROMBIN TIME / INR 2022-01-29 11:04:00 Teresowo rth, [facility] ACTIVATED PARTIAL THRMPLAS PITER 2022-01-29 11:04:00 Nafisa Ibarra [facility] POCT GLUCOSE (AUTOMATED) 2022-01-29 02:37:00 Jorge [facility] POCT GLUCOSE (AUTOMATED) 2022-01-29 02:37:00 Jorge [facility] POCT GLUCOSE (AUTOMATED) 2022-01-28 21:16:00 Jorge [facility] POCT GLUCOSE (AUTOMATED) 2022-01-28 21:16:00 Jorge [facility] POCT GLUCOSE (AUTOMATED) 2022-01-28 17:41:00 Jorge [facility] POCT GLUCOSE (AUTOMATED) 2022-01-28 17:41:00 Fortunato Fischer [facility] CT ABDOMEN PELVIS W CONTRAST 2022-01-28 05:47:13 Karlee [facility] CT ABDOMEN PELVIS W CONTRAST 2022-01-28 05:47:13 Karlee [facility] POCT GLUCOSE (AUTOMATED) 2022-01-28 01:56:00 Jorge [facility] POCT GLUCOSE (AUTOMATED) 2022-01-28 01:56:00 Jorge [facility] LIPASE 2022-01-27 16:47:00 Aryan Fay [facility] COMP. METABOLIC PANEL ([id number]) 2022-01-27 16:47:00 Aryan Fay [facility] CBC WITH DIFF 2022-01-27 16:47:00 Aryan Fay [facility] CBC WITH DIFF 2022-01-27 16:47:00 Aryan Fay [facility] COMP. METABOLIC PANEL ([id number]) 2022-01-27 16:47:00 Aryan Fay [facility] LIPASE 2022-01-27 16:47:00 Aryan Fay [facility] CT HEAD WO CONTRAST 2022-01-27 16:23:00 Aryan Fay [facility] CT HEAD WO CONTRAST 2022-01-27 16:23:00 Aryan Fay [facility] XR SHUNT SERIES 2022-01-27 16:22:00 Aryan Fay [facility] XR SHUNT SERIES 2022-01-27 16:22:00 Aryan Fay [facility] POCT TEST 2022-01-27 16:05:00 Aryan Fay [facility] POCT TEST 2022-01-27 16:05:00 Aryan Fay [facility] URINALYSIS 2022-01-27 16:02:00 Aryan Fay [facility] URINALYSIS 2022-01-27 16:02:00 Aryan Fay [facility] COVID-19 (ID NOW RAPID TESTING) 2022-01-27 16:01:00 Aryan Fay [facility] LAB ONLY COVID INTERPRETATION 2022-01-27 16:01:00 Aryan Fay [facility] COVID-19 (ID NOW RAPID TESTING) 2022-01-27 16:01:00 Aryan Fay [facility] LAB ONLY COVID INTERPRETATION 2022-01-27 16:01:00 Aryan Fay [facility] NOTICE OF PRIVACY PRACTICES 2022-01-27 14:33:26 Doctor Unassigned, [facility] NOTICE OF PRIVACY PRACTICES 2022-01-27 14:33:26 Doctor Unassigned, [facility] CONSENT/REFUSAL FOR DIAGNOSIS AND TREATMENT 2022-01-27 14:30:23 Doctor Unassigned, [facility] CONSENT/REFUSAL FOR DIAGNOSIS AND TREATMENT 2022-01-27 14:30:23 Doctor Unassigned, [facility] HOSPITAL ADMISSION 2022-01-27 05:01:00 Doctor Un assigned, [facility] ADMISSION 2022-01-27 05:01:00 Doctor Un assigned, [facility] Laparoscopic Sleeve Gastrectomy [facility] Encounters Start Date/Time End Date/Time Encounter Type Admission Type Attending [facility] Care Department Encounter ID Source 2024-11-19 00:00:00 2024-11-19 00:00:00 Kati Arrington, RADIOLOGICAL DEFENSE OFFICER: [address], [facility] [address], [place] [address] , Ph. Formerly [facility], [facility]–1983 - GC_GCBZW_[facility]* [id number] [facility] 2024-11-12 09:00:00 2024-11-12 09:00:00 Outpatient SIVAN KUMAR CHOCKALINGA M [facility] [id number] [facility] 2024-10-29 08:00:00 2024-10-29 08:00:00 Outpatient R SIVAN CAMPOS Cara SIVAN CAMPOS [facility] [id number] [facility] 2024-10-28 00:00:00 2024-10-28 00:00:00 Melani Joshua MD: [address], [address], [place] [address] , Ph. Formerly [facility], [facility] - GC_GCBZW_[place]* [id number] [facility] 2024-09-30 13:00:00 2024-09-30 13:27:12 Outpatient R ROSY BORJA [facility] [id number] [facility] 2024-09-30 13:00:00 2024-09-30 13:27:12 Office Visit Rosy Borja [facility] [id number] [facility] 2024-09-28 00:00:00 2024-09-28 11:00:02 Telephone Rosy Borja [facility] [id number] [facility] 2024-09-01 00:00:00 2024-09-01 00:00:00 ZARIA Stuart: [address], [address], [place] [address] , Ph. Formerly [facility], [facility]–1983 - GC_GCBZW_Angella [facility]* [id number] [facility] 2024-08-21 00:00:00 2024-08-21 00:00:00 Melani Joshua MD: [address], [address], [place] [address] , Ph. Formerly [facility], [facility] - GC_GCBZW_Angella Fish* [id number] [facility] 2024-07-30 00:00:00 2024-07-30 00:00:00 MANA Mendoza: [address], [address], [place] [address] , Ph. Formerly [facility], [facility] - GC_GCBZW_Angella Fish* [id number] [facility] 2024-07-13 00:00:00 2024-07-13 00:00:00 Outpatient FELI VALENCIA SHIWAN [facility] [id number] [facility] 2024-06-18 00:00:00 2024-06-18 00:00:00 MANA Mendoza: [address], [address], [place] [address] , Ph. Formerly [facility], [facility] - GC_GCBZW_Angella hackett Abe* [id number] [facility] 2024-06-04 00:00:00 2024-06-04 00:00:00 LARISSA BaeP: [address], [address], [place] [address] , Ph. Formerly [facility], [facility]–1983 - GC_GCBZW_Angella Fish* [id number] [facility] 2024-06-01 00:00:00 2024-06-01 13:46:33 Telephone Feli Chang [facility] [id number] [facility] 2024-01-24 09:00:00 2024-01-24 09:00:00 Outpatient FELI VALENCIA SHIWAN [facility] [id number] [facility] 2024-01-16 00:00:00 2024-01-20 09:27:58 [facility] [id number] [facility] 2023-12-26 15:00:00 2023-12-26 15:00:00 Outpatient R TAINA SHORT [facility] [id number] [facility] 2023-11-27 14:00:00 2023-11-27 14:00:00 Outpatient R TAINA SHORT [facility] [id number] [facility] 2023-10-21 13:40:00 2023-10-21 13:40:00 Outpatient ROBI CABEZAS HOWARD [facility] [id number] [facility] 2023-10-14 13:30:00 2023-10-14 13:30:00 Outpatient ROSY ISBELL [facility] [id number] [facility] 2023-10-14 00:00:00 2023-10-14 00:00:00 Telephone Rosy Borja [facility] [id number] [facility] 2023-10-09 11:20:41 2023-10-09 23:59:00 Outpatient ROSY ISBELL [facility] [id number] [facility] 2023-10-09 11:20:41 2023-10-09 23:59:00 Hospital Encounter Rosy Borja [facility] [id number] [facility] 2023-10-08 13:00:00 2023-10-08 13:00:00 Outpatient R ROBI SANTORO HOWARD [facility] [id number] [facility] 2023-10-02 13:30:00 2023-10-02 13:30:00 Outpatient R ROSY BORJA [facility] [id number] [facility] 2023-10-01 10:00:00 2023-10-01 10:00:00 Out[facility] [id number] [facility] 2023-08-28 00:00:00 2023-08-28 00:00:00 Outpatient R ROSY BORJA [facility] [id number] [facility] 2023-08-14 15:00:00 2023-08-14 15:00:00 Outpatient R [facility]INA SHORT [facility] [id number] [facility] 2023-08-13 09:00:00 2023-08-13 09:36:32 Outpatient R FELI CHANG SHIWAN [facility] [id number] [facility] 2023-08-13 09:00:00 2023-08-13 09:36:32 Office Visit Feli Chang [facility] [id number] [facility] 2023-08-01 13:30:00 2023-08-01 13:53:06 Outpatient R ROSY BORJA [facility] [id number] [facility] [facility] 13:30:00 2023-08-01 13:53:06 Office Visit Rosy Borja [facility] 1.2.840.114 350.1.13.10 4.2.7.2.686 [id number] [facility] 2023-07-31 00:00:00 2023-07-31 00:00:00 Orders Only Doctor Unassigned, Micro [facility] 1.2840.114 350.1.13.10 4.2.7.2.686 [id number] [id number] [facility] 2023-07-29 15:30:00 2023-07-29 15:30:00 Outpatient R ROSY BORJA [facility] [id number] [facility] 2023-07-24 00:00:00 2023-07-24 00:00:00 Orders Only Doctor Unassigned, Micro [facility] 1.2.840.114 350.1.13.10 4.2.7.2.686 [id number] [id number] [facility] 2023-07-19 00:00:00 2023-07-19 00:00:00 Telephone Rosy Borja [facility] 1.2840.114 350.1.13.10 4.2.7.2.686 [id number] [facility] 2023-07-12 12:56:49 2023-07-12 23:59:00 Hospital Encounter Robi Santoro [facility] 1.2840.114 350.1.13.10 4.2.7.2.686 [id number] [facility] 2023-07-12 12:56:10 2023-07-12 23:59:00 Outpatient R FELI CHANG SHIWAN [facility] [id number] [facility] 2023-07-12 12:56:10 2023-07-12 23:59:00 Hospital Encounter Feli Chang [facility] 1.2.840.114 350.1.13.10 4.2.7.2.686 [id number] [facility] 2023-07-10 08:00:00 2023-07-10 09:33:33 Outpatient R ADRI CHANGJuan LEATHA CHANGIAJuan [facility] [id number] [facility] 2023-07-10 08:00:00 2023-07-10 09:33:33 Cured Meats Supervisor Visit Therapist, Adc Respiratory Feli Chang [facility] 1.0.114 350.1.13.10 4.2.7.2.686 [id number] [facility] 2023-07-10 00:00:00 2023-07-10 00:00:00 Orders Only Adri Changjuan [facility] 1..114 350.1.13.10 4.2.7.2.686 [id number] [id number] [facility] 2023-06-10 14:00:00 2023-06-10 14:00:00 Outpatient ROSY ISBELL [facility] [id number] [facility] 2023-06-10 00:00:00 2023-06-10 00:00:00 Orders Only Doctor Unassigned, Micro [facility] 1..114 350.1.13.10 4.2.7.2.686 [id number] [id number] [facility] 2023-06-05 00:00:00 2023-06-05 00:00:00 Telephone Rosy Borja [facility] 1.84.114 350.1.13.10 4.2.7.2.686 [id number] 059 [id number] [facility] 2023-05-28 12:20:00 2023-05-28 12:59:05 Outpatient ROBI CABEZAS HOWARD [facility] [id number] [facility] 2023-05-28 12:20:00 2023-05-28 12:59:05 Office Visit Robi Santoro [facility] 1.840.114 350.1.13.10 4.2.7.2.686 [id number] [id number] [facility] 2023-05-28 00:00:00 2023-05-28 00:00:00 Telephone Rosy Borja [facility] 1.2.840.114 350.1.13.10 4.2.7.2.686 [id number] 059 [id number] [facility] 2023-05-27 15:36:48 2023-05-27 23:59:00 Hospital Encounter Roys Borja [facility] 1.2840.114 350.1.13.10 4.2.7.2.686 [id number] [facility] 2023-05-27 14:44:45 2023-05-27 15:35:00 Outpatient R ROSY BORJA [facility] [id number] [facility] 2023-05-27 14:44:45 2023-05-27 15:35:00 Hospital Encounter Rosy Borja [facility] 1.2840.114 350.1.13.10 4.2.7.2.686 [id number] [facility] 2023-05-24 00:00:00 2023-05-24 00:00:00 Orders Only Doctor Unassigned, Micro [facility] 1.2.840.114 350.1.13.10 4.2.7.2.686 [id number] [id number] [facility] 2023-05-24 00:00:00 2023-05-24 00:00:00 Telephone Robi Santoro [facility] 1.2840.114 350.1.13.10 4.2.7.2.686 [id number] [facility] 2023-05-20 09:30:00 2023-05-20 09:30:00 Outpatient R [facility] [id number] [facility] 2023-05-13 00:00:00 2023-05-13 00:00:00 Telephone Rosy Borja [facility] 1..840.114 350.1.13.10 4.2.7.2.686 [id number] [id number] [facility] 2023-05-09 15:30:00 2023-05-09 15:30:00 Outpatient R ROSY BORJA [facility] [id number] [facility] 2023-04-19 00:00:00 2023-04-19 00:00:00 Telephone Rosy Borja [facility] 1..840.114 350.1.13.10 4.2.7.2.686 [id number] [facility] 2023-04-18 13:30:00 2023-04-18 15:53:05 Outpatient R ROSY BORJA [facility] [id number] [facility] 2023-04-18 13:30:00 2023-04-18 15:53:05 Office Visit Rosy Borja [facility] 1.2.840.114 350.1.13.10 4.2.7.2.686 [id number] [facility] 2023-04-18 00:00:00 2023-04-18 00:00:00 Orders Only Doctor Unassigned, Micro [facility] 1..840.114 350.1.13.10 4.2.7.2.686 [id number] [facility] 2023-04-09 00:00:00 2023-04-09 00:00:00 Outpatient R FELI CHANG SHIWAN [facility] [id number] [facility] 2023-04-08 00:00:00 2023-04-08 00:00:00 Letter (Out) Mis [place] [facility] 1.2.840.114 350.1.13.10 4.2.7.2.686 [id number] [facility] 2023-03-25 10:30:00 2023-03-25 11:18:14 Outpatient R FELI CHANG SHIIAJuan [facility] [id number] [facility] 2023-03-25 10:30:00 2023-03-25 11:18:14 Office Visit Feli Chang [facility] 1.2840.114 350.1.13.10 4.2.7.2.686 [id number] [facility] 2023-03-25 00:00:00 2023-03-25 00:00:00 Orders Only Doctor Unassigned, Micro [facility] 1.2.840.114 350.1.13.10 4.2.7.2.686 [id number] [id number] [facility] 2023-03-21 00:00:00 2023-03-21 00:00:00 Orders Only Doctor Unassigned, Micro [facility] 1.2.840.114 350.1.13.10 4.2.7.2.686 [id number] 009 [id number] [facility] 2023-03-19 00:00:00 2023-03-19 00:00:00 Orders Only Doctor Unassigned, Micro [facility] 1.2.840.114 350.1.13.10 4.2.7.2.686 [id number] [id number] [facility] 2023-01-21 00:00:00 2023-01-21 00:00:00 Orders Only Doctor Unassigned, Micro [facility] 1.2840.114 350.1.13.10 4.2.7.2.686 [id number] [id number] [facility] 2022-04-26 00:00:00 2022-04-26 00:00:00 Telephone Fortunato Fischer [facility] 1.2.840.114 350.1.13.10 4.2.7.2.686 [id number] [facility] 2022-03-13 00:00:00 2022-03-13 00:00:00 Orders Only Doctor Unassigned, Micro [facility] 1.2.840.114 350.1.13.10 4.2.7.2.686 [id number] [id number] [facility] 2022-02-02 00:00:00 2022-02-02 00:00:00 Transition of Care [facility] 1.2840.114 350.1.13.10 4.2.7.2.686 [id number] [facility] 2022-01-27 09:47:00 2022-02-01 19:29:00 Hospital Encounter Aryan Fay [facility] 1.2.840.114 350.1.13.10 4.2.7.2.686 [id number] [facility] 2022-01-27 09:47:00 2022-02-01 19:29:00 Inpatient X FORTUNATO FISCHER [facility] ANNMARIE [id number] [facility] 2022-01-27 00:00:00 2022-01-27 00:00:00 Travel 1.2.840.1 06041.1.1 3.104.2.7 .3.951551 .8 1.2.840.114 350.1.13.10 4.2.7.3.698 [id number] [facility] Results Test Description Test Time Test Comments Results Result Co mments Source [facility] MedicalFollitropin [Units/volume] in Serum or [id number] 00:00:00* Test Item Value Reference Range Interpretation Comme nts Follitropin [Units/volume] i n Serum or Plasma (test code = 23775-1) 23.0 mIU/mL [facility] MedicalThyrotropin [Units/volume] in Serum or [id number] 00:00:00* Test Item Value Reference Range Interpretation Comme nts Thyrotropin [Units/volume] i n Serum or Plasma (test code = 3016-3) 2.05 mIU/L [facility] Medicalinfectious disease [id number] 00:00:00* Test Item Value Reference Range Interpretation Comme nts atopobium vaginae (test code = atopobium vaginae) 16.790 ppm 19.961-24.689 A bvab 2,3 (bacterial vaginosi s associated bacteria 2, 3); mobiluncus spp (test code = bvab 2,3 (bacterial vaginosis associated bacteria 2, 3); mobiluncus spp) 23.735 ppm 19.961-24.689 A angeline albicans, parapsilos is, tropicalis (test code = angeline albicans, parapsilosis, tropicalis) 0.000 ppm 19.961-30.770 angeline glabrata (nakaseomyc es glabratus) (test code = angeline glabrata (nakaseomyces glabratus)) 0.000 ppm 23.000-32.138 angeline krusei (pichia kudriavzevii) (test code = angeline krusei (pichia kudriavzevii)) 0.000 ppm 23.000-32.271 chlamydia trachomatis (test code = chlamydia trachomatis) 0.000 ppm 23.000-31.467 gardnerella vaginalis (test code = gardnerella vaginalis) 22.430 ppm 19.961-24.689 A herpes simplex virus 1 (test code = herpes simplex virus 1) 0.000 ppm 23.000-32.355 herpes simplex virus 2 (test code = herpes simplex virus 2) 0.000 ppm 23.000-31.433 megasphaera (types 1, 2) (te st code = megasphaera (types 1, 2)) 0.000 ppm 19.961-24.689 neisseria gonorrhoeae (test code = neisseria gonorrhoeae) 0.000 ppm 23.000-32.117 trichomonas vaginalis (test code = trichomonas vaginalis) 0.000 ppm 23.000-32.119 ermb, C; mefa (test code = e rmb, C; mefa) 17.629 ppm 23.000-27.611 A tet B, tet M (test code = te t B, tet M) 17.746 ppm 23.000-27.778 [facility] 14:02:02* Test Item Value Reference Range Interpretation Comme nts FVC Actual (test code = 3994) 3.47 L FEV1 Actual (test code = 3993) 2.63 L FEV1/FVC Actual (test code = 3995) 76 % [facility] 01:18:38* Test Item Value Reference Range Interpretation Comme nts Height (test code = 6954818990) 63 in Weight (test code = 7496990769) 176 lbs Systolic BP (test code = 3278171438) 132 mmHg Diastolic BP (test code = 6669617412) 68 mmHg Heart Rate (test code = 7090775023) 79 bpm MR max PG (test code = 5696172982) 102.70 mm[Hg] MR max jama (test code = 5235312534) 506.60 cm/s Ao root diam (test code = 8156158542) 3.20 cm Mr max jama (test code = 2115353601) 506.6 m/s Aortic root (test code = 4415453629) 3.2 cm Ao root annulus (test code = 7631575748) 3.2 cm BSA (test code = 9347692996) 1.83 m2 LVOT diameter (test code = 0847409732) 1.90 cm LVOT area (test code = 9288403182) 2.80 cm2 LA size (test code = 7638108616) 3.5 cm ACS (test code = 2881951460) 1.87 cm PV PEAK VELOCITY (test code = 9845139431) 108.5 cm/s PV peak gradient (test code = 4306817955) 4.7 mmHg LVIDD (test code = 8384745406) 4.40 cm Left Ventricular End Diastolic Volume by Teichholz Method (test code = 4632536) 87.8 mL IVS (test code = 2251421342) 1.12 cm Interventricular Septum Diastolic Thickness by 2D (test code = 6737728) 1.12 cm LVPWD (test code = 7707273534) 1.11 cm PW (test code = 2186631371) 1.11 cm 0.6-1.1 EF(Teich) (test code = 6677454280) 55.80 % LVIDS (test code = 2878511035) 3.10 cm Left Ventricular End Systolic Volume by Teichholz Method (test code = 4259307) 38.8 mL FS (test code = 5165424862) 29 % EF - 2D (test code = 18034995) 55.80 % LAV(MOD-sp4) (test code = 7324301857) 36.80 mL MV E-F slope (test code = 4176757288) 36.90 cm/s MV Peak E Jama (test code = 5138793532) 110.0 cm/s MV valve area p 1/2 method (test code = 0097918584) 2.41 cm2 MV dec slope (test code = 4144781917) 348.60 cm/s2 MV P1/2t max jama (test code = 6411967777) 108.50 cm/s MV Peak A Jama (test code = 0520067917) 96.9 cm/s E/A ratio (test code = 5725611465) 1.14 ratio LVOT stroke volume (test code = 2902196149) 98.50 cm3 LVOT peak jama (test code = 5319502367) 160.4 cm/s LVOT mn grad (test code = 7100299012) 4.9 mmHg AV LVOT peak gradient (test code = 1333696440) 10.3 mmHg LVOT peak VTI (test code = 6462162456) 34.7 cm LV V1 mean (test code = 8884135332) 101.80 cm/s Aortic valve mean velocity (test code = 9715275575) 122.0 cm/s Ao peak jama (test code = 6457760433) 200.5 cm/s Ao VTI (test code = 5588256289) 40.9 cm AV area by cont VTI (test code = 8930777358) 2.4 cm2 AV area peak jama (test code = 8491491870) 2.3 cm2 Ao max PG (test code = 7422949296) 16.10 mm[Hg] AV peak gradient (test code = 9789373161) 16.1 mmHg AV valve area (test code = 9795401932) 2.41 cm2 AV mean gradient (test code = 3869390484) 7.0 mmHg TR Peak Jama (test code = 8707820023) 227.8 cm/s Triscuspid Valve Regurgitation Peak Gradient (test code = 0919704764) 20.8 mmHg LA Volume Index (BP) (test code = 5097962445) 23.2 mL/m2 LA volume (BP) (test code = 0652570021) 42.4 mL LAV(MOD-sp2) (test code = 2701125011) 42.40 mL Radiology Study observation (narrative) (test code = 89436-7) KEE (test code = KEE) ?Left?Ventricle: Left [...] 2D, color flow Doppler and spectral Doppler. [facility] GLUCOSE (AUTOMATED)2022-02-01 21:24:06* Test Item Value Reference Range Interpretation Comme nts POCT GLU (test code = 4558079347) 172 mg/dL 70-110 H Lab Interpretation (test cod e = 36008-0) Abnormal [facility] GLUCOSE (AUTOMATED)2022-02-01 16:37:31* Test Item Value Reference Range Interpretation Comme nts POCT GLU (test code = 7148666059) 289 mg/dL 70-110 H Lab Interpretation (test cod e = 33455-9) Abnormal [facility] [id number] 14:09:40* Test Item Value Reference Range Interpretation Comme nts FERRITIN (test code = 1280101835) 11.3 ng/mL 6.0-137.0 KEE (test code = KEE) Biotin has been reported to cause a negative bias, interpret results relative to patient's use of biotin. Lab Interpretation (test code = 17638-9) Normal [facility] [id number] 13:42:20* Test Item Value Reference Range Interpretation Comme nts IRON (test code = 8403009352) 39 ug/dL 50-160 L TIBC (test code = 7751144518) 515 ug/dL 250-410 H % FE SAT (test code = 9662910381) 8 % 20-50 L Lab Interpretation (test cod e = 16252-8) Abnormal [facility] GLUCOSE (AUTOMATED)2022-02-01 12:38:56* Test Item Value Reference Range Interpretation Comme nts POCT GLU (test code = 6503218138) 187 mg/dL 70-110 H Lab Interpretation (test cod e = 17063-5) Abnormal [facility] GLUCOSE (AUTOMATED)2022-02-01 02:56:29* Test Item Value Reference Range Interpretation Comme nts POCT GLU (test code = 4897878199) 230 mg/dL 70-110 H Lab Interpretation (test cod e = 76013-0) Abnormal [facility] GLUCOSE (AUTOMATED)2022-02-01 02:11:37* Test Item Value Reference Range Interpretation Comme nts POCT GLU (test code = 7643426712) 235 mg/dL 70-110 H Lab Interpretation (test cod e = 92328-2) Abnormal [facility] GLUCOSE (AUTOMATED)2022-01-31 22:22:00* Test Item Value Reference Range Interpretation Comme nts POCT GLU (test code = 3602324603) 159 mg/dL 70-110 H Notified Provide r Lab Interpretation (test code = 68785-2) [facility] 17:42:16* Test Item Value Reference Range Interpretation Comme nts POCT GLU (test code = 2097530982) 249 mg/dL 70-110 H Notified Provide r Lab Interpretation (test code = 38324-8) Abnormal [facility] GLUCOSE (AUTOMATED)2022-01-31 13:03:21* Test Item Value Reference Range Interpretation Comme nts POCT GLU (test code = 1945532031) 142 mg/dL 70-110 H Notified Provide r Lab Interpretation (test code = 07069-3) Abnormal [facility] GLUCOSE (AUTOMATED)2022-01-31 13:03:21* Test Item Value Reference Range Interpretation Comme nts POCT GLU (test code = 3698006646) 142 mg/dL 70-110 H Notified Provide r Lab Interpretation (test code = 94232-6) [facility]-31 01:51:49* Test Item Value Reference Range Interpretation Comme nts POCT GLU (test code = 8822185119) 183 mg/dL 70-110 H Lab Interpretation (test cod e = 59820-4) Abnormal [facility] GLUCOSE (AUTOMATED)2022-01-30 22:53:01* Test Item Value Reference Range Interpretation Comme nts POCT GLU (test code = 3501809434) 251 mg/dL 70-110 H Lab Interpretation (test cod e = 35297-2) [facility]22-01-30 18:02:53* Test Item Value Reference Range Interpretation Comme nts POCT GLU (test code = 3860702813) 269 mg/dL 70-110 H Lab Interpretation (test cod e = 04786-5) Abnormal [facility] GLUCOSE (AUTOMATED)2022-01-30 13:17:23* Test Item Value Reference Range Interpretation Comme nts POCT GLU (test code = 8031779272) 267 mg/dL 70-110 H Lab Interpretation (test cod e = 34944-5) Abnormal [facility] GLUCOSE (AUTOMATED)2022-01-30 02:19:06* Test Item Value Reference Range Interpretation Comme nts POCT GLU (test code = 1197351186) 176 mg/dL 70-110 H Lab Interpretation (test cod e = 65362-4) Abnormal [facility] GLUCOSE (AUTOMATED)2022-01-29 21:11:48* Test Item Value Reference Range Interpretation Comme nts POCT GLU (test code = 8185667335) 140 mg/dL 70-110 H Lab Interpretation (test cod e = 70372-6) Abnormal [facility] GLUCOSE (AUTOMATED)2022-01-29 17:12:44* Test Item Value Reference Range Interpretation Comme nts POCT GLU (test code = 7025887836) 146 mg/dL 70-110 H Lab Interpretation (test cod e = 45785-4) Abnormal [facility] GLUCOSE (AUTOMATED)2022-01-29 12:29:40* Test Item Value Reference Range Interpretation Comme nts POCT GLU (test code = 2769421648) 209 mg/dL 70-110 H Lab Interpretation (test cod e = 57584-4) [facility]normal [facility] / [id number] 11:48:25* Test Item Value Reference Range Interpretation [...] the indications. Lab Interpretation (test code = 46341-8) [facility]normal [facility] [id number] 11:48:25* Test Item Value Reference Range Interpretation Comme [facility] APTT Patient (test code = 3173-2) See_Comment [Automated messa ge] The system which generated this result transmitted reference range: 26 - 36 Seconds. The reference range was not used to interpret this result as normal/abnormal. Lab Interpretation (test code = 07741-0) Normal [facility] / [id number] 11:48:25* Test Item Value Reference Range Interpretation Comme [facility] PROTIME PATIENT (test code = 5964-2) See_Comment H [Automated messa Destineer] The system which generated this result transmitted reference range: 10.1 - 12.6 Seconds. The reference range was not used to interpret this result as normal/abnormal. INR (test code = 6301-6) Normal INR <1.1; Warfarin Therapeutic range 2.0 to 3.0 or 2.5 to 3.5, depending upon the indications. Lab Interpretation (test code = 81841-9) Abnormal [facility] [id number] 11:48:25* Test Item Value Reference Range Interpretation Comme [facility] APTT Patient (test code = 3173-2) See_Comment [Automated [employer]ineer] The system which generated this result transmitted reference range: 26 - 36 Seconds. The reference range was not used to interpret this result as normal/abnormal. Lab Interpretation (test code = 10722-1) Normal [facility] (NA, K, CL, CO2, GLUCOSE, BUN, CREATININE, CA)2022-01-29 11:34:06* Test Item Value Reference Range Interpretation Comme [facility] NA (test code = 2375881164) 139 mmol/L 135-145 K (test code = 2263132498) 3.8 mmol/L 3.5-5.0 CL (test code = 2853026333) 113 mmol/L 98-108 H CO2 TOTAL (test code = 4325872486) 20 mmol/L 23-31 L AGAP (test code = 7404043520) 2-16 BUN (test code = 7706969781) 10 mg/dL 7-23 GLUCOSE (test code = 4429898272) 159 mg/dL 70-110 H CREATININE (test code = 5137155460) 0.84 mg/dL 0.50-1.04 CALCIUM (test code = 0540816770) 8.7 mg/dL 8.6-10.6 eGFR (test code = 3008671056) mL/min/1.73m2 KEE (test code = KEE) Association [...] imaging tests). Lab Interpretation (test code = 45011-8) Abnormal [facility] METABOLIC PANEL (NA, K, CL, CO2, GLUCOSE, BUN, CREATININE, CA)2022-01-29 11:34:06* Test Item Value Reference Range Interpretation Comme nts NA (test code = 0725101674) 139 mmol/L 135-145 K (test code = 0067929434) 3.8 mmol/L 3.5-5.0 CL (test code = 7967381181) 113 mmol/L 98-108 H CO2 TOTAL (test code = 1467721266) 20 mmol/L 23-31 L AGAP (test code = 2646310992) 2-16 BUN (test code = 5412648240) 10 mg/dL 7-23 GLUCOSE (test code = 3503013344) 159 mg/dL 70-110 H CREATININE (test code = 3639274816) 0.84 mg/dL 0.50-1.04 CALCIUM (test code = 5221491156) 8.7 mg/dL 8.6-10.6 eGFR (test code = 2133440764) mL/min/1.73m2 KEE (test code = KEE) Association [...] imaging tests). Lab Interpretation (test code = 22257-2) Abnormal [facility] WITH [id number] 11:27:43* Test Item Value Reference Range Interpretation Comme nts WBC (test code = 6690-2) See_Comment [Automated [employer]] The system which generated this result transmitted reference range: 4.30 - 11.10 10*3/?L. The reference range was not used to interpret this result as normal/abnormal. RBC (test code = 789-8) See_Comment [Automated [employer]] The system which generated this result transmitted [...] 32.0 g/dL 31.6-35.1 RDW-SD (test code = 51826-4) 39.8 fL 39.0-49.9 RDW-CV (test code = 788-0) 14.0 % 12.0-15.5 PLT (test code = 777-3) See_Comment [Automated messa ge] The system which generated this result transmitted reference range: 166 - 358 10*3/?L. The reference range was not used to interpret this result as normal/abnormal. MPV (test code = 71826-9) 9.6 fL 9.5-12.9 NRBC/100 WBC (test code = 3115448390) See_Comment [Automated [employer] ssage] The system which generated this result transmitted reference range: 0.0 - 10.0 /100 WBCs. The reference range was not used to interpret this result as normal/abnormal. NRBC x10^3 (test code = 7939195447) <0.01 See_Comment [Automated messa ge] The system which generated this result transmitted reference range: 10*3/?L. The reference range was not used to interpret this result as normal/abnormal. GRAN MAT (NEUT) % (test code = 770-8) 43.9 % IMM GRAN % (test code = 7401257507) 0.30 % LYMPH % (test code = 736-9) 43.5 % MONO % (test code = 5905-5) 7.3 % EOS % (test code = 713-8) 4.3 % BASO % (test code = 706-2) 0.7 % GRAN MAT x10^3(ANC) (test code = 1851375095) 2.65 10*3/uL 1.88-7.09 IMM GRAN x10^3 (test code = 9610080349) <0.03 0.00-0.06 LYMPH x10^3 (test code = 731-0) 2.63 10*3/uL 1.32-3.29 MONO x10^3 (test code = 742-7) 0.44 10*3/uL 0.33-0.92 EOS x10^3 (test code = 711-2) 0.26 10*3/uL 0.03-0.39 BASO x10^3 (test code = 704-7) 0.04 10*3/uL 0.01-0.07 Lab Interpretation (test code = 92921-9) Abnormal [facility] WITH [id number] 11:27:43* Test Item Value Reference Range Interpretation [...] 32.0 g/dL 31.6-35.1 RDW-SD (test code = 50886-6) 39.8 fL 39.0-49.9 RDW-CV (test code = 788-0) 14.0 % 12.0-15.5 PLT (test code = 777-3) See_Comment [Automated messa ge] The system which generated this result transmitted reference range: 166 - 358 10*3/?L. The reference range was not used to interpret this result as normal/abnormal. MPV (test code = 65088-5) 9.6 fL 9.5-12.9 NRBC/100 WBC (test code = [id number]) See_Comment [Automated me ssage] The system which generated this result transmitted reference range: 0.0 - 10.0 /100 WBCs. The reference range was not used to interpret this result as normal/abnormal. NRBC x10^3 (test code = [id number]) <0.01 See_Comment [Automated messa ge] The system which generated this result transmitted reference range: 10*3/?L. The reference range was not used to interpret this result as normal/abnormal. GRAN MAT (NEUT) % (test code = 770-8) 43.9 % IMM GRAN % (test code = [id number]) 0.30 % LYMPH % (test code = 736-9) 43.5 % MONO % (test code = 5905-5) 7.3 % EOS % (test code = 713-8) 4.3 % BASO % (test code = 706-2) 0.7 % GRAN MAT x10^3(ANC) (test code = [id number]) 2.65 10*3/uL 1.88-7.09 IMM GRAN x10^3 (test code = [id number]) <0.03 0.00-0.06 LYMPH x10^3 (test code = 731-0) 2.63 10*3/uL 1.32-3.29 MONO x10^3 (test code = 742-7) 0.44 10*3/uL 0.33-0.92 EOS x10^3 (test code = 711-2) 0.26 10*3/uL 0.03-0.39 BASO x10^3 (test code = 704-7) 0.04 10*3/uL 0.01-0.07 Lab Interpretation (test code = 14649-9) [facility]38:57* Test Item Value Reference Range Interpretation Comme nts POCT GLU (test code = 0715245069) 148 mg/dL 70-110 H Lab Interpretation (test cod e = 54754-9) Abnormal [facility] GLUCOSE (AUTOMATED)2022-01-28 21:17:35* Test Item Value Reference Range Interpretation Comme nts POCT GLU (test code = 0028555328) 220 mg/dL 70-110 H Lab Interpretation (test cod e = 76128-0) Abnormal [facility] GLUCOSE (AUTOMATED)2022-01-28 17:43:14* Test Item Value Reference Range Interpretation Comme nts POCT GLU (test code = 6926657567) 274 mg/dL 70-110 H Lab Interpretation (test cod e = 98165-7) Abnormal [facility] GLUCOSE (AUTOMATED)2022-01-28 01:58:00* Test Item Value Reference Range Interpretation Comme nts POCT GLU (test code = 0416716555) 300 mg/dL 70-110 H Lab Interpretation (test cod e = 12592-5) Abnormal [facility]. METABOLIC PANEL ([id number])2022-01-27 17:25:59* Test Item Value Reference Range Interpretation Comme nts NA (test code = 0243059037) 139 mmol/L 135-145 K (test code = 6864001918) 4.4 mmol/L 3.5-5.0 CL (test code = 2702325807) 109 mmol/L 98-108 H CO2 TOTAL (test code = 7998869990) 17 mmol/L 23-31 L AGAP (test code = 3807301627) 2-16 BUN (test code = 6954345223) 11 mg/dL 7-23 GLUCOSE (test code = 5826782148) 189 mg/dL 70-110 H CREATININE (test code = 7532442886) 0.68 mg/dL 0.50-1.04 TOTAL BILI (test code = 9220070374) 0.6 mg/dL 0.1-1.1 CALCIUM (test code = 2649308987) 8.9 mg/dL 8.6-10.6 T PROTEIN (test code = 5837071098) 7.1 g/dL 6.3-8.2 ALBUMIN (test code = 0412741676) 4.3 g/dL 3.5-5.0 ALK PHOS (test code = 1239841474) 75 U/L 34-122 ALTv (test code = 1742-6) 19 U/L 5-35 AST(SGOT) (test code = 3151997502) 19 U/L 13-40 eGFR (test code = 6746555471) mL/min/1.73m2 KEE (test code = KEE) Association [...] imaging tests). Lab Interpretation (test code = 00094-3) Abnormal [facility]. METABOLIC PANEL (57381)2022-01-27 17:25:59* Test Item Value Reference Range Interpretation Comme nts NA (test code = 5751829943) 139 mmol/L 135-145 K (test code = 6199568301) 4.4 mmol/L 3.5-5.0 CL (test code = 7348341097) 109 mmol/L 98-108 H CO2 TOTAL (test code = 3315925186) 17 mmol/L 23-31 L AGAP (test code = 3769093788) 2-16 BUN (test code = 7522740760) 11 mg/dL 7-23 GLUCOSE (test code = 0192166803) 189 mg/dL 70-110 H CREATININE (test code = 9324761806) 0.68 mg/dL 0.50-1.04 TOTAL BILI (test code = 8938502721) 0.6 mg/dL 0.1-1.1 CALCIUM (test code = 9348594873) 8.9 mg/dL 8.6-10.6 T PROTEIN (test code = 7517501986) 7.1 g/dL 6.3-8.2 ALBUMIN (test code = 4902361889) 4.3 g/dL 3.5-5.0 ALK PHOS (test code = 0470550254) 75 U/L 34-122 ALTv (test code = 1742-6) 19 U/L 5-35 AST(SGOT) (test code = 6762408121) 19 U/L 13-40 eGFR (test code = 7986897817) mL/min/1.73m2 KEE (test code = KEE) Association [...] imaging tests). Lab Interpretation (test code = 39092-0) [facility]* Test Item Value Reference Range Interpretation Comme nts LIPASE (test code = 7876965707) 233 U/L 0-220 H Lab Interpretation (test cod e = 28303-7) [facility] 17:25:44* Test Item Value Reference Range Interpretation Comme nts LIPASE (test code = 2484919904) 233 U/L 0-220 H Lab Interpretation (test cod e = 47227-1) [facility] [id number] 17:07:00* Test Item Value Reference Range Interpretation Comme nts WBC (test code = 6690-2) See_Comment [Automated [employer]] The system which generated this result transmitted reference range: 4.30 - 11.10 10*3/?L. The reference range was not used to interpret this result as normal/abnormal. RBC (test code = 789-8) See_Comment [Automated [employer] ge] The system which generated this result [...] 32.5 g/dL 31.6-35.1 RDW-SD (test code = 73816-2) 39.9 fL 39.0-49.9 RDW-CV (test code = 788-0) 13.8 % 12.0-15.5 PLT (test code = 777-3) See_Comment [Automated [employer] ge] The system which generated this result transmitted reference range: 166 - 358 10*3/?L. The reference range was not used to interpret this result as normal/abnormal. MPV (test code = 32483-2) 9.7 fL 9.5-12.9 NRBC/100 WBC (test code = 2047020127) See_Comment [Automated me ssage] The system which generated this result transmitted reference range: 0.0 - 10.0 /100 WBCs. The reference range was not used to interpret this result as normal/abnormal. NRBC x10^3 (test code = 6019865350) <0.01 See_Comment [Automated messa ge] The system which generated this result transmitted reference range: 10*3/?L. The reference range was not used to interpret this result as normal/abnormal. GRAN MAT (NEUT) % (test code = 770-8) 58.1 % IMM GRAN % (test code = 7598010975) 0.40 % LYMPH % (test code = 736-9) 32.3 % MONO % (test code = 5905-5) 6.4 % EOS % (test code = 713-8) 1.9 % BASO % (test code = 706-2) 0.9 % GRAN MAT x10^3(ANC) (test code = 8182307495) 4.62 10*3/uL 1.88-7.09 IMM GRAN x10^3 (test code = 6610864243) 0.03 10*3/uL 0.00-0.06 LYMPH x10^3 (test code = 731-0) 2.57 10*3/uL 1.32-3.29 MONO x10^3 (test code = 742-7) 0.51 10*3/uL 0.33-0.92 EOS x10^3 (test code = 711-2) 0.15 10*3/uL 0.03-0.39 BASO x10^3 (test code = 704-7) 0.07 10*3/uL 0.01-0.07 Lab Interpretation (test code = 77026-3) [id number] 16:05:00* Test Item Value Reference Range Interpretation Comme nts POCT PREG (test code = 1605) negative On board controls acceptable with C Line (test code = 3574) present POCT PREG LOT # (test code = 3575) [id number] POCT PREG TEST DATE ( test code = 3576) 05/11/2023 Lab Interpretation (test cod e = 28262-1) [id number] 16:05:00* Test Item Value Reference Range Interpretation Comme nts POCT PREG (test code = 1605) negative On board controls acceptable with C Line (test code = 3574) present POCT PREG LOT # (test code = 3575) [id number] POCT PREG TEST DATE ( test code = 3576) 05/11/2023 Lab Interpretation (test cod e = 98423-6) Normal [facility] Notes Date/Time Note Provider Source 2024-10-01 15:13:36 Clearance form completed by . Attempted to fax and was unsuccessful, sent through email instead. Called office and was given email to send to. [email or web address] Wick MA [facility] 2024-09-28 10:59:27 Shelby Arias is a 49 year old female Patient was added to schedule, please be advised. Future Appointments Date Time Provider Department Center 09/30/2024 1:00 PM Rosy Borja MD [facility] Hernandez [facility] 2024-09-28 09:35:23 Cardiac Clearance for lap leon received. Patient last seen 08.01.23. Will forward to PSS for assistance in booking for in person clearance. Will let Dr. Arevalo office know needing ov. [facility] 2024-06-01 13:46:13 Patient notified. She will schedule prior to f/u with Dr. Chang [facility] 2024-06-01 13:00:[address] you[address] Order for CT scan placed. Thanks. [facility] 2024-06-01 10:36:03 Patient calling because she wanted [...] reasons. ER precautions discussed. Patient verbalized understanding. [facility] 2024-01-20 09:27:[address] Chang's recommendations. She verbalized understanding. [facility] Arina Shook RN [facility] 2024-01-17 13:59:07 I apologize there may have been some miscommunication on my part, she had a CT scan on 07/12/2023, everything looked okay, very tiny lung nodule, would recommend consider a repeat CT scan in one year (07/2024). We can discuss further at clinic. Thanks [facility] 2024-01-16 12:43:19 Copied from [facility] #[id number]. Topic: Appointment - Appointment Request >> Jan 16, 2024 12:42 PM Patient Medical Accounts Receivable Specialist wrote: Shelby Arias is a 48 year old female Pt is saying Dr Chang wanted her to get another ct done before her upcoming appt with him on 01/23. Do not see any orders for ct. Please advise Melina Osorio [facility] 2023-10-17 08:59:18 Attempted to contact patient with results/recommendations. She has already viewed her normal results on My Chart. LVM for patient to return call to [phone] if she has any questions. Cardiac CTA shows calcium score 0.2 Left main normal LAD normal Ramus branch no significant disease noted Circumflex shows no atherosclerotic disease RCA shows no atherosclerotic disease. Cardiac CTA within normal limits. Recommend to discuss with PCP for noncardiac evaluation for chest pain. Written by Rosy Borja MD on 10/12/2023 6:22 PM GAS LINE INSTALLER Seen by patient Shelby Arias on 10/14/2023 8:26 PM LINE INSTALLER Arina Shook RN [facility] 2023-10-14 16:46:19 Images from the original note were not included. Patient had viewed the results on [employer] called to see if she had further questions LVM with office number and will also try back at a later time Rosy Borja MD P Cardiology Nurse Cardiac CTA shows calcium score 0.2 Left main normal LAD normal Ramus branch no significant disease noted Circumflex shows no atherosclerotic disease RCA shows no atherosclerotic disease. Cardiac CTA within normal limits. Recommend to discuss with PCP for noncardiac evaluation for chest pain. [facility] Nafisa Márquez MA [facility] 2023-10-09 13:00:00 Nursing Documentation for Cardiac Coronary [...] was taken to CT and placed on alarm security or surveillance monitor showing cardiac rhythm SR. HR is At 1304, B/P is 136/72, and Nitroglycerin 0.8 mg SL was given. After CT, patient was monitored, and at discharge VS were: Time 1315 B/P 116/87, HR 63, Resp 20 Sats 99. IV was D/C'd and a clean, dry, dressing was placed. Pt denies dizziness, chest pain, or shortness of breath and was discharged in stable condition [facility] 2023-08-01 13:30:00 Addended by: ROSY BORJA on: 08/01/2023 02:03 PM Modules accepted: Orders [facility] 2023-04-19 08:54:09 Formatting of this n ote might be different from the original. Incoming medical records from [facility]. Placed in provider's box. Lisette Stafford [facility] 2023-03-25 10:30:00 Addended by: DARIA BECKER on: 03/25/2023 11:33 AM Modules accepted: Orders [facility]
[2024-11-22] MEDS ORDERED: ONDANSETRON 4 MG (ODT) TAB ONE (12:14)
[2024-11-22] MEDS ORDERED: ACYCLOVIR 400 MG TABLET ONE (12:17)
[2024-11-22] MEDS ORDERED: HYDROCODONE/APAP 10/325 TAB ONE (12:17)
[2024-11-22] MEDS ORDERED: DOXYCYCLINE 100 MG CAP PO ONE (12:17)
[2024-11-22] MEDS ORDERED: IBUPROFEN 400 MG TAB ONE (12:17)
--- NOTE | 2024-11-22 12:44 | EDPHYS ---
Physician Documentation [facility] Name: Shelby Arias Age: 49 yrs Sex: Female : 1975 Arrival Date: 11/22/2024 Time: 11:30 Bed 12 Private MD: ED Physician Bacilio Pineda HPI: 11/22 12:15 This 49 yrs old Female presents to ER via Ambulatory with complaints of Skin Problem - cp middle finger right hand. 12:15 The patient or guardian reports rash, swelling and erythema of right middle finger. cp 12:15 Context: resulted from an unknown cause. Onset: The symptoms/episode began/occurred 2 cp day(s) ago. Historical: - Allergies: 11:58 Ancef; aa5 11:58 Effexor; aa5 11:58 Vistaril; aa5 12:00 Codeine; aa5 - PMHx: 11:58 COPD; diabetes mellitus; Fibromyalgia; GERD; IIH; neuropathy (Unknown); SVT; aa5 - PSHx: 11:58 Brain Shunt; carpal tunnel; gastric sleeve; Left ankle; neck; aa5 - Immunization history:: Adult Immunizations unknown. - Infectious Disease History:: Denies. - Social history:: Smoking status: Reported history of juuling and/or vaping. ROS: 12:20 Constitutional: Negative for body aches, chills, fever, poor PO intake, cp 12:20 Eyes: Negative for injury, pain, redness, and discharge, cp 12:20 Cardiovascular: Negative for chest pain, edema, palpitations, 12:20 Respiratory: Negative for cough, shortness of breath, wheezing, 12:20 Abdomen/GI: Negative for abdominal pain, nausea, vomiting, and diarrhea, 12:20 Skin: Positive for erythema, rash, swelling, of the right middle finger, 12:20 All other systems are negative, Exam: 12:25 Constitutional: The patient appears in no acute distress, alert, awake, non-toxic, well cp developed, well nourished, uncomfortable, 12:25 Head/Face: Normocephalic, atraumatic. cp 12:25 Chest/axilla: Inspection: normal, 12:25 Cardiovascular: Rate: normal, 12:25 Respiratory: the patient does not display signs of respiratory distress, Respirations: normal, no use of accessory muscles, no retractions, labored breathing, is not present, Breath sounds: are clear throughout, no decreased breath sounds, 12:25 Abdomen/GI: Inspection: abdomen appears normal, 12:25 Musculoskeletal/extremity: Extremities: noted in the right hand: dorsal side swelling of middle and proximal phalanx right middle finger, grouped erythematous vesicular rash noted to middle phalanx, swelling and erythema extending proximal to dorsal side of right hand, Perfusion: the extremity is normally perfused throughout, the right hand Sensation intact. Vital Signs: 11:58 BP 166 / 95; Pulse 78; Resp 16 S; Temp 98.5(O); Pulse Ox 97% on R/A; Weight 81.65 kg aa5 (R); Height 5 ft. 3 in. (R); 11:58 Body Mass Index 31.89 (81.65 kg, 160.02 cm) aa5 MDM: 12:01 Medical Screening Exam initiated cp 12:42 Data reviewed: vital signs, nurses notes, and as a result, I will discharge patient. 12:42 I considered the following discharge prescriptions or medication management in the cp emergency department Medications were administered in the Emergency Department. See MAR. Administered Medications: 12:21 Drug: HYDROcodone-acetaminophen PO 10 mg-325 mg 1 tabs PO once Route: PO; aa5 12:48 Follow up: Response: No adverse reaction aa5 12:21 Drug: Ibuprofen PO 800 mg PO once Route: PO; aa5 12:48 Follow up: Response: No adverse reaction aa5 12:21 Drug: Doxycycline PO 200 mg PO once Route: PO; aa5 12:48 Follow up: Response: No adverse reaction aa5 12:21 Drug: Acyclovir PO 800 mg PO once Route: PO; aa5 12:48 Follow up: Response: No adverse reaction aa5 12:21 Drug: Ondansetron Oral Disintegrating Tablet Oral Disintegrating Tablet 4 mg PO once aa5 Route: PO; 12:48 Follow up: Response: No adverse reaction aa5 Disposition: 11/23 10:53 Co-signature as Attending Physician, Bacilio Pineda MD I reviewed the patient's care rn provided by the Advanced Practice Provider and agree with the diagnosis and treatment plan. Disposition Summary: 11/22/24 12:43 Discharge Ordered Notes: Location: Home cp Problem: new cp Symptoms: have improved cp Condition: Stable cp Diagnosis - Cellulitis of right finger cp Followup: cp - With: Emergency Department - When: As needed - Reason: Worsening of condition Discharge Instructions: - Discharge Summary Sheet cp - Cellulitis, Adult cp Forms: - Medication Reconciliation Form cp - Antibiotic Education cp - Prescription Opioid Use cp - Patient Portal Instructions cp - Leadership Thank You Letter cp Prescriptions: - Ibuprofen 800 mg Oral Tablet - take 1 tablet ORAL route every 8 hours As needed take with food; 30 tablet; cp Refills: 0, Product Selection Permitted - Doxycycline Hyclate 100 mg Oral Tablet - take 1 tablet ORAL route every 12 hours; 20 tablet; Refills: 0, Product cp Selection Permitted - Tramadol 50 mg Oral Tablet - take 1 tablet ORAL route every 8 hours as needed; 12 tablet; Refills: 0, cp Product Selection Permitted - Acyclovir 800 mg Oral Tablet - take 1 tablet ORAL route 5 times per day for 10 days; 50 tablet; Refills: 0, cp Product Selection Permitted Signatures: Bacilio Pineda MD MD rn Calderon, Audri RN RN aa5 Otoniel Amaro PA PA cp
--- NOTE | 2024-11-22 12:44 | ER ---
Nurse's Notes [facility] Name: Shelby Arias Age: 49 yrs Sex: Female : 1975 Arrival Date: 11/22/2024 Time: 11:30 Bed 12 Private MD: Diagnosis: Cellulitis of right finger Presentation: 11/22 11:58 Chief complaint: Patient states: "I've had this happen for the past 20 years and nobody aa5 has been able to figure it out". Pt reports rash flare up to right middle finger x 2 days ago. Coronavirus screen: At this time, the client does not indicate any symptoms associated with coronavirus-19. Ebola Screen: Patient denies travel to an Ebola-affected area in the 21 days before illness onset. Initial Sepsis Screen: Does the patient meet any 2 criteria? No. Patient's initial sepsis screen is negative. Does the patient have a suspected source of infection? No. Patient's initial sepsis screen is negative. Risk Assessment: Do you want to hurt yourself or someone else? Patient reports no desire to harm self or others. Onset of symptoms was November 2024. 11:58 Acuity: YOVANY 5 aa5 11:58 Method Of Arrival: Ambulatory aa5 Historical: - Allergies: 11:58 Ancef; aa5 11:58 Effexor; aa5 11:58 Vistaril; aa5 12:00 Codeine; aa5 - PMHx: 11:58 COPD; diabetes mellitus; Fibromyalgia; GERD; IIH; neuropathy (Unknown); SVT; aa5 - PSHx: 11:58 Brain Shunt; carpal tunnel; gastric sleeve; Left ankle; neck; aa5 - Immunization history:: Adult Immunizations unknown. - Infectious Disease History:: Denies. - Social history:: Smoking status: Reported history of juuling and/or vaping. Screenin:00 [facility] ED Fall Risk Assessment (Adult) History of falling in the last 3 months, aa5 including since admission No falls in past 3 months (0 pts) Confusion or Disorientation No (0 pts) Intoxicated or Sedated No (0 pts) Impaired Gait No (0 pts) Mobility Assist Device Used No (0 pt) Altered Elimination No (0 pt) Score/Fall Risk Level 0 - 2 = Low Risk Oriented to surroundings, Maintained a safe environment, Educated pt \\T\\ family on fall prevention, incl call for assistance when getting out of bed, Assessed \\T\\ reinforced patient's understanding of fall precautions. Abuse screen: Denies threats or abuse. Nutritional screening: No deficits noted. Tuberculosis screening: No symptoms or risk factors identified. Assessment: 11:58 General: Appears comfortable, Behavior is calm, cooperative. Pain: Denies pain. Neuro: aa5 Level of Consciousness is awake, alert, obeys commands, Oriented to person, place, time, situation. Cardiovascular: Patient's skin is warm and dry. Respiratory: Airway is patent Respiratory effort is even, unlabored, Respiratory pattern is regular, symmetrical. GI: No signs and/or symptoms were reported involving the gastrointestinal system. : No signs and/or symptoms were reported regarding the genitourinary system. EENT: No signs and/or symptoms were reported regarding the EENT system. Derm: Skin is pink, warm \\T\\ dry. Rash noted that is blistering rash noted to proximal aspect of right middle finger. Musculoskeletal: Range of motion: intact in all extremities. 12:48 Reassessment: Patient is alert, oriented x 3, equal unlabored respirations, skin aa5 warm/dry/pink. Vital Signs: 11:58 BP 166 / 95; Pulse 78; Resp 16 S; Temp 98.5(O); Pulse Ox 97% on R/A; Weight 81.65 kg aa5 (R); Height 5 ft. 3 in. (R); 11:58 Body Mass Index 31.89 (81.65 kg, 160.02 cm) aa5 ED Course: 11:32 Patient arrived in ED. im 11:36 Otoniel Amaro PA is PHCP. cp 11:36 Bacilio Pineda MD is Attending Physician. cp 11:58 Arm band placed on. aa5 11:58 Patient has correct armband on for positive identification. Bed in low position. Call aa5 light in reach. Side rails up X 1. Adult w/ patient. 12:00 Triage completed. aa5 12:50 Kelly Montes, RN is Primary Nurse. aa5 12:50 No provider procedures requiring assistance completed. Patient did not have IV access aa5 during this emergency room visit. Administered Medications: 12:21 Drug: HYDROcodone-acetaminophen PO 10 mg-325 mg 1 tabs PO once Route: PO; aa5 12:48 Follow up: Response: No adverse reaction aa5 12:21 Drug: Ibuprofen PO 800 mg PO once Route: PO; aa5 12:48 Follow up: Response: No adverse reaction aa5 12:21 Drug: Doxycycline PO 200 mg PO once Route: PO; aa5 12:48 Follow up: Response: No adverse reaction aa5 12:21 Drug: Acyclovir PO 800 mg PO once Route: PO; aa5 12:48 Follow up: Response: No adverse reaction aa5 12:21 Drug: Ondansetron Oral Disintegrating Tablet Oral Disintegrating Tablet 4 mg PO once aa5 Route: PO; 12:48 Follow up: Response: No adverse reaction aa5 Medication: 12:50 VIS not applicable for this client. aa5 Outcome: 12:43 Discharge ordered by . cp 12:48 Discharged to home ambulatory, with significant other, aa5 12:48 Condition: stable 12:48 Discharge instructions given to patient, Instructed on discharge instructions, follow up and referral plans. medication usage, Demonstrated understanding of instructions, follow-up care, medications, Prescriptions given X 4, 12:50 Patient left the ED. aa5 Signatures: Kelly Montes, RN RN aa5 Otoniel Amaro PA PA Lauryn Ho
[2024-11-22 13:11] VITALS: BP 166/95; TEMP 98.5; O2SAT 97
== END 2024-11-22 12:50 | disposition home or self-care (01) ==
LOC: ER 11:30
DX: L03.011 Cellulitis of right finger (principal); Z98.2 Presence of cerebrospinal fluid drainage device
CPT/HCPCS: 99283; Q0162

== ENCOUNTER 2024-11-24 09:53 | Inpatient (IN) | payer OTHER ==
--- OUTSIDE RECORDS SUMMARY | 2024-11-24 10:00 | XMS REPORT | Continuity of Care Document ---
Author Name Unknown Address [address] [facility] Juan Miguel. [address] [place] [address] [facility] Address [address] [facility]. [address] [place] [address] Care Team Providers Care Mixer Tender Name Role Phone MIS VEGAS Primary Care Physician UnavailSTEFANY Gray Attending Clinician Unav STEFANY Ríos Attending Clinician UnaROSY Javier K.HReggie Attending Clinician Unavailjoanne Borja MD, Rosy K.HReggie Attending Clinician [phone] FELI CHANG Attending Clinician UnavailFELI Solitario Attending Clinician UnavailFeli Solitario DO Attending Clinician [phone] TAINA SHORT Attending Clinician UnavailTAINA Carvajal Attending Clinician UnavailFeli Rivers DO Attending Clinician [phone] ROBI SANTORO Attending Clinician Unavail ROBI Dubon Attending Clinician Unavail benjamín Borja MD, Sendmoriah K.HReggie Attending Clinician + [phone] Doctor Unassigned, [place] Attending Clinician U manasa Santoro MD, Robi Finch Attending Clinician [phone] Therapist, Adc Respiratory Attending Clinician U Mis [place] Attending Clinician [phone] Fortunato Fischer MD Attending Clinician [phone] Yu Longoria RN Attending Clinician [phone] Aryan Fay MD Attending Clinician FORTUNATO FISCHER Attending Clinician Unavailable ROSY BORJA Admitting Clinician Fortunato Houser MD Admitting Clinician FORTUNATO FISCHER Admitting Clinician Unavailable Payers Payer Name Policy Type Policy Number Effective Date Expirati on Date Source ALEKSANDR KENNEDY PLS [facility] [id number] 2023 00:00:00 [employer] [place] [employer] [id number] 2018 00:00:00 2023 00:00:00 Problems Condition Name [...] (BMI 30-39.9) Disease Active 01-28 00:00: 00 [facility] 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 01-28 00:00: 00 [facility] 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 Active 01-27 00:00: 00 [facility] 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 Active 01-27 00:00: 00 [facility] Allergies, Adverse Reactions, Alerts Allergy Name Allergy Type Status Severity Reaction(s) Onset Date Inactive Date Treating Clinician Comments Source Cefazoli n Propensi ty to adverse reaction s Active Anaphylaxis 01-27 00:00: 00 [facility] Venlafax ine Propensi ty to adverse reaction s Active Other - See comments 01-27 00:00: 00 Panic attack [facility] Shrimp Propensi ty to adverse reaction s Active Anaphylaxis 01-27 00:00: 00 [facility] Hydroxyz ine Hcl Propensi ty to adverse reaction s Active Other - See comments 01-27 00:00: 00 migraine [facility] CEFAZOLI N DRUG INGREDI Active Anaphylaxis 01-27 00:00: 00 [facility] VENLAFAX INE DRUG INGREDI Active Other-Cmnt 01-27 00:00: 00 [facility] SHRIMP DRUG INGREDI Active Anaphylaxis 01-27 00:00: 00 [facility] HYDROXYZ INE HCL DRUG INGREDI Active Other-Cmnt 01-27 00:00: 00 [facility] ANCEF Allergy to substanc e Active Itching [facility] EFFEXOR Allergy to substanc e Active Itching [facility] Vistaril Allergy to substanc e Active Itching [facility] NO KNOWN ALLERGIE S Drug Class Active [facility] Codeine Allergy to substanc e Active Itching [facility] Social History Social Habit Start Date Stop Date Quantity Comments Source Gender identity [facility] of tobacco use Passive smoker [facility] Tobacco use and exposure 2023-03-25 00:00:00 2023-03-25 00:00:00 Smokeless tobacco non-user [facility] History of Social function 2023-03-25 00:00:00 2023-03-25 00:00:[address] [facility] Exposure to SARS-CoV-2 (event) 2022-01-17 00:00:00 2022-01-27 09:37:[address] [facility] Sex assigned at 1975 00:00:00 1975 00:00:[address] [facility] Smoking Status Start Date Stop Date Source Former Smoker [facility] Tobacco smoking consumption unknown [facility] Medications Ordered Medication Name Filled Medication Name Start Date Stop Date Current Medication? Ordering Clinician Indication Dosage Frequency Signature (SIG) Comments Components Source cariprazine (VRAYLAR) 1.5 mg capsule 09-30 13:17: 48 Yes [id number] 1.5mg Take 1 capsule by mouth in the morning. [facility] propranoloL 10 mg tablet 09-30 00:00: 00 Yes [id number] 10mg Take 1 tablet by mouth in the morning and 1 tablet in the evening. [facility] ezetimibe 10 mg tablet 08-26 00:00: 00 Yes [id number] 10mg Take 1 tablet by mouth in the morning. [facility] fluticasone propion-emperatriz meteroL (ADVAIR DISKUS) 250-50 mcg/dose inhalation disk 2023-08 0 00:00: 00 Yes [id number] 1{puff} Inhale 1 Puff every 12 (twelve) hours. [facility] nitroglycer in (NITROSTAT) sublingual tablet 0.8 mg 10-09 19:15: 00 10-09 19:05 :00 No [id number] .8mg 0.8 mg, Sublingual , ONCE, 1 dose, On Sat10/09/23 at 1315, Routine [facility] metoprolol tartrate (LOPRESSOR) tablet 50 mg 10-09 19:15: 00 10-09 18:46 :00 No [id number] 50mg 50 mg, Oral, ONCE, 1 dose, On Sat10/09/23 at 1315, Routine [facility] metoprolol tartrate (LOPRESSOR) tablet 100 mg 10-09 19:15: 00 10-09 18:24 :00 No [id number] 100mg 100 mg, Oral, ONCE, 1 dose, On Sat10/09/23 at 1315, Routine [facility] iopamidol (ISOVUE 370-500 mL) injection 70 mL 10-09 18:30: 00 10-09 18:20 :00 No [id number] 70mL 70 mL, Intravenou s, ONCE, 1 dose, On Sat10/09/23 at 1230, Routine [facility] propranoloL 10 mg tablet 2022-08 13:33: 56 09-30 00:00 :00 No 10mg Take 1 tablet by mouth in the morning and 1 tablet in the evening. [facility] fenofibrate 48 mg tablet 2022-08 13:33: 51 Yes 48mg Take 1 tablet by mouth in the morning. [facility] rosuvastati n 10 mg tablet 2022-08 13:33: 47 09-30 00:00 :00 No 10mg Take 1 tablet by mouth at bedtime. [facility] eszopiclone 3 mg tablet 2022-08 13:16: 32 Yes 3mg Take 1 tablet by mouth at bedtime. [facility] clonazePAM 1 mg tablet 2022-08 13:16: 32 Yes 1mg Take 1 tablet by mouth in the morning and 1 tablet at noon and 1 tablet in the evening. [facility] QUEtiapine 100 mg tablet 2022-08 13:14: 41 Yes 200mg Take 2 tablets by mouth at bedtime. [facility] TRULICITY 1.5 mg/0.5 mL PnIj 2022-08 00:00: 00 Yes 1{appli cation} inject 1 Applicatio n under the skin. [facility] traMADoL 50 mg tablet 04-18 14:05: 24 04-18 00:00 :00 No 50mg Take 1 tablet by mouth every 6 (six) hours as needed. [facility] QUEtiapine 100 mg tablet 04-18 14:05: 15 Yes 200mg Take 2 tablets by mouth at bedtime. [facility] Omeprazole 20 mg tablet 04-18 14:04: 58 Yes 40mg Take 2 tablets by mouth at bedtime. [facility] lamoTRIgine 200 mg tablet 04-18 14:04: 56 Yes 200mg Take 1 tablet by mouth in the morning and 1 tablet in the evening. [facility] Cetirizine 10 mg capsule 04-18 14:04: 54 Yes 10mg Take 1 capsule by mouth in the morning. [facility] metFORMIN 500 mg tablet 04-18 13:48: 01 Yes 500mg Take 1 tablet by mouth in the morning and 1 tablet in the evening. Take with meals. [facility] insulin degludec (TRESIBA U-100 INSULIN SC) 04-18 13:48: 01 Yes 20U inject 20 Units under the skin at bedtime. [facility] propranoloL 10 mg tablet 04-18 13:48: 01 Yes 10mg Take 1 tablet by mouth in the morning and 1 tablet in the evening. [facility] rosuvastati n 10 mg tablet 04-18 13:48: 01 Yes 10mg Take 1 tablet by mouth at bedtime. [facility] fenofibrate 48 mg tablet 04-18 13:48: 01 Yes 48mg Take 1 tablet by mouth in the morning. [facility] DULoxetine 60 mg capsule 04-18 13:48: 01 09-30 00:00 :00 No 90mg Take 90 mg by mouth in the morning. [facility] DULoxetine 60 mg capsule 03-25 11:33: 19 Yes 60mg Take 1 capsule by mouth in the morning. [facility] propranoloL 10 mg tablet 03-25 11:33: 19 Yes 10mg Take 1 tablet by mouth in the morning and 1 tablet in the evening. [facility] metFORMIN 500 mg tablet 03-25 11:33: 19 Yes 500mg Take 1 tablet by mouth in the morning and 1 tablet in the evening. Take with meals. [facility] insulin degludec (TRESIBA U-100 INSULIN SC) 03-25 11:33: 19 Yes 20U inject 20 Units under the skin at bedtime. [facility] rosuvastati n 10 mg tablet 03-25 11:33: 19 Yes 10mg Take 1 tablet by mouth at bedtime. [facility] fenofibrate 48 mg tablet 03-25 11:33: 19 Yes 48mg Take 1 tablet by mouth in the morning. [facility] vilazodone (VIIBRYD) 40 mg tablet 03-25 11:30: 59 03-25 00:00 :00 No 40mg Take 40 mg by mouth daily. [facility] traMADoL 50 mg tablet 03-25 11:30: 58 Yes 50mg Take 1 tablet by mouth every 6 (six) hours as needed. [facility] QUEtiapine 100 mg tablet 03-25 11:30: 58 Yes 200mg Take 2 tablets by mouth at bedtime. [facility] Omeprazole 20 mg tablet 03-25 11:30: 58 Yes 40mg Take 2 tablets by mouth at bedtime. [facility] lamoTRIgine 200 mg tablet 03-25 11:30: 58 Yes 200mg Take 1 tablet by mouth in the morning and 1 tablet in the evening. [facility] Cetirizine 10 mg capsule 03-25 11:30: 58 Yes 10mg Take 1 capsule by mouth in the morning. [facility] gabapentin 400 mg capsule 03-25 11:30: 34 03-25 00:00 :00 No 800mg Take 800 mg by mouth at bedtime. [facility] atenoloL 50 mg tablet 03-25 11:30: 28 03-25 00:00 :00 No 50mg Take 50 mg by mouth at bedtime. [facility] ALPRAZolam 0.5 mg tablet 03-25 11:30: 21 03-25 00:00 :00 No .5mg Take 0.5 mg by mouth 3 (three) times daily as needed. [facility] acetaZOLAMI DE 250 mg tablet 03-25 11:30: 12 03-25 00:00 :00 No 500mg Take 500 mg by mouth 2 (two) times daily. [facility] fluticasone propion-emperatriz meteroL (ADVAIR DISKUS) 250-50 mcg/dose inhalation disk 03-25 00:00: 00 06-01 00:00 :00 No [id number] 1{puff} Inhale 1 Puff every 12 (twelve) hours. [facility] acetaZOLAMI DE 250 mg tablet 02-01 19:29: 26 Yes 500mg Take 500 mg by mouth 2 (two) times daily. [facility] QUEtiapine 100 mg tablet 02-01 19:29: 26 Yes 200mg Take 200 mg by mouth at bedtime. [facility] atenoloL 50 mg tablet 02-01 19:29: 26 Yes 50mg Take 50 mg by mouth at bedtime. [facility] Omeprazole 20 mg tablet 02-01 19:29: 26 Yes 40mg Take 40 mg by mouth at bedtime. [facility] gabapentin 400 mg capsule 02-01 19:29: 26 Yes 800mg Take 800 mg by mouth at bedtime. [facility] vilazodone (VIIBRYD) 40 mg tablet 02-01 19:29: 26 Yes 40mg Take 40 mg by mouth daily. [facility] ALPRAZolam 0.5 mg tablet 02-01 19:29: 26 Yes .5mg Take 0.5 mg by mouth 3 (three) times daily as needed. [facility] lamoTRIgine 200 mg tablet 02-01 19:29: 26 Yes 200mg Take 200 mg by mouth 2 (two) times daily. [facility] Cetirizine 10 mg capsule 02-01 19:29: 26 Yes 10mg Take 10 mg by mouth daily. [facility] traMADoL 50 mg tablet 02-01 19:29: 26 Yes 50mg Take 50 mg by mouth every 6 (six) hours as needed. [facility] dicyclomine (BENTYL) 10 mg/5 mL oral solution 5 mg 02-01 13:00: 00 Yes 5mg 5 mg, Oral, TID, First dose on Sat02/01/22 at 0800, Until Discontinu ed, [facility] (PRILOSEC) capsule 40 mg 02-01 13:00: 00 Yes 40mg 40 mg, Oral, BID, First dose (after last modificati on) on Sat02/01/22 at 0800, Until Discontinu ed, Routine [facility] dicyclomine 10 mg/5 mL oral solution 02-01 00:00: 00 03-04 04:59 :00 No [id number] 5mg Take 2.5 mL by mouth 3 (three) times daily for 30 days. [facility] HYDROcodone -acetaminop hen (NORCO) 5-325 mg tablet 02-01 00:00: 00 02-09 04:59 :00 No [id number] 1{tbl} Take 1 tablet by mouth every 6 (six) hours as needed for Pain (scale 7-10) for up to 7 days. Indication s: acute pain [facility] omeprazole (PRILOSEC) capsule 20 mg 01-31 22:45: 00 02-01 10:30 :41 No 20mg 20 mg, Oral, DAILY, First dose on Sat01/31/22 at 1745, Until Discontinu ed, Routine [facility] traMADoL 50 mg tablet 01-30 15:24: 49 Yes 50mg Take 50 mg by mouth every 6 (six) hours as needed. [facility] acetaZOLAMI DE 250 mg tablet 01-30 15:24: 49 Yes 500mg Take 500 mg by mouth 2 (two) times daily. [facility] QUEtiapine 100 mg tablet 01-30 15:24: 49 Yes 200mg Take 200 mg by mouth at bedtime. [facility] atenoloL 50 mg tablet 01-30 15:24: 49 Yes 50mg Take 50 mg by mouth at bedtime. [facility] Omeprazole 20 mg tablet 01-30 15:24: 49 Yes 40mg Take 40 mg by mouth at bedtime. [facility] gabapentin 400 mg capsule 01-30 15:24: 49 Yes 800mg Take 800 mg by mouth at bedtime. [facility] vilazodone (VIIBRYD) 40 mg tablet 01-30 15:24: 49 Yes 40mg Take 40 mg by mouth daily. [facility] ALPRAZolam 0.5 mg tablet 01-30 15:24: 49 Yes .5mg Take 0.5 mg by mouth 3 (three) times daily as needed. [facility] lamoTRIgine 200 mg tablet 01-30 15:24: 49 Yes 200mg Take 200 mg by mouth 2 (two) times daily. [facility] Cetirizine 10 mg capsule 01-30 15:24: 49 Yes 10mg Take 10 mg by mouth daily. [facility] enoxaparin (LOVENOX) injection 40 mg 01-30 13:00: 00 Yes 40mg 40 mg, Subcutaneo us, Q24H, First dose (after last reorder) on Sat01/30/22 at 0800, Until Discontinu ed, Routine [facility] morpHINE (2 mg/mL) injection 2 mg 01-28 22:47: 49 02-01 17:47 :43 No 2mg 2 mg, Slow IV Push, Q4HPRN, Starting on Sat01/28/22 at 1747, Until Damaris 02/01/22 at 1247, Routine, Pain (scale 7-10) [facility] enoxaparin (LOVENOX) injection 40 mg 01-28 22:45: 00 01-28 23:01 :00 No 40mg 40 mg, Subcutaneo us, ONCE, 1 dose, On 01/28/22 at 1745, Routine [facility] methocarbam oL (ROBAXIN) tablet 500 mg 01-28 17:29: 53 Yes 500mg 500 mg, Oral, Q6HPRN, Starting on 01/28/22 at 1229, Until Discontinu ed, Routine, back pain [facility] iopamidol (ISOVUE 370-500 mL) injection 70 mL 01-28 05:45: 00 01-28 05:45 :00 No [id number] 70mL 70 mL, Intravenou s, ONCE, 1 dose, On 01/28/22 at 0100, [facility]ine [facility] Sliding Scale Insulin-Reg ular + Fsbg Testing 01-28 02:00: 00 Yes Subcutaneo us, AC+HS, First dose on 01/27/22 at 2100, Until Discontinu ed, Routine [facility] QUEtiapine (SEROQUEL) tablet 200 mg 01-28 02:00: 00 Yes 200mg 200 mg, Oral, QHS, First dose on 01/27/22 at 2100, Until Discontinu ed, Routine [facility] gabapentin (NEURONTIN) capsule 800 mg 01-28 02:00: 00 Yes 800mg 800 mg, Oral, QHS, First dose on 01/27/22 at 2100, Until Discontinu ed, Routine [facility] atenoloL (TENORMIN) tablet 50 mg 01-28 02:00: 00 Yes 50mg 50 mg, Oral, QHS, First dose on 01/27/22 at 2100, Until Discontinu ed, Routine [facility] famotidine (PEPCID AC) tablet 20 mg 01-28 01:00: 00 Yes 20mg 20 mg, Oral, BID, First dose on 01/27/22 at 2000, Until Discontinu ed, Routine [facility] docusate (COLACE) capsule 100 mg 01-28 01:00: 00 Yes 100mg 100 mg, Oral, BID, First dose on 01/27/22 at 1999, Until Discontinu ed, Routine [facility] lamoTRIgine (LAMICTAL) tablet 200 mg 01-28 01:00: 00 Yes 200mg 200 mg, Oral, BID, First dose on 01/27/22 at 1999, Until Discontinu ed, Routine [facility] acetaZOLAMI DE (DIAMOX) tablet 500 mg 01-28 01:00: 00 Yes 500mg 500 mg, Oral, BID, First dose on 01/27/22 at 1999, Until Discontinu ed, Routine [facility] morpHINE (4 mg/mL) injection 4 mg 01-27 23:15: 00 01-27 22:11 :00 No 4mg 4 mg, Slow IV Push, ONCE, 1 dose, On 01/27/22 at 1815, Routine [facility] lidocaine 1% (XYLOCAINE) 10 mg/mL (1 %) injection 20 mL 01-27 22:45: 00 01-27 22:45 :00 No 20mL 20 mL, Infiltrati on, ONCE, 1 dose, On 01/27/22 at 1745, Routine [facility] ondansetron (ZOFRAN (PF)) injection 4 mg 01-27 21:42: 36 Yes 4mg 4 mg, Slow IV Push, Q6HPRN, Nausea and Vomiting (N/V), Starting on 01/27/22 at 1642
Do ses of ondansetro n 16 mg and above need to be administer ed via IV piggyback. For Dose >=24mg ECG monitoring is advisable.
[facility] glucagon (GLUCAGEN DIAGNOSTIC KIT) injection 1 mg 01-27 21:41: 46 Yes 1mg 1 mg, Intramuscu lar, PRN, Starting on 01/27/22 at 1641, Until Discontinu ed, BIANCA, Blood Glucose < or = 70 mg/dL and patient is unable to swallow or has mental changes. [facility] dextrose 10% (D10W) bolus infusion 250 [...] days at room temperatur e. <b r> [facility] HYDROcodone -acetaminop hen (NORCO 5) 5-325 mg tablet 1 tablet 01-27 21:41: 31 Yes 1{tbl} 1 tablet, Oral, Q6HPRN, Starting on [facility] 01/27/22 at 1641, Until Discontinu ed, Routine, Pain (scale 7-10) [facility] acetaminoph en (TYLENOL) tablet 325 mg 01-27 21:41: 29 Yes 325mg 325 mg, Oral, Q4HPRN, Starting on [facility] 01/27/22 at 1641, Until Discontinu ed, Routine, Pain (scale 4-6) [facility] acetaminoph en (TYLENOL) tablet 325 mg 01-27 21:41: 28 Yes 325mg 325 mg, Oral, Q6HPRN, Starting on [facility] 01/27/22 at 1641, Until Discontinu ed, Routine, Pain (scale 1-3) [facility] bisacodyL (DULCOLAX) suppository 10 mg 01-27 21:40: 20 Yes 10mg 10 mg, Rectal, QHSPRN, Starting on [facility] 01/27/22 at 1640, Until Discontinu ed, Routine, Constipati on [facility] NaCl 0.9% (NS) injection 5 mL 01-27 21:40: 20 Yes 5mL 5 mL, Slow IV Push, PRN - SEE INSTRUCTIO NS, Starting on [facility] 01/27/22 at 1640, Until Discontinu ed, 10 mL [facility] traMADoL (ULTRAM) tablet 50 mg 01-27 21:40: 04 Yes 50mg 50 mg, Oral, Q6HPRN, Starting on 01/27/22 at 1640, Until Discontinu ed, Routine, Pain (scale 4-6) [facility] ALPRAZolam (XANAX) tablet 0.5 mg 01-27 21:39: 34 Yes .5mg 0.5 mg, Oral, TIDPRN, Starting on 01/27/22 at 1639, Until Discontinu ed, Routine, anxiety [facility] morpHINE (4 mg/mL) injection 4 mg 01-27 20:00: 00 01-27 19:03 :00 No 4mg 4 mg, Slow IV Push, ONCE, 1 dose, On [facility] 01/27/22 at 1500, STAT [facility] methocarbam oL (ROBAXIN) tablet 1,000 mg 01-27 16:45: 00 01-27 17:00 :00 No 1000mg 1,000 mg, Oral, ONCE, 1 dose, On 01/27/22 at 1145, BIANCA [facility] NaCl 0.9% (NS) bolus infusion 500 mL 01-27 16:45: 00 01-27 17:57 :00 No 500mL at 999 mL/hr, 500 mL, IV Infusion, ONCE, 1 dose, On 01/27/22 at 1145, STAT [facility] ondansetron (ZOFRAN (PF)) injection 4 mg 01-27 16:45: 00 01-27 16:59 :00 No 4mg 4 mg, Slow IV Push, ONCE, 1 dose, On 01/27/22 at 1145, BIANCA [facility] ketorolac (TORADOL) injection 15 mg 01-27 16:45: 00 01-27 17:00 :00 No 15mg 15 mg, Slow IV Push, ONCE, 1 dose, On 01/27/22 at 1145, [facility] ibuprofen 600 mg tablet TAKE 1 TABLET BY MOUTH EVERY 6 HOURS NEEDED FOR PAIN ibuprofen 600 mg tablet TAKE 1 TABLET BY MOUTH EVERY 6 HOURS NEEDED FOR PAIN No ibuprofen 600 mg tablet TAKE 1 TABLET BY MOUTH EVERY 6 HOURS NEEDED FOR PAIN [facility] lamotrigine ER 100 mg tablet,exte nded release 24 hr TAKE 1 TABLET BY MOUTH DAILY lamotrigine ER 100 mg tablet,exte nded release 24 hr TAKE 1 TABLET BY MOUTH DAILY No lamotrigin e ER 100 mg tablet,ext ended release 24 hr TAKE 1 TABLET BY MOUTH DAILY [facility] lamotrigine ER 300 mg tablet,exte nded release 24 hr TAKE 1 TABLET BY MOUTH DAILY lamotrigine ER 300 mg tablet,exte nded release 24 hr TAKE 1 TABLET BY MOUTH DAILY No lamotrigin e ER 300 mg tablet,ext ended release 24 hr TAKE 1 TABLET BY MOUTH DAILY [facility] metformin 1,000 mg tablet metformin 1,000 mg tablet No metformin 1,000 mg tablet [facility] mirtazapine 15 mg tablet TAKE 1 TABLET BY MOUTH DAILY AT BEDTIME mirtazapine 15 mg tablet TAKE 1 TABLET BY MOUTH DAILY AT BEDTIME No mirtazapin e 15 mg tablet TAKE 1 TABLET BY MOUTH DAILY AT BEDTIME [facility] Ozempic 0.25 mg or 0.5 mg (2 [...] 0.5 MG UNDER THE SKIN EVERY WEEK [facility] propranolol 20 mg tablet propranolol 20 mg tablet No propranolo l 20 mg tablet [facility] Tresiba FlexTouch U-200 insulin 200 unit/mL (3 mL) subcutaneou s pen INJECT 22 UNITS UNDER THE SKIN EVERY NIGHT Tresiba FlexTouch U-200 insulin 200 unit/mL (3 mL) subcutaneou s pen INJECT 22 UNITS UNDER THE SKIN EVERY NIGHT No Tresiba FlexTouch U-200 insulin 200 unit/mL (3 mL) subcutaneo us pen INJECT 22 UNITS UNDER THE SKIN EVERY NIGHT [facility] Nystop 100,000 unit/gram topical powder APPLY TOPICALLY TO THE AFFECTED AREA TWICE DAILY Nystop 100,000 unit/gram topical powder APPLY TOPICALLY TO THE AFFECTED AREA TWICE DAILY No Nystop 100,000 unit/gram topical powder APPLY TOPICALLY TO THE AFFECTED AREA TWICE DAILY [facility] TechLITE Pen Needle 32 gauge x 1/4" USE 1 PEN NEEDLE 1 TIME EACH DAY TechLITE Pen Needle 32 gauge x 1/4" USE 1 PEN NEEDLE 1 TIME EACH DAY No TechLITE Pen Needle 32 gauge x 1/4" USE 1 PEN NEEDLE 1 TIME EACH DAY [facility] True Metrix Air Glucose Meter True Metrix Air Glucose Meter No True Metrix Air Glucose Meter [facility] True Metrix Glucose Test Strip True Metrix Glucose Test Strip No True Metrix Glucose Test Strip [facility] TRUEplus Lancets 33 gauge TRUEplus Lancets 33 gauge No TRUEplus Lancets 33 gauge [facility] dexlansopra zole 60 mg capsule,bip hase delayed release TAKE 1 CAPSULE BY MOUTH EVERY DAY dexlansopra zole 60 mg capsule,bip hase delayed release TAKE 1 CAPSULE BY MOUTH EVERY DAY No dexlansopr azole 60 mg capsule,bi phase delayed release TAKE 1 CAPSULE BY MOUTH EVERY DAY [facility] duloxetine 30 mg capsule,del ayed release TAKE 1 CAPSULE BY MOUTH DAILY duloxetine 30 mg capsule,del ayed release TAKE 1 CAPSULE BY MOUTH DAILY No duloxetine 30 mg capsule,de layed release TAKE 1 CAPSULE BY MOUTH DAILY [facility] ondansetron HCl 8 mg tablet TAKE 1 TABLET BY MOUTH DAILY NEEDED FOR NAUSEA ondansetron HCl 8 mg tablet TAKE 1 TABLET BY MOUTH DAILY NEEDED FOR NAUSEA No ondansetro n HCl 8 mg tablet TAKE 1 TABLET BY MOUTH DAILY NEEDED FOR NAUSEA [facility] Vraylar 3 mg capsule TAKE 1 CAPSULE BY MOUTH DAILY Vraylar 3 mg capsule TAKE 1 CAPSULE BY MOUTH DAILY No Vraylar 3 mg capsule TAKE 1 CAPSULE BY MOUTH DAILY [facility] albuterol sulfate HFA 90 mcg/actuati [...] HOURS NEEDED FOR WHEEZING/ SHORTNESS OF BREATH [facility] Medical ergocalcife rol (vitamin D2) 1,250 mcg (50,000 unit) capsule TAKE 1 CAPSULE BY MOUTH 1 TIME EVERY WEEK ergocalcife rol (vitamin D2) 1,250 mcg (50,000 unit) capsule TAKE 1 CAPSULE BY MOUTH 1 TIME EVERY WEEK No ergocalcif anastaisa (vitamin D2) 1,250 mcg (50,000 unit) capsule TAKE 1 CAPSULE BY MOUTH 1 TIME EVERY WEEK [facility] Medical Immunizations Ordered Immunization Name Filled Immunization Name Date Status Comments Source Influenza Virus Vaccine Quad IM, Preserv and ABX Free 6 MO-64 YRS (FLUCELVAX) 2023-08-13 00:00:[address] [facility] Influenza Virus Vaccine Quad IM, Preserv and ABX Free 6 MO-64 YRS (FLUCELVAX) Unknown Completed [facility] Influenza Virus Vaccine Quad IM, Preserv and ABX Free 6 MO-64 YRS (FLUCELVAX) Unknown Completed [facility] Influenza Virus Vaccine Quad IM, Preserv and ABX Free 6 MO-64 YRS (FLUCELVAX) Unknown Completed [facility] Influenza Virus Vaccine Quad IM, Preserv and ABX Free 6 MO-64 YRS (FLUCELVAX) Unknown Completed [facility] Vital Signs Vital Name Observation Time Observation Value Comments S ource BP Diastolic 2024-10-28 00:00:00 89 mm[Hg] [facility] Height 2024-10-28 00:00:00 63 [in_i] [facility] BP Systolic 2024-10-28 00:00:00 155 mm[Hg] [facility] Systolic blood pressure 2024-09-30 19:09:00 151 mm[Hg] [facility] Diastolic blood pressure 2024-09-30 19:09:00 91 mm[Hg] [facility] Heart rate 2024-09-30 19:09:00 94 /min [facility] Respiratory rate 2024-09-30 18:59:00 17 /min [facility] Body height 2024-09-30 18:59:00 157.5 cm [facility] Body weight 2024-09-30 18:59:00 82.237 kg [facility] BMI 2024-09-30 18:59:00 33.16 kg/m2 [facility] Height 2024-08-21 00:00:00 63 [...] Systolic blood pressure 2023-08-13 15:03:00 160 mm[Hg] [facility] Diastolic blood pressure 2023-08-13 15:03:00 90 mm[Hg] [facility] Heart rate 2023-08-13 15:03:00 75 /min [facility] Respiratory rate 2023-08-13 15:03:00 18 /min [facility] Oxygen saturation in Arterial blood by Pulse oximetry 2023-08-13 15:03:00 98 /min [facility] Body temperature 2023-08-13 15:01:[address] [facility] Body height 2023-08-13 15:01:00 160 cm [facility] Body weight 2023-08-13 15:01:00 83.235 kg [facility] BMI 2023-08-13 15:01:00 32.51 kg/m2 [facility] Systolic blood pressure 2023-08-01 19:21:00 143 mm[Hg] [facility] Diastolic blood pressure 2023-08-01 19:21:00 91 mm[Hg] [facility] Heart rate 2023-08-01 19:21:00 92 /min [facility] Body height 2023-08-01 19:21:00 160 cm [facility] Body weight 2023-08-01 19:21:00 80.74 kg [facility] BMI 2023-08-01 19:21:00 31.53 kg/m2 [facility] Oxygen saturation in Arterial blood by Pulse oximetry 2023-08-01 19:21:00 98 /min [facility] Systolic blood pressure 2023-05-28 17:03:00 136 mm[Hg] [facility] Diastolic blood pressure 2023-05-28 17:03:00 84 mm[Hg] [facility] Heart rate 2023-05-28 16:59:00 91 /min [facility] Respiratory rate 2023-05-28 16:59:00 18 /min [facility] Body height 2023-05-28 16:59:00 160 cm [facility] Body weight 2023-05-28 16:59:00 81.647 kg [facility] BMI 2023-05-28 16:59:00 31.89 kg/m2 [facility] Oxygen saturation in Arterial blood by Pulse oximetry 2023-05-28 16:59:00 98 /min [facility] Systolic blood pressure 2023-04-18 18:42:00 138 mm[Hg] [facility] Diastolic blood pressure 2023-04-18 18:42:00 78 mm[Hg] [facility] Heart rate 2023-04-18 18:42:00 84 /min [facility] Body height 2023-04-18 18:42:00 160 cm [facility] Body weight 2023-04-18 18:42:00 80.06 kg [facility] BMI 2023-04-18 18:42:00 31.27 kg/m2 [facility] Oxygen saturation in Arterial blood by Pulse oximetry 2023-04-18 18:42:00 98 /min [facility] Systolic blood pressure 2023-03-25 16:03:00 138 mm[Hg] [facility] Diastolic blood pressure 2023-03-25 16:03:00 89 mm[Hg] [facility] Heart rate 2023-03-25 16:03:00 66 /min [facility] Respiratory rate 2023-03-25 16:03:00 22 /min [facility] Body height 2023-03-25 16:03:00 160 cm [facility] Body weight 2023-03-25 16:03:00 77.792 kg [facility] BMI 2023-03-25 16:03:00 30.38 kg/m2 [facility] Oxygen saturation in Arterial blood by Pulse oximetry 2023-03-25 16:03:00 96 /min [facility] Systolic blood pressure 2022-02-01 21:21:00 138 mm[Hg] [facility] Diastolic blood pressure 2022-02-01 21:21:00 88 mm[Hg] [facility] Heart rate 2022-02-01 21:21:00 66 /min [facility] Body temperature 2022-02-01 21:21:[address] [facility] Respiratory rate 2022-02-01 21:21:00 18 /min [facility] Oxygen saturation in Arterial blood by Pulse oximetry 2022-02-01 21:21:00 99 /min [facility] Body height 2022-01-27 14:45:00 160 cm [facility] Body weight 2022-01-27 14:45:00 79.379 kg [facility] BMI 2022-01-27 14:45:00 31.00 kg/m2 [facility] Systolic blood pressure 2022-01-31 16:27:00 129 mm[Hg] [facility] Diastolic blood pressure 2022-01-31 16:27:00 78 mm[Hg] [facility] Heart rate 2022-01-31 16:27:00 77 /min [facility] Body temperature 2022-01-31 16:27:[address] [facility] Oxygen saturation in Arterial blood by Pulse oximetry 2022-01-31 16:27:00 100 /min [facility] Respiratory rate 2022-01-31 07:59:00 16 /min [facility] Body height 2022-01-27 14:45:00 160 cm [facility] Body weight 2022-01-27 14:45:00 79.379 kg [facility] BMI 2022-01-27 14:45:00 31.00 kg/m2 [facility] Procedures Procedure Date / Time Performed Performing Clinician Source Cholecystectomy 2024-10-10 00:00:00 [facility] US TRANSVAGINAL 2024-06-04 00:00:00 [facility] FLU VACC ([id number]), 6 MO-64 YRS, .5ML, IM, QUAD (FLUCELVAX) 2023-08-13 15:05:[address] [facility] REFERRAL- REQUEST/RESPONSE 2023-07-31 06:01:00 Sari alcantar Unassigned, [place] [facility] MEDICAL RELEASE/CLEARANCE FORMS 2023-07-24 06:01:00 Doctor Unassigned, [place] [facility] CT HEAD WO CONTRAST 2023-07-12 19:20:[address] [facility] CT LOW DOSE LUNG NODULE 2023-07-12 19:19:[address] [facility] PULMONARY FUNCTION TEST (RESULTS) 2023-07-10 14:02:[address] [facility] MEDICAL RELEASE/CLEARANCE FORMS 2023-06-10 05:01:00 Doctor Unassigned, [place] [facility] TRANSTHORACIC ECHO (TTE) COMPLETE 2023-05-27 20:39:[address] [facility] REFERRAL- REQUEST/RESPONSE 2023-05-24 05:01:00 D octor Unassigned, [place] [facility] HB ECG ROUTINE & RHYTHM STRIP 2023-04-18 18:44:[address] [facility] AUTHORIZATION TO RELEASE PHI TO [facility] 2023-04-18 05:01:00 Doctor Unassigned, [place] [facility] CONSENT/REFUSAL FOR DIAGNOSIS AND TREATMENT 2023-03-25 15:27:16 Doctor Unassigned, [place] [facility] AUTHORIZATION FOR RELEASE OF PHI 2023-03-21 05:01:00 Doctor Unassigned, [place] [facility] EXTERNAL PROVIDER - ADC REFERRAL 2023-03-19 05:01:00 Doctor Unassigned, [place] [facility] REFERRAL- REQUEST/RESPONSE 2023-01-21 05:01:00 D octor Unassigned, [place] [facility] AUTHORIZATION FOR RELEASE OF PHI 2022-03-13 05:01:00 Doctor Unassigned, [place] [facility] POCT GLUCOSE (AUTOMATED) 2022-02-01 21:23:[address] [facility] POCT GLUCOSE (AUTOMATED) 2022-02-01 16:36:[address] [facility] POCT GLUCOSE (AUTOMATED) 2022-02-01 12:38:[address] [facility] FERRITIN SERUM 2022-02-01 11:33:00 Donato Desir [facility] IRON PANEL 2022-02-01 11:33:00 Donato Desir [facility] POCT GLUCOSE (AUTOMATED) 2022-02-01 02:55:[address] [facility] POCT GLUCOSE (AUTOMATED) 2022-02-01 01:54:00 [facility] 2022-01-31 22:20:00 [facility] POCT GLUCOSE (AUTOMATED) 2022-01-31 17:41[facility]00 [facility]) 2022-01-31 13:02:00 [facility] POCT GLUCOSE (AUTOMATED) 2022-01-31 13:02:00 [facility] POCT GLUCOSE (AUTOMATED) 2022-01-31 01:50:00 [facility] POCT GLUCOSE (AUTOMATED) 2022-01-31 01:50:00 [facility] POCT GLUCOSE (AUTOMATED) 2022-01-30 22:49:00 [facility] POCT GLUCOSE (AUTOMATED) 2022-01-30 22:49:00 [facility] POCT GLUCOSE (AUTOMATED) 2022-01-30 18:02:00 [facility] POCT GLUCOSE (AUTOMATED) 2022-01-30 18:02:00 [facility] POCT GLUCOSE (AUTOMATED) 2022-01-30 13:16:00 [facility] POCT GLUCOSE (AUTOMATED) 2022-01-30 13:16:00 [facility] POCT GLUCOSE (AUTOMATED) 2022-01-30 02:17:00 [facility] POCT GLUCOSE (AUTOMATED) 2022-01-30 02:17:00 [facility] POCT GLUCOSE (AUTOMATED) 2022-01-29 21:10:00 [facility] POCT GLUCOSE (AUTOMATED) 2022-01-29 21:10:00 [facility] IR SPINAL LUMBAR PUNCTURE DIAGNOSTIC 2022-01-29 [facility] 2022-01-29 20:13:10 Vaibhav, [facility] POCT GLUCOSE (AUTOMATED) 2022-01-29 17:11:[address] [facility] POCT GLUCOSE (AUTOMATED) 2022-01-29 17:11:00 [facility]) 2022-01-29 12:27[facility]00 [facility] ([facility]ATED) 2022-01-29 12:27:[address] [facility] CBC WITH DIFF 2022-01-29 11:05:[address] [facility] CBC WITH DIFF 2022-01-29 11:05:00 Criss Ibarra [address]ka [facility] BASIC METABOLIC PANEL (NA, K, CL, CO2, GLUCOSE, BUN, CREATININE, CA) 2022-01-29 11:04:[address] [facility] PROTHROMBIN TIME / INR 2022-01-29 11:04:00 Teresowo rth [facility] ACTIVATED PARTIAL THRMPLAS PITER 2022-01-29 11:04:00 Nafisa Ibarra [facility] BASIC METABOLIC PANEL (NA, K, CL, CO2, GLUCOSE, BUN, CREATININE, CA) 2022-01-29 11:04:00 Nafisa Ibarra [facility] PROTHROMBIN TIME / INR 2022-01-29 11:04:00 Teresowo rth, [facility] ACTIVATED PARTIAL THRMPLAS PITER 2022-01-29 11:04:00 Nafisa Ibarra [facility] POCT GLUCOSE (AUTOMATED) 2022-01-29 02:37:00 [facility] POCT GLUCOSE (AUTOMATED) 2022-01-29 02:37:00 [facility] POCT GLUCOSE (AUTOMATED) 2022-01-28 21:16:00 [facility] POCT GLUCOSE (AUTOMATED) 2022-01-28 21:16:00 [facility] POCT GLUCOSE (AUTOMATED) 2022-01-28 17:41:00 [facility] POCT GLUCOSE (AUTOMATED) 2022-01-28 17:41:[address] [facility] CT ABDOMEN PELVIS W CONTRAST 2022-01-28 05:47:[address] [facility] [address] ABDOMEN PELVIS W CONTRAST 2022-01-28 05:47:13 [facility] POCT GLUCOSE (AUTOMATED) 2022-01-28 01:56:00 [facility] POCT GLUCOSE (AUTOMATED) 2022-01-28 01:56:00 [facility] LIPASE 2022-01-27 16:47:00 Aryan Fay [facility] COMP. METABOLIC PANEL (83015) 2022-01-27 16:47:[address] [facility] CBC WITH DIFF 2022-01-27 16:47:00 Aryan Fay [facility] CBC WITH DIFF 2022-01-27 16:47:00 Aryan Fay [facility] COMP. METABOLIC PANEL (93169) 2022-01-27 16:47:[address] [facility] LIPASE 2022-01-27 16:47:00 Aryan Fay [facility] CT HEAD WO CONTRAST 2022-01-27 16:23:[address] [facility] CT HEAD WO CONTRAST 2022-01-27 16:23:[address] [facility] XR SHUNT SERIES 2022-01-27 16:22:00 Aryan Fay [facility] XR SHUNT SERIES 2022-01-27 16:22:00 Aryan Fay [facility] POCT TEST 2022-01-27 16:05:[address] [facility] POCT TEST 2022-01-27 16:05:[address] [facility] URINALYSIS 2022-01-27 16:02:00 Aryan Fay [facility] URINALYSIS 2022-01-27 16:02:00 Aryan Fay [facility] COVID-19 (ID NOW RAPID TESTING) 2022-01-27 16:01:[address] [facility] LAB ONLY COVID INTERPRETATION 2022-01-27 16:01:[address] [facility] COVID-19 (ID NOW RAPID TESTING) 2022-01-27 16:01:[address] [facility] LAB ONLY COVID INTERPRETATION 2022-01-27 16:01:[address] [facility] NOTICE OF PRIVACY PRACTICES 2022-01-27 14:33:26 Doctor Unassigned, [place] [facility] NOTICE OF PRIVACY PRACTICES 2022-01-27 14:33:26 Doctor Unassigned, [place] [facility] CONSENT/REFUSAL FOR DIAGNOSIS AND TREATMENT 2022-01-27 14:30:23 Doctor Unassigned, [place] [facility] CONSENT/REFUSAL FOR DIAGNOSIS AND TREATMENT 2022-01-27 14:30:23 Doctor Unassigned, [place] [facility] HOSPITAL ADMISSION 2022-01-27 05:01:00 Doctor Un assigned, [place] [facility] ADMISSION 2022-01-27 05:01:00 Doctor Un assigned, [place] [facility] Laparoscopic Sleeve Gastrectomy [facility] Encounters Start Date/Time End Date/Time Encounter Type Admission Type Attending [facility] Care Facility Care Department Encounter ID Source 2024-11-19 00:00:00 2024-11-19 00:00:00 Kati Arrington, MEMBERSHIP ADMINISTRATOR: [address], [facility] [address], [place] [address] , Ph. [facility] - GC_GCBZW_[facility]* [id number] [facility] 2024-11-12 09:00:00 2024-11-12 09:00:00 Outpatient SIVAN KUMAR CHOCKALINGA M [facility] [id number] [facility] 2024-10-29 08:00:00 2024-10-29 08:00:00 Outpatient R SIVAN CAMPOS Cara SIVAN CAMPOS [facility] [id number] [facility] 2024-10-28 00:00:00 2024-10-28 00:00:00 Melani Joshua MD: [address], [address], [place] [address] , Ph. [facility] - GC_GCBZW_[place] [facility] [place]* [id number] [facility] 2024-09-30 13:00:00 2024-09-30 13:27:12 Outpatient R ROSY BORJA [facility] [id number] [facility] 2024-09-30 13:00:00 2024-09-30 13:27:12 Office Visit Rosy Borja [facility] [id number] 350.1.13.10 4.2.7.2.686 [id number] [facility] 2024-09-28 00:00:00 2024-09-28 11:00:02 Telephone Rosy Borja [facility] [id number] 350.1.13.10 4.2.7.2.686 [id number] [facility] 2024-09-01 00:00:00 2024-09-01 00:00:00 ZARIA Stuart: [address], [address], [place] [address] , Ph. [facility]* [id number] [facility] 2024-08-21 00:00:00 2024-08-21 00:00:00 Melani Joshua MD: [address], [address], [place] [address] , Ph. [facility] - GC_GCBZW_Angella Fish* [id number] [facility] 2024-07-30 00:00:00 2024-07-30 00:00:00 MANA Mendoza: [address], [address], [place] [address] , Ph. [facility] - GC_GCBZW_Angella Fish* [id number] [facility] 2024-07-13 00:00:00 2024-07-13 00:00:00 Outpatient FELI VALENCIA SHIWAN [facility] [id number] [facility] 2024-06-18 00:00:00 2024-06-18 00:00:00 MANA Mendoza: [address], [address], [place] [address] , Ph. [facility] - GC_GCBZW_Angella hackett Abe* [id number] [facility] 2024-06-04 00:00:00 2024-06-04 00:00:00 LARISSA BaeP: [address], [address], [place] [address] , Ph. [facility] - GC_GCBZW_Angella Fish* [id number] [facility] 2024-06-01 00:00:00 2024-06-01 13:46:33 Telephone Feli Chang [facility] [id number] 350.1.13.10 4.2.7.2.686 [id number] [facility] 2024-01-24 09:00:00 2024-01-24 09:00:00 Outpatient FELI VALENCIA [facility] [id number] [facility] 2024-01-16 00:00:00 2024-01-20 09:27:58 Telephone [facility] [id number] 350.1.13.10 4.2.7.2.686 [id number] [facility] 2023-12-26 15:00:00 2023-12-26 15:00:00 Outpatient R TAINA SHORT [facility] [id number] [facility] 2023-11-27 14:00:00 2023-11-27 14:00:00 Outpatient R TAINA SHORT [facility] [id number] [facility] 2023-10-21 13:40:00 2023-10-21 13:40:00 Outpatient ROBI CABEZAS [facility] [id number] [facility] 2023-10-14 13:30:00 2023-10-14 13:30:00 Outpatient ROSY ISBELL [facility] [id number] [facility] 2023-10-14 00:00:00 2023-10-14 00:00:00 Telephone Rosy Borja [facility] 1.2.840.114 350.1.13.10 4.2.7.2.686 [id number] [facility] 2023-10-09 11:20:41 2023-10-09 23:59:00 Outpatient ROSY ISBELL [facility] [id number] [facility] 2023-10-09 11:20:41 2023-10-09 23:59:00 Hospital Encounter Rosy Borja [facility] 1.2.840.114 350.1.13.10 4.2.7.2.686 [id number] [facility] 2023-10-08 13:00:00 2023-10-08 13:00:00 Outpatient R ROBI SANTORO [facility] [id number] [facility] 2023-10-02 13:30:00 2023-10-02 13:30:00 Outpatient R ROSY BORJA [facility] [id number] [facility] 2023-10-01 10:00:00 2023-10-01 10:00:00 Outpatient R [facility] [id number] [facility] 2023-08-28 00:00:00 2023-08-28 00:00:00 Outpatient R ROSY BORJA [facility] [id number] [facility] 2023-08-14 15:00:00 2023-08-14 15:00:00 Outpatient R TAINA SHORT [facility] [id number] [facility] 2023-08-13 09:00:00 2023-08-13 09:36:32 Outpatient R FELI CHANG [facility] [id number] [facility] 2023-08-13 09:00:00 2023-08-13 09:36:32 Office Visit Feli Chang [facility] 1.2.840.114 350.1.13.10 4.2.7.2.686 [id number] [facility] 2023-08-01 13:30:00 2023-08-01 13:53:06 Outpatient R ROSY BORJA [facility] [id number] [facility] 2023-08-01 13:30:00 2023-08-01 13:53:06 Office Visit Rosy Borja [facility] [id number] 350.1.13.10 4.2.7.2.686 [id number] [facility] 2023-07-31 00:00:00 2023-07-31 00:00:00 Orders Only Doctor Unassigned, [place] [facility] [id number] 350.1.13.10 4.2.7.2.686 [id number] [facility] 2023-07-29 15:30:00 2023-07-29 15:30:00 Outpatient R ROSY BORJA [facility] [id number] [facility] 2023-07-24 00:00:00 2023-07-24 00:00:00 Orders Only Doctor Unassigned, [place] [facility] 1.2.840.114 350.1.13.10 4.2.7.2.686 [id number] [facility] 2023-07-19 00:00:00 2023-07-19 00:00:00 Telephone Rosy Borja [facility] 1.2840.114 350.1.13.10 4.2.7.2.686 [id number] [facility] 2023-07-12 12:56:49 2023-07-12 23:59:00 Hospital Encounter Robi Santoro [facility] 1.2840.114 350.1.13.10 4.2.7.2.686 [id number] [facility] 2023-07-12 12:56:10 2023-07-12 23:59:00 Outpatient R FELI CHANG [facility] [id number] [facility] 2023-07-12 12:56:10 2023-07-12 23:59:00 Hospital Encounter Feli Chang [facility] 1.2.840.114 350.1.13.10 4.2.7.2.686 [id number] [facility] 2023-07-10 08:00:00 2023-07-10 09:33:33 Outpatient R ADRI CHANGJuan LEATHA CHANGAKJuan [facility] [id number] [facility] 2023-07-10 08:00:00 2023-07-10 09:33:33 Museum Preparator Visit Therapist, Adc Respiratory Feli Chang [facility] 1.0.114 350.1.13.10 4.2.7.2.686 [id number] [facility] 2023-07-10 00:00:00 2023-07-10 00:00:00 Orders Only Adri Changjuan [facility] 1..114 350.1.13.10 4.2.7.2.686 [id number] [facility] 2023-06-10 14:00:00 2023-06-10 14:00:00 Outpatient ROSY ISBELL [facility] [id number] [facility] 2023-06-10 00:00:00 2023-06-10 00:00:00 Orders Only Doctor Unassigned, [place] [facility] 1..114 350.1.13.10 4.2.7.2.686 [id number] [facility] 2023-06-05 00:00:00 2023-06-05 00:00:00 Telephone Rosy Borja [facility] 1.84.114 350.1.13.10 4.2.7.2.686 [id number] [facility] 2023-05-28 12:20:00 2023-05-28 12:59:05 Outpatient ROBI CABEZAS [facility] [id number] [facility] 2023-05-28 12:20:00 2023-05-28 12:59:05 Office Visit Robi Santoro [facility] 1.840.114 350.1.13.10 4.2.7.2.686 [id number] [facility] 2023-05-28 00:00:00 2023-05-28 00:00:00 Telephone Rosy Borja [facility] 1.2.840.114 350.1.13.10 4.2.7.2.686 [id number] 059 [id number] [facility] 2023-05-27 15:36:48 2023-05-27 23:59:00 Hospital Encounter Rosy Borja [facility] 1.2840.114 350.1.13.10 4.2.7.2.686 [id number] [facility] 2023-05-27 14:44:45 2023-05-27 15:35:00 Outpatient R ROSY BORJA [facility] [id number] [facility] 2023-05-27 14:44:45 2023-05-27 15:35:00 Hospital Encounter Rosy Borja [facility] 1.2840.114 350.1.13.10 4.2.7.2.686 [id number] [facility] 2023-05-24 00:00:00 2023-05-24 00:00:00 Orders Only Doctor Unassigned, [place] [facility] 1.2.840.114 350.1.13.10 4.2.7.2.686 [id number] [id number] [facility] 2023-05-24 00:00:00 2023-05-24 00:00:00 Telephone Robi Santoro [facility] 1.2840.114 350.1.13.10 4.2.7.2.686 [id number] [id number] [facility] 2023-05-20 09:30:00 2023-05-20 09:30:00 Outpatient R [facility] [id number] [facility] 2023-05-13 00:00:00 2023-05-13 00:00:00 Telephone Rosy Borja [facility] 1..840.114 350.1.13.10 4.2.7.2.686 [id number] [facility] 2023-05-09 15:30:00 2023-05-09 15:30:00 Outpatient R ROSY BORJA [facility] [id number] [facility] 2023-04-19 00:00:00 2023-04-19 00:00:00 Telephone Rosy Borja [facility] 1..840.114 350.1.13.10 4.2.7.2.686 [id number] [id number] [facility] 2023-04-18 13:30:00 2023-04-18 15:53:05 Outpatient R ROSY BORJA [facility] [id number] [facility] 2023-04-18 13:30:00 2023-04-18 15:53:05 Office Visit Rosy Borja [facility] 1.2.840.114 350.1.13.10 4.2.7.2.686 [id number] [facility] 2023-04-18 00:00:00 2023-04-18 00:00:00 Orders Only Doctor Unassigned, [place] [facility] 1..840.114 350.1.13.10 4.2.7.2.686 [id number] [facility] 2023-04-09 00:00:00 2023-04-09 00:00:00 Outpatient R FELI CHANG SHIWAN [facility] [id number] [facility] 2023-04-08 00:00:00 2023-04-08 00:00:00 Letter (Out) [place] [facility] 1.2.840.114 350.1.13.10 4.2.7.2.686 [id number] [facility] 2023-03-25 10:30:00 2023-03-25 11:18:14 Outpatient R FELI CHANG SHIAKJuan [facility] [id number] [facility] 2023-03-25 10:30:00 2023-03-25 11:18:14 Office Visit Feli Chang [facility] 1.2840.114 350.1.13.10 4.2.7.2.686 [id number] [facility] 2023-03-25 00:00:00 2023-03-25 00:00:00 Orders Only Doctor Unassigned, [place] [facility] 1.2.840.114 350.1.13.10 4.2.7.2.686 [id number] [id number] [facility] 2023-03-21 00:00:00 2023-03-21 00:00:00 Orders Only Doctor Unassigned, [place] [facility] 1.2.840.114 350.1.13.10 4.2.7.2.686 [id number] [id number] [facility] 2023-03-19 00:00:00 2023-03-19 00:00:00 Orders Only Doctor Unassigned, [place] [facility] 1.2.840.114 350.1.13.10 4.2.7.2.686 [id number] [id number] [facility] 2023-01-21 00:00:00 2023-01-21 00:00:00 Orders Only Doctor Unassigned, [place] [facility] 1.2840.114 350.1.13.10 4.2.7.2.686 [id number] [id number] [facility] 2022-04-26 00:00:00 2022-04-26 00:00:[address] [facility] 1.2.840.114 350.1.13.10 4.2.7.2.686 [id number] [facility] 2022-03-13 00:00:00 2022-03-13 00:00:00 Orders Only Doctor Unassigned, [place] [facility] 1.2.840.114 350.1.13.10 4.2.7.2.686 [id number] 009 [id number] [facility] 2022-02-02 00:00:00 2022-02-02 00:00:00 Transition of Care [place] 1.2840.114 350.1.13.10 4.2.7.2.686 [id number] [facility] 2022-01-27 09:47:00 2022-02-01 19:29:00 Hospital Encounter Aryan Fay [facility] 1.2.840.114 350.1.13.10 4.2.7.2.686 [id number] [facility] 2022-01-27 09:47:00 2022-02-01 19:29:00 Inpatient X FORTUNATO FISCHER [facility] ANNMARIE [id number] [facility] 2022-01-27 00:00:00 2022-01-27 00:00:00 Travel 1.2.840.1 37859.1.1 3.104.2.7 .[id number] .8 1.2.840.114 350.1.13.10 4.2.7.3.698 [id number] [facility] Results Test Description Test Time Test Comments Results Result Co mments Source [facility] MedicalFollitropin [Units/volume] in Serum or [id number] 00:00:00* Test Item Value Reference Range Interpretation Comme nts Follitropin [Units/volume] i n Serum or Plasma (test code = 09733-6) 23.0 mIU/mL [facility] MedicalThyrotropin [Units/volume] in Serum or [id number] 00:00:00* Test Item Value Reference Range Interpretation Comme nts Thyrotropin [Units/volume] i n Serum or Plasma (test code = 3016-3) 2.05 mIU/L [facility] Medicalinfectious disease [id number] 00:00:00* Test Item Value Reference Range Interpretation [...] B, tet M) 17.746 ppm 23.000-27.778 [facility]2023-07-10 14:02:02* Test Item Value Reference Range Interpretation Comme nts FVC Actual (test code = 3994) 3.47 L FEV1 Actual (test code = 3993) 2.63 L FEV1/FVC Actual (test code = 3995) 76 [facility]23-[facility]-28 01:18:38* Test Item Value Reference Range Interpretation Comme nts Height (test code = 9398779836) 63 in Weight (test code = 1650305022) 176 lbs Systolic BP (test code = 3264386639) 132 mmHg Diastolic BP (test code = 8786505923) 68 mmHg Heart Rate (test code = 6762974951) 79 bpm MR max PG (test code = 6584563695) 102.70 mm[Hg] MR max jama (test code = 6883752586) 506.60 cm/s Ao root diam (test code = 1068727858) 3.20 cm Mr max jama (test code = 1759897548) 506.6 m/s Aortic root (test code = 0340122032) 3.2 cm Ao root annulus (test code = 4941608898) 3.2 cm BSA (test code = 4011854120) 1.83 m2 LVOT diameter (test code = 4533246152) 1.90 cm LVOT area (test code = 4881380573) 2.80 cm2 LA size (test code = 2239175013) 3.5 cm ACS (test code = 6301006359) 1.87 cm PV PEAK VELOCITY (test code = 3747621299) 108.5 cm/s PV peak gradient (test code = 3158163134) 4.7 mmHg LVIDD (test code = 0079435496) 4.40 cm Left Ventricular End Diastolic Volume by Teichholz Method (test code = 1961093) 87.8 mL IVS (test code = 3914132537) 1.12 cm Interventricular Septum Diastolic Thickness by 2D (test code = 3642518) 1.12 cm LVPWD (test code = 7354734447) 1.11 cm PW (test code = 1515712920) 1.11 cm 0.6-1.1 EF(Teich) (test code = 7453289892) 55.80 % LVIDS (test code = 5147921558) 3.10 cm Left Ventricular End Systolic Volume by Teichholz Method (test code = 3081085) 38.8 mL FS (test code = 9276099391) 29 % EF - 2D (test code = 30814089) 55.80 % LAV(MOD-sp4) (test code = 6830024735) 36.80 mL MV E-F slope (test code = 1946470153) 36.90 cm/s MV Peak E Jama (test code = 2096010954) 110.0 cm/s MV valve area p 1/2 method (test code = 5112721976) 2.41 cm2 MV dec slope (test code = 6458338867) 348.60 cm/s2 MV P1/2t max jama (test code = 6228369364) 108.50 cm/s MV Peak A Jama (test code = 9507569810) 96.9 cm/s E/A ratio (test code = 9941792715) 1.14 ratio LVOT stroke volume (test code = 4077467617) 98.50 cm3 LVOT peak jama (test code = 1659139422) 160.4 cm/s LVOT mn grad (test code = 9767950175) 4.9 mmHg AV LVOT peak gradient (test code = 6546291665) 10.3 mmHg LVOT peak VTI (test code = 9071284813) 34.7 cm LV V1 mean (test code = 3546342893) 101.80 cm/s Aortic valve mean velocity (test code = 9598062626) 122.0 cm/s Ao peak jama (test code = 1745647705) 200.5 cm/s Ao VTI (test code = 0651798378) 40.9 cm AV area by cont VTI (test code = 2485797522) 2.4 cm2 AV area peak jama (test code = 1271792797) 2.3 cm2 Ao max PG (test code = 4985689074) 16.10 mm[Hg] AV peak gradient (test code = 7187062564) 16.1 mmHg AV valve area (test code = 5803154309) 2.41 cm2 AV mean gradient (test code = 7923151012) 7.0 mmHg TR Peak Jama (test code = 2229585500) 227.8 cm/s Triscuspid Valve Regurgitation Peak Gradient (test code = 0898475171) 20.8 mmHg LA Volume Index (BP) (test code = 7931568935) 23.2 mL/m2 LA volume (BP) (test code = 1076429529) 42.4 mL LAV(MOD-sp2) (test code = 8852072138) 42.40 mL Radiology Study observation (narrative) (test code = 16333-2) KEE (test code = KEE) ?Left?Ventricle: Left [...] 2D, color flow Doppler and spectral Doppler. [facility] GLUCOSE (AUTOMATED)2022-02-01 21:24:06* Test Item Value Reference Range Interpretation Comme nts POCT GLU (test code = 1064646431) 172 mg/dL 70-110 H Lab Interpretation (test cod e = 25151-4) Abnormal [facility] GLUCOSE (AUTOMATED)2022-02-01 16:37:31* Test Item Value Reference Range Interpretation Comme nts POCT GLU (test code = 1808975786) 289 mg/dL 70-110 H Lab Interpretation (test cod e = 44107-6) Abnormal [facility] [id number] 14:09:40* Test Item Value Reference Range Interpretation Comme nts FERRITIN (test code = 0018151126) 11.3 ng/mL 6.0-137.0 KEE (test code = KEE) Biotin has been reported to cause a negative bias, interpret results relative to patient's use of biotin. Lab Interpretation (test code = 61613-7) Normal [facility] [id number] 13:42:20* Test Item Value Reference Range Interpretation Comme nts IRON (test code = 5524364426) 39 ug/dL 50-160 L TIBC (test code = 4304599301) 515 ug/dL 250-410 H % FE SAT (test code = 9363223948) 8 % 20-50 L Lab Interpretation (test cod e = 80102-2) Abnormal [facility] GLUCOSE (AUTOMATED)2022-02-01 12:38:56* Test Item Value Reference Range Interpretation Comme nts POCT GLU (test code = 7114324069) 187 mg/dL 70-110 H Lab Interpretation (test cod e = 47417-4) Abnormal [facility] GLUCOSE (AUTOMATED)2022-02-01 02:56:29* Test Item Value Reference Range Interpretation Comme nts POCT GLU (test code = 4531552883) 230 mg/dL 70-110 H Lab Interpretation (test cod e = 04498-5) Abnormal [facility] GLUCOSE (AUTOMATED)2022-02-01 02:11:37* Test Item Value Reference Range Interpretation Comme nts POCT GLU (test code = 3934642632) 235 mg/dL 70-110 H Lab Interpretation (test cod e = 39217-0) Abnormal [facility] GLUCOSE (AUTOMATED)2022-01-31 22:22:00* Test Item Value Reference Range Interpretation Comme nts POCT GLU (test code = 2110041518) 159 mg/dL 70-110 H Notified Provide r Lab Interpretation (test code = 07032-8) [facility] 17:42:16* Test Item Value Reference Range Interpretation Comme nts POCT GLU (test code = 8460643322) 249 mg/dL 70-110 H Notified Provide r Lab Interpretation (test code = 53187-8) Abnormal [facility] GLUCOSE (AUTOMATED)2022-01-31 13:03:21* Test Item Value Reference Range Interpretation Comme nts POCT GLU (test code = 7982966653) 142 mg/dL 70-110 H Notified Provide r Lab Interpretation (test code = 26536-3) Abnormal [facility] GLUCOSE (AUTOMATED)2022-01-31 13:03:21* Test Item Value Reference Range Interpretation Comme nts POCT GLU (test code = 5404359849) 142 mg/dL 70-110 H Notified Provide r Lab Interpretation (test code = 72205-8) [facility]2022-01-31 01:51:49* Test Item Value Reference Range Interpretation Comme nts POCT GLU (test code = 7314636459) 183 mg/dL 70-110 H Lab Interpretation (test cod e = 12946-1) Abnormal [facility] GLUCOSE (AUTOMATED)2022-01-30 22:53:01* Test Item Value Reference Range Interpretation Comme nts POCT GLU (test code = 1153706363) 251 mg/dL 70-110 H Lab Interpretation (test cod e = 33686-2) [facility]2022-01-30 18:02:53* Test Item Value Reference Range Interpretation Comme nts POCT GLU (test code = 8379349087) 269 mg/dL 70-110 H Lab Interpretation (test cod e = 05408-8) Abnormal [facility] GLUCOSE (AUTOMATED)2022-01-30 13:17:23* Test Item Value Reference Range Interpretation Comme nts POCT GLU (test code = 0677195725) 267 mg/dL 70-110 H Lab Interpretation (test cod e = 98523-8) Abnormal [facility] GLUCOSE (AUTOMATED)2022-01-30 02:19:06* Test Item Value Reference Range Interpretation Comme nts POCT GLU (test code = 5493139575) 176 mg/dL 70-110 H Lab Interpretation (test cod e = 01943-2) Abnormal [facility] GLUCOSE (AUTOMATED)2022-01-29 21:11:48* Test Item Value Reference Range Interpretation Comme nts POCT GLU (test code = 0877951761) 140 mg/dL 70-110 H Lab Interpretation (test cod e = 26294-1) Abnormal [facility] GLUCOSE (AUTOMATED)2022-01-29 17:12:44* Test Item Value Reference Range Interpretation Comme nts POCT GLU (test code = 1217424349) 146 mg/dL 70-110 H Lab Interpretation (test cod e = 64484-4) Abnormal [facility] GLUCOSE (AUTOMATED)2022-01-29 12:29:40* Test Item Value Reference Range Interpretation Comme nts POCT GLU (test code = 6815965969) 209 mg/dL 70-110 H Lab Interpretation (test cod e = 51794-9) Abnormal [facility] HospitalProthrombin Time / [id number] 11:48:25* Test Item Value Reference Range Interpretation [...] the indications. Lab Interpretation (test code = 33378-0) Abnormal [facility] THRMPLAS [id number] 11:48:25* Test Item Value Reference Range Interpretation Comme [facility] APTT Patient (test code = 3173-2) See_Comment [Automated messa ge] The system which generated this result transmitted reference range: 26 - 36 Seconds. The reference range was not used to interpret this result as normal/abnormal. Lab Interpretation (test code = 26577-0) Normal [facility] HospitalProthrombin Time / [id number] 11:48:25* Test Item Value Reference Range Interpretation Comme [facility] PROTIME PATIENT (test code = 5964-2) See_Comment H [Automated messa JiaThis] The system which generated this result transmitted reference range: 10.1 - 12.6 Seconds. The reference range was not used to interpret this result as normal/abnormal. INR (test code = 6301-6) Normal INR <1.1; Warfarin Therapeutic range 2.0 to 3.0 or 2.5 to 3.5, depending upon the indications. Lab Interpretation (test code = 06548-4) Abnormal [facility] THRMPLAS [id number] 11:48:25* Test Item Value Reference Range Interpretation Comme [facility] APTT Patient (test code = 3173-2) See_Comment [Automated [employer] JiaThis] The system which generated this result transmitted reference range: 26 - 36 Seconds. The reference range was not used to interpret this result as normal/abnormal. Lab Interpretation (test code = 72733-2) Normal [facility] METABOLIC PANEL (NA, K, CL, CO2, GLUCOSE, BUN, CREATININE, CA)2022-01-29 11:34:06* Test Item Value Reference Range Interpretation Comme [facility] NA (test code = 5862851800) 139 mmol/L 135-145 K (test code = 0789964833) 3.8 mmol/L 3.5-5.0 CL (test code = 3682952032) 113 mmol/L 98-108 H CO2 TOTAL (test code = 4293481421) 20 mmol/L 23-31 L AGAP (test code = 8067123487) 2-16 BUN (test code = 2967731673) 10 mg/dL 7-23 GLUCOSE (test code = 9134256512) 159 mg/dL 70-110 H CREATININE (test code = 2628412916) 0.84 mg/dL 0.50-1.04 CALCIUM (test code = 6752860321) 8.7 mg/dL 8.6-10.6 eGFR (test code = 5643409576) mL/min/1.73m2 KEE (test code = KEE) Association [...] imaging tests). Lab Interpretation (test code = 97600-2) Abnormal [facility] METABOLIC PANEL (NA, K, CL, CO2, GLUCOSE, BUN, CREATININE, CA)2022-01-29 11:34:06* Test Item Value Reference Range Interpretation Comme nts NA (test code = 6886582961) 139 mmol/L 135-145 K (test code = 4607960323) 3.8 mmol/L 3.5-5.0 CL (test code = 6539575053) 113 mmol/L 98-108 H CO2 TOTAL (test code = 1330957082) 20 mmol/L 23-31 L AGAP (test code = 0463424363) 2-16 BUN (test code = 8976899297) 10 mg/dL 7-23 GLUCOSE (test code = 8401776403) 159 mg/dL 70-110 H CREATININE (test code = 3406905375) 0.84 mg/dL 0.50-1.04 CALCIUM (test code = 8731835767) 8.7 mg/dL 8.6-10.6 eGFR (test code = 1652774588) mL/min/1.73m2 KEE (test code = KEE) Association [...] imaging tests). Lab Interpretation (test code = 18350-0) Abnormal [facility] WITH [id number] 11:27:43* Test Item Value Reference Range Interpretation Comme nts WBC (test code = 6690-2) See_Comment [Automated [employer]] The system which generated this result transmitted reference range: 4.30 - 11.10 10*3/?L. The reference range was not used to interpret this result as normal/abnormal. RBC (test code = 789-8) See_Comment [Automated [employer]] The system which generated this result transmitted [...] 32.0 g/dL 31.6-35.1 RDW-SD (test code = 41061-5) 39.8 fL 39.0-49.9 RDW-CV (test code = 788-0) 14.0 % 12.0-15.5 PLT (test code = 777-3) See_Comment [Automated messa ge] The system which generated this result transmitted reference range: 166 - 358 10*3/?L. The reference range was not used to interpret this result as normal/abnormal. MPV (test code = 50878-7) 9.6 fL 9.5-12.9 NRBC/100 WBC (test code = 1382512917) See_Comment [Automated [employer] ssage] The system which generated this result transmitted reference range: 0.0 - 10.0 /100 WBCs. The reference range was not used to interpret this result as normal/abnormal. NRBC x10^3 (test code = 9991348982) <0.01 See_Comment [Automated messa ge] The system which generated this result transmitted reference range: 10*3/?L. The reference range was not used to interpret this result as normal/abnormal. GRAN MAT (NEUT) % (test code = 770-8) 43.9 % IMM GRAN % (test code = 1271126732) 0.30 % LYMPH % (test code = 736-9) 43.5 % MONO % (test code = 5905-5) 7.3 % EOS % (test code = 713-8) 4.3 % BASO % (test code = 706-2) 0.7 % GRAN MAT x10^3(ANC) (test code = 5006549854) 2.65 10*3/uL 1.88-7.09 IMM GRAN x10^3 (test code = 6958524821) <0.03 0.00-0.06 LYMPH x10^3 (test code = 731-0) 2.63 10*3/uL 1.32-3.29 MONO x10^3 (test code = 742-7) 0.44 10*3/uL 0.33-0.92 EOS x10^3 (test code = 711-2) 0.26 10*3/uL 0.03-0.39 BASO x10^3 (test code = 704-7) 0.04 10*3/uL 0.01-0.07 Lab Interpretation (test code = 45165-4) Abnormal [facility] WITH [id number] 11:27:43* Test Item Value Reference Range Interpretation [...] 32.0 g/dL 31.6-35.1 RDW-SD (test code = 99501-9) 39.8 fL 39.0-49.9 RDW-CV (test code = 788-0) 14.0 % 12.0-15.5 PLT (test code = 777-3) See_Comment [Automated messa ge] The system which generated this result transmitted reference range: 166 - 358 10*3/?L. The reference range was not used to interpret this result as normal/abnormal. MPV (test code = 45975-6) 9.6 fL 9.5-12.9 NRBC/100 WBC (test code = 9972825937) See_Comment [Automated me ssage] The system which generated this result transmitted reference range: 0.0 - 10.0 /100 WBCs. The reference range was not used to interpret this result as normal/abnormal. NRBC x10^3 (test code = 1220784829) <0.01 See_Comment [Automated messa ge] The system which generated this result transmitted reference range: 10*3/?L. The reference range was not used to interpret this result as normal/abnormal. GRAN MAT (NEUT) % (test code = 770-8) 43.9 % IMM GRAN % (test code = 3069492792) 0.30 % LYMPH % (test code = 736-9) 43.5 % MONO % (test code = 5905-5) 7.3 % EOS % (test code = 713-8) 4.3 % BASO % (test code = 706-2) 0.7 % GRAN MAT x10^3(ANC) (test code = 5496602830) 2.65 10*3/uL 1.88-7.09 IMM GRAN x10^3 (test code = 6584786797) <0.03 0.00-0.06 LYMPH x10^3 (test code = 731-0) 2.63 10*3/uL 1.32-3.29 MONO x10^3 (test code = 742-7) 0.44 10*3/uL 0.33-0.92 EOS x10^3 (test code = 711-2) 0.26 10*3/uL 0.03-0.39 BASO x10^3 (test code = 704-7) 0.04 10*3/uL 0.01-0.07 Lab Interpretation (test code = 13365-4) [facility]normal [facility]2022-01-29 02:38:57* Test Item Value Reference Range Interpretation Comme nts POCT GLU (test code = 7948737616) 148 mg/dL 70-110 H Lab Interpretation (test cod e = 70017-7) Abnormal [facility] GLUCOSE (AUTOMATED)2022-01-28 21:17:35* Test Item Value Reference Range Interpretation Comme nts POCT GLU (test code = 5270178685) 220 mg/dL 70-110 H Lab Interpretation (test cod e = 41526-2) Abnormal [facility] GLUCOSE (AUTOMATED)2022-01-28 17:43:14* Test Item Value Reference Range Interpretation Comme nts POCT GLU (test code = 3610767887) 274 mg/dL 70-110 H Lab Interpretation (test cod e = 06079-1) Abnormal [facility] GLUCOSE (AUTOMATED)2022-01-28 01:58:00* Test Item Value Reference Range Interpretation Comme nts POCT GLU (test code = 4523510700) 300 mg/dL 70-110 H Lab Interpretation (test cod e = 67639-3) Abnormal [facility]. METABOLIC PANEL ([id number])2022-01-27 17:25:59* Test Item Value Reference Range Interpretation Comme nts NA (test code = 5781804615) 139 mmol/L 135-145 K (test code = 0539867700) 4.4 mmol/L 3.5-5.0 CL (test code = 9405137575) 109 mmol/L 98-108 H CO2 TOTAL (test code = 5481397244) 17 mmol/L 23-31 L AGAP (test code = 0137344320) 2-16 BUN (test code = 0745991775) 11 mg/dL 7-23 GLUCOSE (test code = 3892448392) 189 mg/dL 70-110 H CREATININE (test code = 2714475559) 0.68 mg/dL 0.50-1.04 TOTAL BILI (test code = 0328789102) 0.6 mg/dL 0.1-1.1 CALCIUM (test code = 9718524642) 8.9 mg/dL 8.6-10.6 T PROTEIN (test code = 0656828144) 7.1 g/dL 6.3-8.2 ALBUMIN (test code = 7295883254) 4.3 g/dL 3.5-5.0 ALK PHOS (test code = 4360977904) 75 U/L 34-122 ALTv (test code = 1742-6) 19 U/L 5-35 AST(SGOT) (test code = 0331012618) 19 U/L 13-40 eGFR (test code = 9221625782) mL/min/1.73m2 KEE (test code = KEE) Association [...] imaging tests). Lab Interpretation (test code = 80746-1) Abnormal [facility] [place]. METABOLIC PANEL ([id number])2022-01-27 17:25:59* Test Item Value Reference Range Interpretation Comme nts NA (test code = 6133163445) 139 mmol/L 135-145 K (test code = 5983315783) 4.4 mmol/L 3.5-5.0 CL (test code = 5767189524) 109 mmol/L 98-108 H CO2 TOTAL (test code = 2967587177) 17 mmol/L 23-31 L AGAP (test code = 7375918976) 2-16 BUN (test code = 2272136504) 11 mg/dL 7-23 GLUCOSE (test code = 7347618116) 189 mg/dL 70-110 H CREATININE (test code = 7982645070) 0.68 mg/dL 0.50-1.04 TOTAL BILI (test code = 6801116246) 0.6 mg/dL 0.1-1.1 CALCIUM (test code = 8694229520) 8.9 mg/dL 8.6-10.6 T PROTEIN (test code = 6861917316) 7.1 g/dL 6.3-8.2 ALBUMIN (test code = 4159288265) 4.3 g/dL 3.5-5.0 ALK PHOS (test code = 4344770500) 75 U/L 34-122 ALTv (test code = 1742-6) 19 U/L 5-35 AST(SGOT) (test code = 9024442724) 19 U/L 13-40 eGFR (test code = 8956285634) mL/min/1.73m2 KEE (test code = KEE) Association [...] imaging tests). Lab Interpretation (test code = 13278-3) [facility] Test Item Value Reference Range Interpretation Comme nts LIPASE (test code = 6653033577) 233 U/L 0-220 H Lab Interpretation (test cod e = 62154-4) [facility] 17:25:44* Test Item Value Reference Range Interpretation Comme nts LIPASE (test code = 7184993083) 233 U/L 0-220 H Lab Interpretation (test cod e = 47193-2) [facility]normal [facility] [id number] 17:07:00* Test Item Value Reference Range Interpretation Comme nts WBC (test code = 6690-2) See_Comment [Automated Easy Food[employer] JiaThis] The system which generated this result transmitted reference range: 4.30 - 11.10 10*3/?L. The reference range was not used to interpret this result as normal/abnormal. RBC (test code = 789-8) See_Comment [Automated Easy Fooda ge] The system which generated this result [...] 32.5 g/dL 31.6-35.1 RDW-SD (test code = 63312-2) 39.9 fL 39.0-49.9 RDW-CV (test code = 788-0) 13.8 % 12.0-15.5 PLT (test code = 777-3) See_Comment [Automated Easy Fooda ge] The system which generated this result transmitted reference range: 166 - 358 10*3/?L. The reference range was not used to interpret this result as normal/abnormal. MPV (test code = 65402-4) 9.7 fL 9.5-12.9 NRBC/100 WBC (test code = 3110551908) See_Comment [Automated me ssage] The system which generated this result transmitted reference range: 0.0 - 10.0 /100 WBCs. The reference range was not used to interpret this result as normal/abnormal. NRBC x10^3 (test code = 8714309788) <0.01 See_Comment [Automated messa ge] The system which generated this result transmitted reference range: 10*3/?L. The reference range was not used to interpret this result as normal/abnormal. GRAN MAT (NEUT) % (test code = 770-8) 58.1 % IMM GRAN % (test code = 7654575431) 0.40 % LYMPH % (test code = 736-9) 32.3 % MONO % (test code = 5905-5) 6.4 % EOS % (test code = 713-8) 1.9 % BASO % (test code = 706-2) 0.9 % GRAN MAT x10^3(ANC) (test code = 1309297748) 4.62 10*3/uL 1.88-7.09 IMM GRAN x10^3 (test code = 6271458172) 0.03 10*3/uL 0.00-0.06 LYMPH x10^3 (test code = 731-0) 2.57 10*3/uL 1.32-3.29 MONO x10^3 (test code = 742-7) 0.51 10*3/uL 0.33-0.92 EOS x10^3 (test code = 711-2) 0.15 10*3/uL 0.03-0.39 BASO x10^3 (test code = 704-7) 0.07 10*3/uL 0.01-0.07 Lab Interpretation (test code = 07318-7) [facility]normal [facility] [id number] 16:05:00* Test Item Value Reference Range Interpretation Comme nts POCT PREG (test code = 1605) negative On board controls acceptable with C Line (test code = 3574) present POCT PREG LOT # (test code = 3575) [id number] POCT PREG TEST DATE ( test code = 3576) 05/11/2023 Lab Interpretation (test cod e = 65307-6) Normal [facility] [id number] 16:05:00* Test Item Value Reference Range Interpretation Comme nts POCT PREG (test code = 1605) negative On board controls acceptable with C Line (test code = 3574) present POCT PREG LOT # (test code = 3575) [id number] POCT PREG TEST DATE ( test code = 3576) 05/11/2023 Lab Interpretation (test cod e = 45500-1) Normal [facility] Notes Date/Time Note Provider Source 2024-10-01 15:13:36 Clearance form completed by . Attempted to fax and was unsuccessful, sent through email instead. Called office and was given email to send to. [email or web address] MA [facility] 2024-09-28 10:59:27 Shelby Arias is a 49 year old female Patient was added to schedule, please be advised. Future Appointments Date Time Provider Department Center 09/30/2024 1:00 PM Rosy Borja MD [facility] Hernandez [facility] 2024-09-28 09:35:23 Cardiac Clearance for lap leon received. Patient last seen 08.01.23. Will forward to PSS for assistance in booking for in person clearance. Will let Dr. Arevalo office know needing ov. [facility] 2024-06-01 13:46:13 Patient notified. She will schedule prior to f/u with Dr. Chang [facility] 2024-06-01 13:00:[address] Order for CT scan placed. Thanks. [facility] 2024-06-01 10:36:03 Patient calling because she wanted [...] reasons. ER precautions discussed. Patient verbalized understanding. [facility] 2024-01-20 09:27:[address] Chang's recommendations. She verbalized understanding. [facility] Arina Shook RN [facility] 2024-01-17 13:59:07 I apologize there may have been some miscommunication on my part, she had a CT scan on 07/12/2023, everything looked okay, very tiny lung nodule, would recommend consider a repeat CT scan in one year (07/2024). We can discuss further at clinic. Thanks [facility] 2024-01-16 12:43:19 Copied from [facility] #[id number]. Topic: Appointment - Appointment Request >> Jan 16, 2024 12:42 PM Patient Buzzsaw Operator wrote: Shelby Arias is a 48 year old female Pt is saying Dr Chang wanted her to get another ct done before her upcoming appt with him on 01/23. Do not see any orders for ct. Please advise Melina Osorio [facility] 2023-10-17 08:59:18 Attempted to contact patient with results/recommendations. She has already viewed her normal results on My Chart. LVM for patient to return call to [phone] if she has any questions. Cardiac CTA shows calcium score 0.2 Left main normal LAD normal Ramus branch no significant disease noted Circumflex shows no atherosclerotic disease RCA shows no atherosclerotic disease. Cardiac CTA within normal limits. Recommend to discuss with PCP for noncardiac evaluation for chest pain. Written by Rosy Borja MD on 10/12/2023 6:22 PM HEAD INSPECTOR Seen by patient Shelby Arias on 10/14/2023 8:26 PM INSPECTOR Arina Shook RN [facility] 2023-10-14 16:46:19 Images from the original note were not included. Patient had viewed the results on [employer] Intelligencehart called to see if she had further [...] PCP for noncardiac evaluation for chest pain. [facility] Nafisa Márquez MA [facility] 2023-10-09 13:00:00 Nursing Documentation for Cardiac Coronary [...] was taken to CT and placed on bus driver/monitor showing cardiac rhythm SR. HR is At 1304, B/P is 136/72, and Nitroglycerin 0.8 mg SL was given. After CT, patient was monitored, and at discharge VS were: Time 1315 B/P 116/87, HR 63, Resp 20 Sats 99. IV was D/C'd and a clean, dry, dressing was placed. Pt denies dizziness, chest pain, or shortness of breath and was discharged in stable condition [facility] 2023-08-01 13:30:00 Addended by: ROSY BORJA on: 08/01/2023 02:03 PM Modules accepted: Orders [facility] 2023-04-19 08:54:09 Formatting of this n ote might be different from the original. [facility]coming [facility]. Placed in provider's box. Lisette Stafford [facility] 2023-03-25 10:30:00 Addended by: DARIA BECKER on: 03/25/2023 11:33 AM Modules accepted: Orders [facility]
[2024-11-24] MEDS ORDERED: NA CHLORIDE 0.9% 250 ML ONE ×2 (10:51→13:35)
[2024-11-24] MEDS ORDERED: ONDANSETRON 4 MG/2 ML VIAL ONE ×2 (10:51→13:35)
[2024-11-24] MEDS ORDERED: VANCOMYCIN 1 GM/VIAL ONE (10:51)
[2024-11-24] MEDS ORDERED: MORPHINE 4 MG/ML SYR ONE (10:51)
[2024-11-24 10:55] LABS: Absolute Eosinophils 0.1 K/uL (0-0.5); Absolute Lymphocytes (CBC) 1.4 K/uL (0.7-4.9); Absolute Monocytes 0.3 K/uL (0.1-1.3); Absolute Neutrophil 2.9 K/uL (1.8-8.0); Basophils % 0.9 % (0-1.3); Eosinophils % 2.8 % (0-4.4); Hematocrit 30.6 % (36.0-45.0); Hemoglobin 10.1 g/dL (12.0-15.0); Lymphocytes % 29.1 % (15.3-44.8); MCH 23.8 pg (27.0-35.0); MCV 72.3 fL (80-100); MPV 7.3 fL (7.6-11.3); Monocytes % 6.7 % (3.3-12.3); Neutrophils % 60.5 % (41.7-73.7); Nucleated Red Blood Cells % 0.1 % (0-0); Platelets 278 thou/uL (152-406); RBC Red Blood Cell Count 4.23 M/uL (3.86-4.86); Red Cell Distribution Width 15.5 % (12.1-15.2)
[2024-11-24 11:08] LABS: PT Prothrombin Time 13.9 SECONDS (10-13.0); PTT, Activated Partial Thromb 26.5 SECONDS (27.2-37.4); Protime INR 1.23
[2024-11-24 11:13] LABS: Albumin 3.4 g/dL (3.4-5.0); Bilirubin Total 0.5 mg/dL (0.2-1.0); Globulin 3.5 g/dL (2.3-3.5); Protein, Total 6.9 g/dL (6.4-8.2)
--- NOTE | 2024-11-24 11:36 | EDPHYS ---
Physician Documentation [facility] Name: Shelby Arias Age: 49 yrs Sex: Female : 1975 Arrival Date: 11/24/2024 Time: 09:53 Bed 17 Private MD: ED Physician Karsten Biggs HPI: 11/24 10:26 This 49 yrs old Female presents to ER via Ambulatory with complaints of finger rash. rt 10:26 Patient was seen in the ED 2 days ago for a rash to the middle finger, was diagnosed rt with cellulitis and herpetic hedy. prescribe doxycycline and valacyclovir for which she has been compliantStates that her symptoms have significantly worsened, she has proximal streaking redness to her upper arm. Reports fatigue but denies fever, chills. Denies other acute complaints at this time, symptoms are moderate in severity, no other aggravating or elevating factors.. 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 - Infectious Disease History:: Denies. - Social history:: Smoking status: Reported history of juuling and/or vaping. - Family history:: not pertinent. ROS: 10:26 Constitutional: Negative for fever, chills, and weight loss, Cardiovascular: Negative rt for chest pain, palpitations, and edema, Respiratory: Negative for shortness of breath, cough, wheezing, and pleuritic chest pain, Abdomen/GI: Negative for abdominal pain, nausea, vomiting, diarrhea, and constipation, Skin: Negative for injury, rash, and discoloration, Neuro: Negative for headache, weakness, numbness, tingling, and seizure, 10:26 Skin: Positive for pustules, rash, Exam: 10:26 Constitutional: This is a well developed, well nourished patient who is awake, alert, rt and in no acute distress. Head/Face: Normocephalic, atraumatic. Chest/axilla: Normal chest wall appearance and motion. Nontender with no deformity. No lesions are appreciated. Cardiovascular: Regular rate and rhythm with a normal S1 and S2. No gallops, murmurs, or rubs. Normal PMI, no JVD. No pulse deficits. Respiratory: Lungs have equal breath sounds bilaterally, clear to auscultation and percussion. No rales, rhonchi or wheezes noted. No increased work of breathing, no retractions or nasal flaring. Abdomen/GI: Soft, non-tender, with normal bowel sounds. No distension or tympany. No guarding or rebound. No evidence of tenderness throughout. Neuro: Awake and alert, GCS 15, oriented to person, place, time, and situation. Cranial nerves II-XII grossly intact. Motor strength 5/5 in all extremities. Sensory grossly intact. Cerebellar exam normal. Normal gait. 10:26 Skin: Vesicular rash on erythematous base noted on the dorsum of the proximal right middle finger, there is streaking erythema proximally up to the level of the mid arm, possibly lymphangitis, these areas of skin are tender to the touch, warm. Vital Signs: 10:09 BP 156 / 79; Pulse 68; Resp 16; Temp 98.9(O); Pulse Ox 99% on R/A; Weight 81.65 kg; ss Height 5 ft. 3 in. ; Pain 6/10; 11:00 BP 135 / 84; Pulse 69; Resp 15; Pulse Ox 100% ; me1 12:00 BP 142 / 89; Pulse 73; Resp 12; Pulse Ox 100% ; me1 12:18 Pain 6/10; me1 13:00 BP 161 / 88; Pulse 60; Resp 20; Pulse Ox 100% ; me1 14:00 BP 134 / 83; Pulse 66; Resp 17; Pulse Ox 98% ; me1 15:00 BP 143 / 75; Pulse 74; Resp 16; Pulse Ox 98% ; me1 16:00 BP 145 / 90; Pulse 80; Resp 16; Pulse Ox 98% ; me1 10:09 Body Mass Index 31.89 (81.65 kg, 160.02 cm) ss 10:09 Pain Scale: Adult ss 12:18 Pain Scale: Adult me1 MDM: 10:08 Medical Screening Exam initiated rt 11:35 Differential Diagnosis Cellulitis, herpetic hedy, lymphangitis. Data reviewed: vital rt signs, nurses notes, lab test result(s). Consideration of Admission/Observation Patient was admitted/placed on observation. Management of patient was discussed with the following: Hospitalist: Agrees to admit. I considered the following discharge prescriptions or medication management in the emergency department Medications were administered in the Emergency Department. See MAR. Test considered but Not performed: Ultrasound Low suspicion for DVT, ultrasound is not indicated. Care significantly affected by the following chronic conditions: Diabetes, Chronic Obstructive Pulmonary Disease. Counseling: I had a detailed discussion with the patient and/or guardian regarding the historical points, exam findings, and any diagnostic results supporting the discharge/admit diagnosis, lab results, the need for further work-up and treatment in the hospital. Response to treatment: There is no appreciated change of the patient's symptoms at this time. 11/24 10:20 Order name: Blood Culture Adult (2) rt 11/24 10:20 Order name: CBC with Diff; Complete Time: 11:04 rt 11/24 10:20 Order name: CMP; Complete Time: 11:14 rt 11/24 10:20 Order name: Lactate w/ 2H reflex if indic.; Complete Time: 11:14 rt 11/24 10:20 Order name: Protime (+inr); Complete Time: 11:14 rt 11/24 10:20 Order name: Ptt, Activated; Complete Time: 11:14 rt 11/24 12:27 Order name: CBC with Automated Diff EDMS 11/24 12:27 Order name: CBC with Automated Diff EDMS / 12:27 Order name: CBC with Automated Diff EDMS / 12:27 Order name: CBC with Automated Diff EDMS / 12:27 Order name: CBC with Automated Diff EDMS / 12:27 Order name: CBC with Automated Diff EDMS / 12:27 Order name: Comprehensive Metabolic Panel EDMS 11/24 12:27 Order name: Comprehensive Metabolic Panel EDMS 11/24 12:27 Order name: Comprehensive Metabolic Panel EDMS 11/24 12:27 Order name: Comprehensive Metabolic Panel EDMS 11/24 12:27 Order name: Comprehensive Metabolic Panel EDMS 11/24 12:27 Order name: Comprehensive Metabolic Panel EDMS 11/24 12:32 Order name: Abdomen ; Complete Time: 13:02 EDMS 11/24 12:32 Order name: Head Brain Wo Cont; Complete Time: 13:02 EDMS 11/24 10:20 Order name: Accucheck; Complete Time: 11:37 rt 11/24 10:20 Order name: Cardiac monitoring; Complete Time: 11:37 rt 11/24 10:20 Order name: IV Saline Lock - Large Bore; Complete Time: 10:47 rt 11/24 10:20 Order name: Labs collected and sent; Complete Time: 10:47 rt 11/24 10:20 Order name: O2 Per Protocol; Complete Time: 10:47 rt 11/24 10:20 Order name: O2 Sat Monitoring; Complete Time: 10:47 rt 11/24 10:20 Order name: Vital Signs; Complete Time: 10:47 rt Administered Medications: 11:05 Drug: morphine IVP or IV 4 mg IVP once over 4 mins Route: IVP; Infused Over: 4 mins; me1 Site: left forearm; 12:18 Follow up: Pain 6/10 Adult; Response: No adverse reaction; Pain is decreased me1 11:05 Drug: Ondansetron IVP 4 mg IVP once; over 2 minutes Route: IVP; Site: left forearm; me1 12:18 Follow up: Response: No adverse reaction; Nausea is decreased me1 11:19 Drug: vancoMYCIN IVPB 1 grams IVPB once over 2 hrs Route: IVPB; Infused Over: 2 hrs; ss Site: left forearm; 12:15 Follow up: Response: No adverse reaction; IV Status: Completed infusion; IV Intake: me1 250ml Disposition Summary: 11/24/24 11:35 Hospitalization Ordered Notes: Hospitalization Status: Inpatient Admission rt Provider: Michael Kaiser rt Location: Telemetry/[facility] (Inpatient) rt Condition: Stable rt Problem: new rt Symptoms: are unchanged rt Bed/Room Type: Standard rt Room Assignment: 407(11/24/24 15:11) bd Diagnosis - Herpetic hedy to right third finger rt - Cellulitis to right upper extremity rt Forms: - Medication Reconciliation Form rt - SBAR form rt - Leadership Thank You Letter rt Signatures: Dispatcher [facility] Criss Madsen Shelby, RN RN ss Karsten Biggs MD MD rt Eddleman, Renee, RN RN me1 Corrections: (The following items were deleted from the chart) 10:21 10:21 BLOOD CULTURE*+BA.LAB.BRZ ordered. EDMS EDMS 10:21 10:21 CBC+H.LAB.BRZ ordered. EDMS EDMS 10:21 10:21 COMPREHENSIVE METABOLIC PANEL+C.LAB.BRZ ordered. EDMS EDMS 10:21 10:21 LACTATE+C.LAB.BRZ ordered. EDMS EDMS 10:21 10:21 PROTIME (+INR)+COAG.LAB.BRZ ordered. EDMS EDMS 10:21 10:21 PTT, ACTIVATED+COAG.LAB.BRZ ordered. EDMS EDMS 12:32 12:27 CT-ABD ordered. EDMS EDMS 12:32 12:27 CT-HEAD/BRAIN W/O CONTRAST ordered. EDMS EDMS 15:11 11:35 rt bd
--- NOTE | 2024-11-24 11:36 | ER ---
Nurse's Notes [facility] Name: Shelby Arias Age: 49 yrs Sex: Female : 1975 Arrival Date: 11/24/2024 Time: 09:53 Bed 17 Private MD: Diagnosis: Herpetic hedy to right third finger;Cellulitis to right upper extremity Presentation: 11/24 10:09 Chief complaint: Patient states: rash to finger x 4 days. Pt was seen in ER 2 days ago ss and prescribed medications that are not working. Coronavirus screen: Client denies travel out of the [place] in the last 14 days. Ebola Screen: Patient denies exposure to infectious person. Patient denies travel to an Ebola-affected area in the 21 days before illness onset. Initial Sepsis Screen: Does the patient meet any 2 criteria? No. Patient's initial sepsis screen is negative. Does the patient have a suspected source of infection? No. Patient's initial sepsis screen is negative. Risk Assessment: Do you want to hurt yourself or someone else? Patient reports no desire to harm self or others. Onset of symptoms was November 20, 2024. 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 - Infectious Disease History:: Denies. - Social history:: Smoking status: Reported history of juuling and/or vaping. - Family history:: not pertinent. Screenin:10 [facility] ED Fall Risk Assessment (Adult) History of falling in the last 3 months, me1 including since admission No falls in past 3 months (0 pts) Confusion or Disorientation No (0 pts) Intoxicated or Sedated No (0 pts) Impaired Gait No (0 pts) Mobility Assist Device Used No (0 pt) Altered Elimination No (0 pt) Score/Fall Risk Level 0 - 2 = Low Risk Maintained a safe environment, Provided non-skid footwear, Hourly rounding (assess needs \T\ fall precautionary measures) done. Abuse screen: Denies threats or abuse. Nutritional screening: No deficits noted. Tuberculosis screening: No symptoms or risk factors identified. Assessment: 10:10 General: Appears uncomfortable, well groomed, well developed, well nourished, Behavior me1 is calm, cooperative, appropriate for age, Reports rash to finger x 4 days. Pt was seen in ER 2 days ago and prescribed medications that are not working. Pain: Complains of pain in dorsal aspect of middle phalanx of right middle finger Pain does not radiate. Pain currently is 6 out of 10 on a pain scale. Quality of pain is described as burning, throbbing, Pain began 2-3 days ago. Is continuous. Neuro: Level of Consciousness is awake, alert, obeys commands, Oriented to person, place, time, situation, Appropriate for age. Cardiovascular: Patient's skin is warm and dry. Respiratory: Airway is patent Respiratory effort is even, unlabored, Respiratory pattern is regular, symmetrical. GI: No signs and/or symptoms were reported involving the gastrointestinal system. : No signs and/or symptoms were reported regarding the genitourinary system. EENT: No signs and/or symptoms were reported regarding the EENT system. Derm: Wound noted dorsal aspect of middle phalanx of right middle finger. Musculoskeletal: Reports pain in right hand. Vital Signs: 10:09 BP 156 / 79; Pulse 68; Resp 16; Temp 98.9(O); Pulse Ox 99% on R/A; Weight 81.65 kg; ss Height 5 ft. 3 in. ; Pain 6/10; 11:00 BP 135 / 84; Pulse 69; Resp 15; Pulse Ox 100% ; me1 12:00 BP 142 / 89; Pulse 73; Resp 12; Pulse Ox 100% ; me1 12:18 Pain 6/10; me1 13:00 BP 161 / 88; Pulse 60; Resp 20; Pulse Ox 100% ; me1 14:00 BP 134 / 83; Pulse 66; Resp 17; Pulse Ox 98% ; me1 15:00 BP 143 / 75; Pulse 74; Resp 16; Pulse Ox 98% ; me1 16:00 BP 145 / 90; Pulse 80; Resp 16; Pulse Ox 98% ; me1 10:09 Body Mass Index 31.89 (81.65 kg, 160.02 cm) ss 10:09 Pain Scale: Adult ss 12:18 Pain Scale: Adult wa1 ED Course: 09:57 Patient arrived in ED. al6 09:58 Karsten Biggs MD is Attending Physician. rt 10:10 Patient has correct armband on for positive identification. Bed in low position. Call me1 light in reach. Side rails up X2. Provided Education on: POC. Verbalized understanding.. Client placed on continuous cardiac and pulse oximetry monitoring. NIBP monitoring applied. cardiac monitor on. Pulse ox on. NIBP on. 10:10 No provider procedures requiring assistance completed. me1 10:14 Triage completed. ss 10:14 Arm band placed on right wrist. ss 10:15 Renee Hoover, MAJOR is Primary Nurse. me1 10:40 Initial lab(s) drawn, by wa, sent to lab. First set of blood cultures drawn by wa. me1 10:46 Inserted saline lock: 22 gauge in left antecubital area, using aseptic technique. me1 10:47 Blood Culture Adult (2) Sent. me1 10:47 CBC with Diff Sent. me1 10:47 CMP Sent. me1 10:47 Lactate w/ 2H reflex if indic. Sent. me1 10:47 Protime (+inr) Sent. me1 10:47 Ptt, Activated Sent. me1 10:52 Second set of blood cultures drawn by wa. me1 11:34 Michael Kaiser PA is Hospitalizing Provider. rt 12:47 Abdomen In Process Unspecified. EDMS 12:47 Head Brain Wo Cont In Process Unspecified. EDMS 16:35 Patient admitted, IV remains in place. me1 Administered Medications: 11:05 Drug: morphine IVP or IV 4 mg IVP once over 4 mins Route: IVP; Infused Over: 4 mins; wa1 Site: left forearm; 12:18 Follow up: Pain 6/10 Adult; Response: No adverse reaction; Pain is decreased me1 11:05 Drug: Ondansetron IVP 4 mg IVP once; over 2 minutes Route: IVP; Site: left forearm; me1 12:18 Follow up: Response: No adverse reaction; Nausea is decreased me1 11:19 Drug: vancoMYCIN IVPB 1 grams IVPB once over 2 hrs Route: IVPB; Infused Over: 2 hrs; ss Site: left forearm; 12:15 Follow up: Response: No adverse reaction; IV Status: Completed infusion; IV Intake: me1 250ml Medication: 10:10 VIS not applicable for this client. me1 Intake: 12:15 IV: 250ml; Total: 250ml. me1 Outcome: 11:35 Decision to Hospitalize by Provider. rt 16:35 Admitted to Tele accompanied by tech, via wheelchair, room 407, with chart, Report me1 called to faxed, receipt confirmed with Rachna 16:35 Condition: stable 16:35 Instructed on the need for admit, 16:36 Patient left the ED. iw Signatures: Dispatcher [employer] Angela Lucero RN RN iw Vianey Dawson RN RN ss Karsten Biggs MD MD rt Renee Hoover RN RN me1 Argelia Johnson6 Corrections: (The following items were deleted from the chart) 11:38 10:52 First set of blood cultures drawn Second set of blood cultures drawn me1 me1 16:32 10:09 Chief complaint: Patient states: rash to finger x 4 days. Pt was seen in ER 2 me1 days ago and prescribed medications that are not working ss
[2024-11-24] MEDS ORDERED: ACETAMINOPHEN 500 MG TAB PO PRN (12:19)
--- NOTE | 2024-11-24 12:26 | P.HP ---
Certification for Inpatient With expected LOS: >2 Midnights Patient will require the following post-hospital care: None Practitioner: I am a practitioner with admitting privileges, knowledge of patient current condition, hospital course, and medical plan of care. Services: Services provided to patient in accordance with Admission requirements found in Title 42 Section 412.3 of the Code of Federal Regulations Patient History Date of Service: 11/24/24 Reason for admission: Right middle finger infection History of Present Illness: 49-year-old patient presented with herpes infection on the right middle finger couple of days back, she was sent home on doxycycline and valacyclovir, she presented due to worsening erythema and extension of erythema from right hand to the right forearm and upper arm, due to cellulitis extension, we are asked to admit her. She is complaining of pain all over the right arm, she has vesicles on the right middle finger. She has chronic headache, chronic double vision and blurry vision but in the last couple of days it is getting worse along with the right arm pain. She is complaining of nausea and vomiting for the last couple of days. She has chronic issues with abdominal pain, she had cholecystectomy 1 month back, now she is feeling more pain in the right upper quadrant. She has chronic issues with alternating constipation and diarrhea. No blackouts. No cough or sputum production. No chest pain or shortness of breath. No blood in the urine or stool. No fever. No lower extremity edema. No recent change in the weight. Review of systems: All other 10 point review of systems are negative other than as mentioned above. Allergies and medications: Reviewed, as per med rec EMR. 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 Occasional alcohol, no cigarette smoking but she vapes Family history: Father had history of ID and CVA Physical examination: Vital signs: Reviewed, as per EMR. General appearance: Alert and comfortable HEENT: Extraocular movements intact, oral mucosa moist. 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 Mild tenderness present all over the right upper extremity Allergies cefazolin [From Ancef] Allergy (Verified 10/02/24 15:12) Anaphylaxis hydroxyzine [From Vistaril] Allergy (Verified 10/02/24 15:12) MIGRAINE venlafaxine [From Effexor] Allergy (Verified 10/02/24 15:12) FACE TINGLING Home Medications: Cariprazine HCl [Vraylar] 1.5 mg PO DAILY 10/02/24 Dexlansoprazole [Dexlansoprazole Dr] 60 mg PO DAILY 10/02/24 Duloxetine HCl 30 mg PO DAILY 10/02/24 Duloxetine HCl 60 mg PO DAILY 10/02/24 Eszopiclone 3 mg PO BEDTIME 10/02/24 Ezetimibe [Zetia] 10 mg PO BEDTIME 10/02/24 Fenofibrate [Tricor] 48 mg PO DAILY 10/02/24 Insulin Degludec [Tresiba Flextouch U-200] 22 unit SQ BEDTIME 10/02/24 Lactulose 30 ml PO PRN PRN 10/02/24 Lamotrigine [Lamotrigine ER] 100 mg PO DAILY 10/02/24 Lamotrigine [Lamotrigine ER] 300 mg PO DAILY 10/02/24 Metformin HCl 1,000 mg PO BID 10/02/24 Mirtazapine 15 mg PO BEDTIME 10/02/24 Ondansetron [Ondansetron Odt] 8 mg PO PRN PRN 10/02/24 Propranolol HCl 10 mg PO BID 10/02/24 Semaglutide [Ozempic] 0.5 mg SQ EVERY 7TH DAY 10/02/24 Vitamin D [Drisdol] 50,000 unit PO EVERY 7TH DAY 10/02/24 clonazePAM [Clonazepam] 1.5 mg PO DAILYPRN PRN 10/02/24 Codeine/APAP [Tylenol W/Codeine #3 tab] 1 tab PO Q6HP PRN #1 tab 10/05/24 Physical Examination - Studies Laboratory Data (last 24 hrs) 11/24/24 11/24/24 11/24/24 10:40 10:40 10:40 WBC 4.80 Hgb 10.1 L Hct 30.6 L Plt Count 278 PT 13.9 H INR 1.23 APTT 26.5 L Sodium 135 L Potassium 4.0 BUN 9 Creatinine 0.68 Glucose 171 H Total Bilirubin 0.5 AST 132 H ALT 95 H Alkaline Phosphatase 58 Assessment and Plan - Plan 1. Right middle finger herpes infection along with cellulitis which is spreading to the right forearm and upper arm: Start Aciclovir, start IV vancomycin and cefepime, infectious disease consult requested. 2. Abdominal pain with recent cholecystectomy: CT abdomen is negative, surgical consult requested. 3. Chronic anemia: Monitor closely 4. 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 5. Transaminitis: Monitor closely 6. COPD: Continue inhalers 7. Diabetes mellitus type 2: Continue sliding scale insulin, diabetic diet for now 8. Fibromyalgia: Continue home medications 9. GERD: Continue PPI 10. Neuropathy: Continue home medications 11. History of SVT: Continue propanol DVT prophylaxis: Lovenox CODE STATUS: She would like to be full code. I did discuss all the above plan with the patient, she understands and agrees with the plan. - Advance Directives Does patient have a Living Will: No Does patient have a Durable POA for Healthcare: No
--- NOTE | 2024-11-24 12:50 | RAD REPORT ---
EXAM: CT brain without contrast HISTORY: headache COMPARISON: 06/16/2024 TECHNIQUE: Multiple contiguous axial images were obtained and a CT of the brain without contrast. Sag ittal and coronal reformats were performed. One or more of the following dose reduction techniques were used: Automated exposure control, adjust ment of the mA and/or kV according to patient size, and/or iterative reconstruction. FINDINGS: No evidence of hydrocephalus, intracranial hemorrhage, or extra-axial fluid collection. The brain is normal in morphology. Right-sided ventriculostomy tube is in place in expected location . No evidence of midline shift or areas of brain edema. The calvarium is intact. The visualized paranasal sinuses and mastoid air cells are essentially clear . IMPRESSION: No evidence of acute intracranial abnormality.
--- NOTE | 2024-11-24 12:52 | RAD REPORT ---
EXAMINATION: CT ABDOMEN AND PELVIS WITHOUT CONTRAST CLINICAL INDICATION: abdominal pain TECHNIQUE: CT abdomen and pelvis was performed, without IV contrast, as per department protocol. Axia l, sagittal and coronal reconstructions were obtained. One or more of the following dose reduction techniques were used: Automated exposure control, adjustment of the mA and kV according to the patien t size, and iterative reconstruction. Unless otherwise specified, incidental findings do not require dedicated imaging follow-up. COMPARISON: 06/26/2024 FINDINGS: The lack of intravenous contrast limits the sensitivity of this exam for evaluation of solid visceral organs, vascular structures, and retroperitoneum. LOWER CHEST: The visualized lung bases are clear. Postsurgical changes about the stomach. LIVER:Normal in size and contour. No focal lesion. Cholecystectomy clips. SPLEEN: Normal size. No focal lesion. PANCREAS: No mass, ductal dilation, or paul-pancreatic fluid. ADRENALS: Normal; no mass. KIDNEYS AND URETERS: Normal size and contour. No hydronephrosis. URINARY BLADDER: Normal contour. GASTROINTESTINAL TRACT: No evidence of bowel obstruction, significant free fluid, free air or abscess . Fecalization of distal small bowel loops. APPENDIX: Appendix not visualized, but no inflammatory changes in region of appendix. LYMPH NODES: No lymphadenopathy. 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 Mild lower lumbar spondylosis. ADDITIONAL FINDINGS: Shunt tubing is present terminating in the anterior pelvis on the left. IMPRESSION: No acute or concerning abnormalities in the abdomen or pelvis, with evaluation limited by lack of IV contrast.
[2024-11-24] MEDS: NA CHLORIDE 0.9% 1,000 ML IV SCH (13:00)
[2024-11-24] MEDS: VANCOMYCIN 500 MG in NA CHLORIDE 0.9% 100 ML IVPB ONE (13:15)
[2024-11-24] MEDS ORDERED: NA CHLORIDE 0.9% 1,000 ML ONE (13:35)
[2024-11-24] MEDS ORDERED: ACYCLOVIR 400 MG TABLET ONE (13:35)
[2024-11-24] MEDS ORDERED: VANCOMYCIN 500 MG/VIAL ONE (13:35)
[2024-11-24] MEDS: ONDANSETRON 4 MG/2 ML VIAL IV PRN (13:43)
[2024-11-24] MEDS: ACYCLOVIR 400 MG TABLET PO SCH (13:43)
[2024-11-24] MEDS ORDERED: D10W 125 ML IV PRN (14:49)
[2024-11-24] MEDS ORDERED: GLUCAGON 1 MG/VIAL IM PRN (14:49)
[2024-11-24 14:52] VITALS: BMI 31.8
[2024-11-24] MEDS: lamoTRIgine 150 MG TAB PO ONE (15:31)
[2024-11-24] MEDS: INSULIN REGULAR (HUMAN) 100 UNIT/ML SQ SCH (16:30)
[2024-11-24] MEDS ORDERED: ESZOPICLONE 1 MG TAB PO PRN (17:09)
[2024-11-24] MEDS: FLU (Fluarix Triv) TS24-25(6MOS UP)/PF 45 MCG/0.5 ML Syringe IM ONE (17:11)
[2024-11-24] MEDS: DULOXETINE 30 MG CAP PO SCH (17:18)
[2024-11-24] MEDS: MORPHINE 2 MG/ML SYR IV PRN (17:18)
[2024-11-24] MEDS: VALACYCLOVIR 500 MG TAB PO SCH (21:01)
[2024-11-24] MEDS: PROPRANOLOL HCL 10 MG TAB PO SCH (21:01)
[2024-11-24] MEDS: MIRTAZAPINE 15 MG TAB PO SCH (21:02)
[2024-11-24] MEDS: CEFEPIME 2 GM in NA CHLORIDE 0.9% 100 ML IV SCH (21:02)
[2024-11-24] MEDS: VANCOMYCIN 1.5 GM in NA CHLORIDE 0.9% 500 ML IVPB SCH (23:15)
--- NOTE | 2024-11-25 03:02 | CON ---
History Of Present Illness: This is a 49-year-old female I was consulted for evaluation of right fin diana questionable herpetic infection with pustule, being treated with doxycycline and valacyclovir, co ntinued to worsen with right forearm having erythematous changes. The patient decided to come to the hospital. The patient denies any headache, nausea, vomiting, chest pain, abdominal pain, constipati on, diarrhea. She has history of chronic headaches, double vision, and worsening right arm pain. I was consulted for evaluation of antibiotic management and treatment of cellulitis of right arm and po ssible herpetic infection. Past Medical History: 1. Genital herpes and right middle finger herpetic infection. 2. Chronic anemia. 3. COPD. 4. Diabetes mellitus type 2. 5. Fibromyalgia. 6. GERD. 7. Neuropathy. 8. SVT. 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 Social History: Nonsmoker. Occasionally used vape. Current Medications: Include cefepime, vancomycin, and acyclovir. See MARs for other medications. Allergies: CEFAZOLIN, VISTARIL, AND EFFEXOR. Review of Systems: A 10-point review was performed. Physical Examination: General: This is a 49-year-old female, seen in the emergency department, not in any acute cardiopulm onary distress. Vital Signs: Temperature 97, pulse 86, respirations 17, blood pressure 165/83. HEENT: Unremarkable. Neck: Supple. Lungs: Basal crackles. Heart: S1, S2. Regular. Abdomen: Soft, nontender. Bowel sounds present. Extremities: No edema. Right hand with erythematous changes on the forearm and pustular lesions not ed in the right middle finger. Laboratory Data: Shows WBC 4.8, hemoglobin 10.1, platelets are 278. BUN 9, creatinine 0.6, glucose 171. Assessment/plan: 1. Right arm cellulitis with pustular lesion to the right middle finger, concern regarding herpetic i nfection and history of genital herpes in a 49-year-old female. 2. Chronic obstructive pulmonary disease. 3. Diabetes mellitus. 4. Fibromyalgia. 5. Anemia of chronic disease. 6. Neuropathy. Continue to monitor signs of infection with WBC and fever trends. Consider applying Silvadene to the right hand and covering with Kerlix. Consider changing acyclovir to Valtrex. We will follow the manohar falcon as needed. Thank you, Dr. Rodriguez, for consult. YANELY/ROBYNL Voice ID: [id number] Report ID: [id number]
[2024-11-25 06:00] LABS: Anion Gap 10.3 mEq/L (5.0-15.0); Bilirubin Total 0.3 mg/dL (0.2-1.0); Globulin 2.9 g/dL (2.3-3.5); Potassium 4.3 mEq/L (3.5-5.1); Protein, Total 5.9 g/dL (6.4-8.2)
[2024-11-25 07:54] LABS: Absolute Basophils 0.1 K/uL (0-0.5); Absolute Eosinophils 0.2 K/uL (0-0.5); Absolute Lymphocytes (CBC) 1.5 K/uL (0.7-4.9); Absolute Monocytes 0.3 K/uL (0.1-1.3); Basophils % 1.3 % (0-1.3); Eosinophils % 4.3 % (0-4.4); Hematocrit 29.1 % (36.0-45.0); Hemoglobin 9.3 g/dL (12.0-15.0); Lymphocytes % 37.3 % (15.3-44.8); MCH 23.2 pg (27.0-35.0); MCV 72.6 fL (80-100); MPV 7.3 fL (7.6-11.3); Monocytes % 7.3 % (3.3-12.3); Neutrophils % 49.8 % (41.7-73.7); Platelets 230 thou/uL (152-406); RBC Red Blood Cell Count 4.01 M/uL (3.86-4.86); Red Cell Distribution Width 15.8 % (12.1-15.2)
[2024-11-25] MEDS: ENOXAPARIN 40 MG/0.4 ML SQ SCH (08:24)
[2024-11-25] MEDS: PANTOPRAZOLE 40MG TABLET PO SCH (08:29)
[2024-11-25] MEDS ORDERED: lamoTRIgine 150 MG TAB PO SCH (09:00)
[2024-11-25] MEDS: lamoTRIgine 150 MG TAB PO SCH (09:38)
--- NOTE | 2024-11-25 09:57 | CON ---
Date of Consultation: 11/24/2024 Reason For Service: Right middle finger necrotic wound with cellulitis extending in the arm and the forearm and also they want me to take a look at the belly due to history of chronic abdominal pain. History Of Present Illness: This is case of a 49-year-old patient known by the Surgical Service due to history in the past of cholecystectomy due to abdominal pain several months ago. The pain improve d significantly. There is no dysuria, hematuria, hematochezia, melena. That is not the reason why s jimena is in at this moment. She is in this because she has cellulitis of the right middle finger extend ing to the hand and to the forearm of unknown origin. She has history of the same finger pyoderma ga ngrenosum years ago and that is what this looks like at this moment. Etiology of that is unknown. T he cellulitis extending to the finger, hand, and proximal forearm. She has been on antibiotics, even antiviral due to history of herpes, but seems not to be improving, so she was admitted to the [facility]. Review of Systems: Right hand and forearm cellulitis with a necrotic ulcer on the dorsal aspect of the right proximal ph alanx of the right third finger. There is no nausea, vomiting, or abdominal tenderness. There is no dysuria, hematuria, hematochezia, melena. No recent traveling out of the country. No family member sick at home. Past Medical History: Genital herpes; chronic anemia; COPD; pyoderma gangrenosum of the same finger in the past, another location; diabetes; fibromyalgia; GERD; neuropathy; SVT. Past Surgical History: Cholecystectomy, ankle surgery, gastric sleeve, SUPERVISOR FINISHING shunt, carpal tunnel and n sebastian surgery. Social History: She does smoke. Occasionally she vapes. She does not drink alcohol. Medications: Acyclovir, cefepime, vancomycin. Allergies: CEFAZOLIN, VISTARIL, AND EFFEXOR. Review of Systems: See HPI, 10 points otherwise unremarkable. Physical Examination: General: The patient is awake, alert, in no acute distress. HEENT: Pupils are equal and reactive. Anicteric. Neck: Supple. Chest: Clear. Abdomen: Soft and depressible. No guarding or rebound. No peritoneal signs. Pelvis: Stable. Breast, Genitalia, Rectal: Deferred. Extremities: Good capillary refill. Over the right third finger in the dorsum, patient has a necrotic ulcer about 2 x 2.5 cm, multiple pu stules associated with it, and also evidence of what it may be pyoderma gangrenosum. The etiology of that is unknown. There is also a consideration since the patient had herpes in the past to be a les ion associated with it, that is still in the working diagnosis. From a surgical standpoint, since th ey have pustules in that area and the infection is spread into the forearm, we are going to clean akiko t wound, sent it for biopsy, removed the pus from that area and perform debridement. The benefits, a lternatives, and risks fully explained to the patient which include but not limited to infection, ble eding, damage to adjacent structures, anesthesia complication, recurrence, DC, even . She also understands this may require wound care. Cultures will be sent. N.p.o. after midnight. SABRINA/NAIMA Voice ID: [id number] Report ID: [id number]
[2024-11-25] MEDS: NA CHLORIDE 0.9% 1,000 ML ONE (10:24)
--- NOTE | 2024-11-25 12:38 | P.PN ---
Subjective Date of Service: 11/25/24 Chief Complaint: Right middle finger infection Subjective: No chest pain or shortness of breath. No nausea or vomiting. No abdominal pain. No obvious bleeding. Looks comfortable in the bed. Right arm pain improving but ongoing. Objective: General appearance: Alert and comfortable CVS: Normal S1 and S2 Lungs: Clear to auscultation bilaterally Abdomen: Soft, bowel sounds present, no tenderness Extremities: No lower extremity edema Right hand: Pustules on the middle finger got ruptured, erythema present. Erythema of the right forearm and arm is a little better today. Physical Examination - Vital Signs Temperature: 97.6 F Blood Pressure: 135/71 Pulse: 60 Respirations: 14 Pulse Ox (%): 99 Assessment And Plan - Plan 1. Right middle finger herpes infection along with cellulitis which is spreading to the right forearm and upper arm - Continue Valtrex antibiotics and IV antibiotics, ID and surgery following. Appreciate recommendations, plan for debridement today. 2. Abdominal pain with recent cholecystectomy: CT abdomen is negative, surgical consult requested. - Symptoms better today 3. Chronic anemia: Monitor closely 4. 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 5. Transaminitis: Monitor closely 6. COPD: Continue inhalers 7. Diabetes mellitus type 2: Continue sliding scale insulin, diabetic diet for now 8. Fibromyalgia: Continue home medications 9. GERD: Continue PPI 10. Neuropathy: Continue home medications 11. History of SVT: Continue propanol DVT prophylaxis: Lovenox CODE STATUS: full code. I did discuss all the above plan with the patient, she understands and agrees with the plan.
[2024-11-25] MEDS ORDERED: LIDOCAINE 1% MPF 5 ML VIAL ONE (13:26)
[2024-11-25] MEDS ORDERED: propofoL 200 MG/20 ML VIAL IV ONE (13:26)
[2024-11-25] MEDS ORDERED: MIDAZOLAM HCL 2 MG/2 ML INJ ONE (13:26)
[2024-11-25] MEDS ORDERED: FENTANYL CITR 100 MCG/2 ML ONE (13:27)
--- NOTE | 2024-11-25 13:39 | P.BOP ---
Preoperative diagnosis: right hand anf forearm cellulitis, necrotic purulent wound R 3rd finger Postoperative diagnosis: same, pyoderma gangrenosum Primary procedure: Excisional subQ debridement necrotic purulent wound R 3rd finger Secondary procedure: 3x3cm Estimated blood loss: <5cc Specimen: necrotic tissue, culture Findings: finding similar to pyoderma gangrenosum, bx pending. Anesthesia: General Complications: None Transferred to: Recovery Room Condition: Good
[2024-11-25] MEDS: COLLAGENASE 30 GM OINTMENT TOP ONE (13:56)
[2024-11-25] MEDS: ONDANSETRON 4 MG/2 ML VIAL ONE (14:27)
[2024-11-25] MEDS: MORPHINE 2 MG/ML SYR ONE (14:28)
[2024-11-25] MEDS: VANCOMYCIN 1.5 GM in NA CHLORIDE 0.9% 500 ML IVPB SCH (15:23)
[2024-11-26 06:34] LABS: Absolute Eosinophils 0.2 K/uL (0-0.5); Absolute Lymphocytes (CBC) 1.4 K/uL (0.7-4.9); Absolute Monocytes 0.3 K/uL (0.1-1.3); Absolute Neutrophil 2.1 K/uL (1.8-8.0); Basophils % 0.9 % (0-1.3); Eosinophils % 4.3 % (0-4.4); Hematocrit 26.8 % (36.0-45.0); Hemoglobin 8.8 g/dL (12.0-15.0); Lymphocytes % 34.6 % (15.3-44.8); MCH 23.9 pg (27.0-35.0); MCHC 32.6 g/dL (32.0-36.0); MCV 73.3 fL (80-100); MPV 7.8 fL (7.6-11.3); Monocytes % 7.7 % (3.3-12.3); Neutrophils % 52.5 % (41.7-73.7); Nucleated Red Blood Cells % 0.1 % (0-0); Platelets 190 thou/uL (152-406); RBC Red Blood Cell Count 3.66 M/uL (3.86-4.86); Red Cell Distribution Width 15.7 % (12.1-15.2)
[2024-11-26 06:53] LABS: Bilirubin Total 0.3 mg/dL (0.2-1.0); Globulin 3.1 g/dL (2.3-3.5); Protein, Total 6.1 g/dL (6.4-8.2)
[2024-11-26] MEDS: ALBUTEROL INHALER 200 PUFF/6.7 GM IH PRN (08:57)
--- NOTE | 2024-11-26 14:03 | P.PN ---
Subjective Date of Service: 11/26/24 Chief Complaint: Right middle finger infection Subjective: No chest pain or shortness of breath. No nausea or vomiting. No abdominal pain. No obvious bleeding. Looks comfortable in the bed. Right arm pain improving. c/o dysuria. Objective: General appearance: Alert and comfortable CVS: Normal S1 and S2 Lungs: Clear to auscultation bilaterally Abdomen: Soft, bowel sounds present, no tenderness Extremities: No lower extremity edema Right hand: dressing present on middle finger. Erythema of the right forearm and arm is almost resolved. Physical Examination - Vital Signs Temperature: 98.2 F Blood Pressure: 139/72 Pulse: 65 Respirations: 14 Pulse Ox (%): 99 Assessment And Plan - Plan 1. Right middle finger herpes infection along with cellulitis which is spreading to the right forearm and upper arm - Continue Valtrex and IV antibiotics - ID and surgery following. Appreciate recommendations - had debridement 11/25, f/u on cultures. 2. Abdominal pain with recent cholecystectomy: CT abdomen is negative, surgical consult requested. - Symptoms better today 3. Chronic anemia: Monitor closely 4. 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 5. Transaminitis: Monitor closely 6. COPD: Continue inhalers 7. Diabetes mellitus type 2: Continue sliding scale insulin, diabetic diet for now 8. Fibromyalgia: Continue home medications 9. GERD: Continue PPI 10. Neuropathy: Continue home medications 11. History of SVT: Continue propanol DVT prophylaxis: Lovenox CODE STATUS: full code. I did discuss all the above plan with the patient, she understands and agrees with the plan. 49-year-old patient admitted with right middle finger herpes infection along with rapidly spreading cellulitis of her right forearm and upper arm, she failed outpatient oral antibiotics, started on IV antibiotics and valacyclovir, ID and surgery was consulted, she had debridement yesterday, follow-up on cultures and path results, clinically she is improving, she feels not ready to go home yet, if we get final cultures, and cleared by ID, she can go home on oral antibiotics and oral valacyclovir tomorrow and f/u at wound care clinic.
--- NOTE | 2024-11-26 23:48 | PN ---
Subjective: The patient is lying in bed, had surgical debridement done of her hand. Denies any othe r problems. Able to tolerate antibiotic without any problems. Objective: Vital Signs: Temperature 98, pulse 68, respirations 16, blood pressure 153/63. Lungs: Clear to auscultation. Heart: S1, S2. Regular. Abdomen: Soft, nontender. Bowel sounds present. Extremities: Right hand wound noted under surgical dressing. Medications: The patient is currently on vancomycin and cefepime. Laboratory Data: Shows WBC 3.9, hemoglobin 8.8, platelets are 190. Chemistry shows BUN of 7, creati nine 0.5. Assessment And Plan: 1. Right hand cellulitis and history of herpes, currently on Valtrex. Cellulitis of right hand, javier ng treated with IV antibiotic for 2 weeks. Can be switched to oral on discharge. 2. Chronic obstructive pulmonary disease. 3. Anemia of chronic disease. 4. Leukopenia, possibly secondary to viral infection. 5. Continue current treatment. We will follow the patient as needed. NF/MODL Voice ID: [id number] Report ID: [id number]
[2024-11-27 04:44] LABS: Absolute Eosinophils 0.2 K/uL (0-0.5); Absolute Lymphocytes (CBC) 1.6 K/uL (0.7-4.9); Absolute Monocytes 0.4 K/uL (0.1-1.3); Absolute Neutrophil 2.3 K/uL (1.8-8.0); Eosinophils % 4.7 % (0-4.4); Hemoglobin 8.8 g/dL (12.0-15.0); Lymphocytes % 35.5 % (15.3-44.8); MCH 24.5 pg (27.0-35.0); MCHC 33.9 g/dL (32.0-36.0); MCV 72.2 fL (80-100); MPV 7.5 fL (7.6-11.3); Monocytes % 8.2 % (3.3-12.3); Neutrophils % 50.6 % (41.7-73.7); Nucleated Red Blood Cells % 0.1 % (0-0); Platelets 196 thou/uL (152-406); RBC Red Blood Cell Count 3.59 M/uL (3.86-4.86)
[2024-11-27 05:00] LABS: Albumin 3.1 g/dL (3.4-5.0); Anion Gap 7.9 mEq/L (5.0-15.0); Bilirubin Total 0.4 mg/dL (0.2-1.0); Globulin 3.2 g/dL (2.3-3.5); Potassium 3.9 mEq/L (3.5-5.1); Protein, Total 6.3 g/dL (6.4-8.2)
[2024-11-27] MEDS: BISACODYL E.C. 5 MG TAB PO SCH (11:06)
[2024-11-27] MEDS: PROPRANOLOL HCL 10 MG TAB PO ONE (12:21)
[2024-11-27] MEDS: NA CHLORIDE 0.9% 0 ML ONE (14:52)
--- NOTE | 2024-11-27 17:20 | P.PN ---
Date of Service: 11/27/24 Subjective Awake eating breakfast Finger causing pain more than yesterday Right arm no longer has erythema present ROS 10 point ROS as noted above, otherwise negative Physical Exam General Alert and oriented, NAD CVS: Normal S1 and S2 Lungs: Clear BBS, on RA Abdomen: Soft on palpation, bowel sounds present Extremities: No lower extremity edema Right hand: dressing present on middle finger CDI Vitals Reviewed Problem list Right middle finger herpes infection complicated with cellulitis spreading to the right forearm and upper arm Abdominal pain with recent cholecystectomy Transaminitis Chronic anemia Chronic headache chronic double vision or blurry vision MED SURG NURSE shunt Diabetes mellitus type 2 Fibromyalgia GERD Neuropathy History of SVT COPD Assessment and Plan Right middle finger herpes infection complicated with cellulitis spreading to the right forearm and upper arm Continue Valtrex and IV antibiotics ID and surgery following recommended keflex based on wound cultures Debridement 11/25, f/u on cultures NGTD Abdominal pain with recent cholecystectomy Transaminitis CT abdomen is negative Monitored LFT and resolved Chronic anemia Follow H/H daily- stable Chronic headache chronic double vision or blurry vision MED SURG NURSE shunt Due to increasing symptoms-CT head is negative Supportive care and monitor closely Diabetes mellitus type 2 Continue sliding scale insulin diabetic diet Fibromyalgia: Continue home medications GERD: Continue PPI Neuropathy: Continue home medications History of SVT: Continue propanol COPD: Continue home medications DVT prophylaxis: Lovenox CODE STATUS: full code LOS 2 days
--- NOTE | 2024-11-27 18:24 | P.PN ---
Date of Service: 11/27/24 Subjective: The patient is lying in bed. Denies any other problems. Able to tolerate antibiotic without any problems. Objective: Temp Pulse Resp BP Pulse Ox 98.8 F 64 16 146/84 H 100 11/27/24 16:00 11/27/24 16:00 11/27/24 16:00 11/27/24 16:00 11/27/24 16:00 neuro: aox3 Lungs: Clear to auscultation. Heart: S1, S2. Regular. Abdomen: Soft, nontender. Bowel sounds present. Extremities: Right middle finger wound dressing noted. Medications: The patient is currently on vancomycin and cefepime. Laboratory Data: Shows WBC 4.6, hemoglobin 8.8, platelets are 196. Chemistry shows BUN of 8, creatinine 0.54 Assessment And Plan: 1. Right hand cellulitis on vancomycin and cefepime 2 weeks. Can be switched to oral on discharge 2. history of herpes currently on Valtrex 2. Chronic obstructive pulmonary disease. 3. Anemia of chronic disease. 4. Leukopenia(improved), possibly secondary to viral infection. case round and in agreement with dr magana
[2024-11-27 19:51] LABS: Specific Gravity 1.006 (1.005-1.030); Sqamous Epithelial <5 /HPF (None Seen); Urine Bacteria None Seen /HPF (<20); Urine Bilirubin NEGATIVE (Negative); Urine Blood Negative (Negative); Urine Clarity Clear (Clear); Urine Color Colorless (Yellow); Urine Culture Reflex Order NOT NEEDED; Urine Glucose 1+ (Negative); Urine Ketones NEGATIVE (Negative); Urine Microscopic Reflex YN ORDER UMIC; Urine Nitrite NEGATIVE (Negative); Urine Protein NEGATIVE (Negative); Urine RBC <5 /HPF (None Seen); Urine Urobilinogen Normal (Normal); Urine WBC <5 /HPF (<5)
[2024-11-28 07:23] LABS: Absolute Basophils 0.1 K/uL (0-0.5); Absolute Eosinophils 0.3 K/uL (0-0.5); Absolute Lymphocytes (CBC) 1.7 K/uL (0.7-4.9); Absolute Monocytes 0.4 K/uL (0.1-1.3); Absolute Neutrophil 2.7 K/uL (1.8-8.0); Basophils % 1.1 % (0-1.3); Eosinophils % 5.5 % (0-4.4); Hematocrit 30.7 % (36.0-45.0); Hemoglobin 10.1 g/dL (12.0-15.0); Lymphocytes % 32.7 % (15.3-44.8); MCH 24.1 pg (27.0-35.0); MCHC 32.9 g/dL (32.0-36.0); MCV 73.2 fL (80-100); MPV 7.7 fL (7.6-11.3); Monocytes % 7.4 % (3.3-12.3); Neutrophils % 53.3 % (41.7-73.7); Nucleated Red Blood Cells % 0.1 % (0-0); Platelets 235 thou/uL (152-406); Red Cell Distribution Width 15.9 % (12.1-15.2)
[2024-11-28 07:37] VITALS: O2SAT 99
[2024-11-28 07:48] LABS: Albumin 3.5 g/dL (3.4-5.0); Anion Gap 9.6 mEq/L (5.0-15.0); Bilirubin Total 0.4 mg/dL (0.2-1.0); Globulin 3.5 g/dL (2.3-3.5); Potassium 3.6 mEq/L (3.5-5.1)
[2024-11-28 12:40] VITALS: BP 162/81; TEMP 97.9
--- NOTE | 2024-11-28 12:59 | P.DS ---
Admission Date: 11/24/24 Discharge Date: 11/28/24 Disposition: ROUTINE DISCHARGE Discharge Condition: FAIR Reason for Admission: Right middle finger infection Brief History of Present Illness: 49-year-old patient presented with herpes infection on the right middle finger of 2 days duration. She was sent home on doxycycline and valacyclovir, she presented due to worsening erythema and extension of erythema from right hand to the right forearm and upper arm, due to cellulitis extension, She had vesicles on the right middle finger. She has chronic headache, chronic double vision. She was also complaining of nausea and vomiting for the last couple of days. She has chronic issues with abdominal pain, and nausea and vomiting, she had cholecystectomy 1 month back. She alsp has chronic issues with alternating constipation and diarrhea. Patient was hospitalized for further management. 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 General surgeon Dr. Arevalo evaluated patient and performed wound debridement. Deep tissue wound culture has not yielded any growth. Patient was evaluated by infectious disease Dr. Reyes who recommend outpatient antibiotic treatment with Levaquin. Patient had an episode of vomiting. She has chronic abdominal pain, chronic nausea and vomiting. History of gastric sleeve surgery. Dr. Arevalo suspect patient has gastroparesis. Patient is prescribed a trial of erythromycin for gastroparesis. Patient vitals are stable, she has tolerated diet. He is discharged with Levaquin and Valtrex. Patient states she has made arrangement to follow-up with a project management consultant at [place] regarding her gastroparesis. Vital Signs/Physical Exam: Temp Pulse Resp BP Pulse Ox 97.9 F 64 18 162/81 H 99 11/28/24 12:00 11/28/24 12:00 11/28/24 12:00 11/28/24 12:11/28/24 12:00 General: Alert, In no apparent distress, Oriented x3 HEENT: Mucous membr. moist/pink Neck: JVD not distended Respiratory: Clear to auscultation bilaterally, Normal air movement Cardiovascular: No edema, Regular rate/rhythm, Normal S1 S2 Gastrointestinal: Soft and benign, Non-distended Musculoskeletal: Other (Right middle finger with clean dressing) Integumentary: No cyanosis Neurological: Normal strength at 5/5 x4 extr Laboratory Data at Discharge: WBC 5.10 thou/uL (4.3-10.9) 11/28/24 07:05 Hgb 10.1 g/dL (12.0-15.0) L D 11/28/24 07:05 Hct 30.7 % (36.0-45.0) L 11/28/24 07:05 Plt Count 235 thou/uL (152-406) 11/28/24 07:05 PT 13.9 SECONDS (10-13.0) H 11/24/24 10:40 INR 1.23 11/24/24 10:40 APTT 26.5 SECONDS (27.2-37.4) L 11/24/24 10:40 Sodium 137 mEq/L (136-145) 11/28/24 07:05 Potassium 3.6 mEq/L (3.5-5.1) 11/28/24 07:05 BUN 8 mg/dL (7-18) 11/28/24 07:05 Creatinine 0.66 mg/dL (0.55-1.02) 11/28/24 07:05 Glucose 140 mg/dL (74-106) H 11/28/24 07:05 Total Bilirubin 0.4 mg/dL (0.2-1.0) 11/28/24 07:05 AST 57 U/L (15-37) H 11/28/24 07:05 ALT 57 U/L (13-56) H 11/28/24 07:05 Alkaline Phosphatase 60 U/L (45-117) 11/28/24 07:05 Home Medications: Cariprazine HCl [Vraylar] 3 mg PO DAILY 10/02/24 Dexlansoprazole [Dexlansoprazole Dr] 60 mg PO DAILY 10/02/24 Duloxetine HCl 30 mg PO DAILY 10/02/24 Duloxetine HCl 60 mg PO DAILY 10/02/24 Eszopiclone 3 mg PO BEDTIME 10/02/24 Ezetimibe [Zetia*] 10 mg PO BEDTIME 10/02/24 Fenofibrate [Tricor*] 48 mg PO DAILY 10/02/24 Insulin Degludec [Tresiba Flextouch U-200] 22 unit SQ BEDTIME 10/02/24 Lactulose 30 ml PO PRN PRN 10/02/24 Lamotrigine [Lamotrigine ER] 100 mg PO DAILY 10/02/24 Lamotrigine [Lamotrigine ER] 300 mg PO DAILY 10/02/24 Metformin HCl 1,000 mg PO BID 10/02/24 Mirtazapine 15 mg PO BEDTIME 10/02/24 Ondansetron [Ondansetron Odt] 8 mg PO PRN PRN 10/02/24 Propranolol HCl 10 mg PO BID 10/02/24 Semaglutide [Ozempic] 0.5 mg SQ EVERY 7TH DAY 10/02/24 Vitamin D [Drisdol*] 50,000 unit PO EVERY 7TH DAY 10/02/24 clonazePAM [Clonazepam] 1.5 mg PO DAILYPRN PRN 10/02/24 Erythromycin Base [Erythromycin] 250 mg PO TID #42 tab 11/28/24 Oxycodone HCl 5 mg PO Q6H #15 tab 11/28/24 Valacyclovir HCl [Valacyclovir] 1,000 mg PO TID #15 tab 11/28/24 levoFLOXacin [Levaquin] 750 mg PO DAILY #7 tab 11/28/24 New Medications: Erythromycin Base [Erythromycin] 250 mg PO TID #42 tab levoFLOXacin [Levaquin] 750 mg PO DAILY #7 tab Oxycodone HCl 5 mg PO Q6H #15 tab Valacyclovir HCl [Valacyclovir] 1,000 mg PO TID #15 tab Diet: AHA Activity: Ad gene Followup: SARA RUIZ [Primary Care Provider] - 1-2 Weeks Time spent managing pt's care (in minutes): 36
[2024-11-28] MEDS: ONDANSETRON 4 MG/2 ML VIAL IV ONE (13:57)
== END 2024-11-28 14:07 | disposition home or self-care (01) | DRG 580 ==
LOC: ER 09:53 → ERHOLD 12:19 → 4TH 15:34
PROVIDERS: ADMIT Hospitalist; ATTEND Internal Medicine
PROC: 0JBJ0ZZ Excision of Right Hand Subcutaneous Tissue and Fascia, Open Approach (ICD-10-PCS; principal; 2024-11-25 12:30)
PROC: 5A1D70Z Performance of Urinary Filtration, Intermittent, Less than 6 Hours Per Day (ICD-10-PCS; 2024-11-26)
DX: L03.011 Cellulitis of right finger (principal); E11.52 Type 2 diabetes mellitus with diabetic peripheral angiopathy with gangrene; L88 Pyoderma gangrenosum; J44.9 Chronic obstructive pulmonary disease, unspecified; K21.9 Gastro-esophageal reflux disease without esophagitis; E11.40 Type 2 diabetes mellitus with diabetic neuropathy, unspecified; E11.43 Type 2 diabetes mellitus with diabetic autonomic (poly)neuropathy; K31.84 Gastroparesis; D63.8 Anemia in other chronic diseases classified elsewhere; H53.2 Diplopia; M79.7 Fibromyalgia; B00.9 Herpesviral infection, unspecified; R74.01 Elevation of levels of liver transaminase levels; Z88.5 Allergy status to narcotic agent; Z79.4 Long term (current) use of insulin; Z88.8 Allergy status to other drugs, medicaments and biological substances; Z98.84 Bariatric surgery status; Z90.49 Acquired absence of other specified parts of digestive tract; Z79.84 Long term (current) use of oral hypoglycemic drugs; Z79.899 Other long term (current) drug therapy
CPT/HCPCS: 36415; 70450; 74176; 80053; 80202; 81001; 82947; 83605; 85025; 85610; 85730; 87040; 87070; 87075; 87176; 87205; 88304; 96365; 96375; 99283; 99285; J0692; J1650; J1815; J2003; J2250; J2270; J2405; J2704; J3010; J3370; J3590; J7030; J7040; J7050; Q0162